=== PATIENT | female | born 1975 | race Caucasian/White ===

== ENCOUNTER 2020-11-19 15:07 | Outpatient (REF) | payer OTHER, SELFPAY ==
--- NOTE | ~2020-11-19 | US_ITS ---
EXAMINATION: ULTRASOUND PELVIC COMPLETE ULTRASOUND TRANSVAGINAL CLINICAL INFORMATION: Check IUD. COMPARISON: None TECHNIQUE: Transabdominal and transvaginal imaging of pelvis is performed. FINDINGS: The uterus is retroverted measuring 8.4 cm in length, 5.8 cm in AP and 5.9 cm in transverse dimension. There are two hypoechoic lesions. 1. Lesion in the anterior fundus measures 3.4 x 3.5 x 3.0 cm. 2. Lesion in the lower anterior uterine segment measures 2.4 x 2.4 x 2.6 cm. The endometrial thickness is 0.7 cm. There is no IUD visualized at this time. There are several nabothian cysts in the cervix. There is a complex area in the cervix measuring 1.5 x 1.3 x 1.5 cm. The right ovary measures 2.6 x 2.0 x 2.37 and volume 6.1 mL. The left ovary measures 3.7 x 2.5 x 2.8 cm and volume 14.0 mL. There is a complex anechoic cyst/daughter cyst measuring 1.8 x 1.8 x 2.0 cm. There is no free fluid in the cul-de-sac. US/US transvaginal IMPRESSION: 1. Two uterine fibroids as described above. 2. Hypoechoic solid appearing lesion in the cervix likely a polyp. Correlate with clinical exam or hysterosonograph. 3. Complex cyst left ovary. 4. No IUD seen. By history patient has this removed. 5. Small nabothian cysts in the cervix.
--- NOTE | ~2020-11-19 | US_ITS ---
EXAMINATION: ULTRASOUND PELVIC COMPLETE ULTRASOUND TRANSVAGINAL CLINICAL INFORMATION: Check IUD. COMPARISON: None TECHNIQUE: Transabdominal and transvaginal imaging of pelvis is performed. FINDINGS: The uterus is retroverted measuring 8.4 cm in length, 5.8 cm in AP and 5.9 cm in transverse dimension. There are two hypoechoic lesions. 1. Lesion in the anterior fundus measures 3.4 x 3.5 x 3.0 cm. 2. Lesion in the lower anterior uterine segment measures 2.4 x 2.4 x 2.6 cm. The endometrial thickness is 0.7 cm. There is no IUD visualized at this time. There are several nabothian cysts in the cervix. There is a complex area in the cervix measuring 1.5 x 1.3 x 1.5 cm. The right ovary measures 2.6 x 2.0 x 2.37 and volume 6.1 mL. The left ovary measures 3.7 x 2.5 x 2.8 cm and volume 14.0 mL. There is a complex anechoic cyst/daughter cyst measuring 1.8 x 1.8 x 2.0 cm. There is no free fluid in the cul-de-sac. US/US pelvic complete IMPRESSION: 1. Two uterine fibroids as described above. 2. Hypoechoic solid appearing lesion in the cervix likely a polyp. Correlate with clinical exam or hysterosonograph. 3. Complex cyst left ovary. 4. No IUD seen. By history patient has this removed. 5. Small nabothian cysts in the cervix.
== END 2020-11-19 15:08 | disposition home or self-care (01) ==
LOC: HO.US 15:07
PROVIDERS: PCP Student in an Organized Health Care Education/Training Program; Visit Provider Advanced Practice Midwife
DX: Z30.431 Encounter for routine checking of intrauterine contraceptive device (principal)
CPT/HCPCS: 76830; 76856

== ENCOUNTER 2021-02-04 15:57 | Outpatient (REF) | payer OTHER, SELFPAY ==
--- NOTE | ~2021-02-04 | US_ITS ---
EXAMINATION: US PELVIS COMPLETE CLINICAL INFORMATION: Follow-up left ovarian cyst; the last menstrual period was on 01/21/2021. COMPARISON: Pelvic ultrasound dated 11/20/2020. TECHNIQUE: Transabdominal and transvaginal imaging were performed. FINDINGS: The uterus is of normal size and echogenicity measuring 9.3 x 7.5 x 7.4 cm. The uterus is retroverted. A regular, homogeneous endometrium is identified measuring 1.2 cm. FIBROIDS: There are 2 fibroids seen. 1. Location: Rightward uterine body, exophytic subserosal. Size: 3.3 x 2.6 x 2.9 cm. Prior: 2.4 x 2.4 x 2.6 cm. Fibroid characteristics: Heterogeneous echotexture. 2. Location: Leftward fundus, subserosal. Size: 4.0 x 2.8 x 3.8 cm. Prior: 3.4 x 3.5 x 3.0 cm. Fibroid characteristics: Heterogeneously hyperechoic. Both ovaries are of normal size and echogenicity. The right measures 3.6 x 2.1 x 2.3 cm for a volume of 9.1 mL. The left measures 2.7 x 2.2 x 2.3 cm for a volume of 7.2 mL. The left ovary contains a 1.9 x 1.8 x 1.7 cm simple cyst. There is no pelvic free fluid. No adnexal mass is seen. US/US pelvic and transvaginal IMPRESSION: 1. Uterine fibroids are redemonstrated, as above. 2. A 1.9 cm in maximal diameter simple left ovarian cyst is seen.
== END 2021-02-04 15:58 | disposition home or self-care (01) ==
LOC: HO.US 15:57
PROVIDERS: Visit Provider Advanced Practice Midwife
DX: N83.202 Unspecified ovarian cyst, left side (principal)
CPT/HCPCS: 76830; 76856

== ENCOUNTER 2021-02-05 16:21 | Outpatient (REF) | payer OTHER, SELFPAY ==
--- NOTE | ~2021-02-05 | MM_ITS ---
EXAMINATION: MM SCREENING DIGITAL BREAST TOMOSYNTHESIS, BILATERAL CLINICAL INFORMATION: Screening. Asymptomatic. The lifetime risk of breast cancer based on the Tyrer-Cuzick Model is 14%. COMPARISON: Mammography: 08/08/2019, 04/06/2018, 12/23/2016, 09/30/2011 TECHNIQUE: Digital breast tomosynthesis is performed in both the craniocaudal and mediolateral oblique views along with computer-aided detection (CAD). Synthesized 2D images are generated from the tomosynthesis. FINDINGS: The breasts are heterogeneously dense, which may obscure small masses (ACR BI-RADS breast composition Category c). There is inhomogeneous parenchymal pattern similar to prior studies. There is no significant mass or architectural abnormality. No abnormal calcifications. The axilla and skin contours are unremarkable. No significant changes. MM/MM tomosynthesis screening BI IMPRESSION: No mammographic evidence of malignancy. ASSESSMENT: BI-RADS 1: Negative RECOMMENDATION: Routine annual mammography screening. This patient's information was entered into a reminder system with a target due date for their next mammogram.
== END 2021-02-05 16:22 | disposition home or self-care (01) ==
LOC: HO.MAMMO 16:21
PROVIDERS: Visit Provider Student in an Organized Health Care Education/Training Program
DX: Z12.31 Encounter for screening mammogram for malignant neoplasm of breast (principal)
CPT/HCPCS: 77063; 77067

== ENCOUNTER 2021-11-14 11:16 | Emergency (ER) | payer OTHER, SELFPAY ==
[2021-11-14 11:34] VITALS: BP 127/72; PULSE 80; RESP 19; TEMP 36.6; O2SAT 98; BMI 34.8
[2021-11-14 13:26] LABS: MANUAL DIFF FLAG NO
[2021-11-14 13:30] LABS: Basophils Absolute Auto 0.1 X10*3/uL (0.0-0.2); Basophils Percent Auto 1.4 % (0-2); Eosinophils Absolute Auto 0.1 X10*3/uL (0.0-0.4); Eosinophils Percent Auto 2.5 % (0-4); Hematocrit 25.7 % (37.0-47.0); Hemoglobin 8.4 g/dl (12.0-16.0); Imm Gran Abs Auto 0.01 X10*3/uL (0.00-0.03); Imm Gran Pct Auto 0.2 % (0.0-0.4); Lymphocytes Absolute Auto 1.3 X10*3/uL (1.2-4.9); Lymphocytes Percent Auto 22.8 % (20-40); Mean Corpuscular HGB Conc 32.7 g/dl (31.0-35.0); Mean Corpuscular Hemoglobin 27.7 pg (27.0-33.0); Mean Corpuscular Volume 84.8 fL (80.0-98.0); Mean Platelet Volume 11.1 fL (9.4-12.3); Monocytes Absolute Auto 0.4 X10*3/uL (0.1-1.2); Monocytes Percent Auto 7.8 % (2-11); Neutrophils Absolute Auto 3.7 x10*3/uL (2.0-8.3); Neutrophils Percent Auto 65.3 % (45-73); Platelet Count 278 X10*3/uL (160-400); Red Blood Count 3.03 X10*6/uL (4.20-5.50); Red Cell Distribution Width 15.7 % (11.0-16.0); White Blood Count 5.7 X10*3/uL (4.8-10.8)
[2021-11-14 13:42] LABS: Anion Gap 10 (12-20); Blood Urea Nitrogen 14 mg/dL (9-16); Calcium 9.4 mg/dL (8.4-10.2); Carbon Dioxide 31 mmol/L (22-29); Chloride 102 mmol/L (96-108); Creatinine Clr Calc Pharmacy 131.7; Estimated Glomerular Filt Rate > 60; Glucose Random 102 mg/dL (60-115); Potassium 4.1 mmol/L (3.3-5.1); Sodium 139 mmol/L (135-145)
[2021-11-14 13:55] LABS: Appearance Urine CLEAR; Color Urine YELLOW; Glucose Urine UA NEG (NEG); Leukocyte Esterase Urine NEG (NEG); Nitrite Urine NEG (NEG); PH 6.5 (5.0-8.0); UACC Culture Trigger NO; Urine Blood 3+ (NEG); Urine Ketones NEG (NEG); Urine Protein NEG (NEG-TRACE)
[2021-11-14 13:57] LABS: UPreg QC Valid YES; Urine Pregnancy NEGATIVE (NEGATIVE)
[2021-11-14 14:04] LABS: WBC Urine 0 /HPF (0-4)
[2021-11-14 14:05] LABS: Bacteria Urine TRACE /LPF; Squamous Epithelial Cell Urine TRACE /LPF
[2021-11-14 14:28] VITALS: BP 100/86
--- NOTE | 2021-11-14 14:43 | ED_ITS ---
HPI - Female Genitourinary General Chief complaint: Vaginal Bleeding Stated complaint: heavy bleeding/chest pains/dizziness/SOB Time Seen by Provider: 11/14/21 13:20 Source: patient and family Mode of arrival: ambulatory Limitations: no limitations History of Present Illness HPI Narrative: 46 yo female with history of hypothyroidism here with reports of heavy vaginal bleeding for the last 3 days. Patient tells me that she has used about 15-20 pads in the last 3 days. She reports some lower pelvic cramping and low back pain. Also feeling like she has some palpitations with movement, generalized weakness and headache. She is not on any anticoagulation. She is not on any control. She does have a history of irregular menses over the last several years and her last period was in August. Related Data Allergies Allergy/AdvReac Type Severity Reaction Status Date / Time azithromycin Allergy Unknown Hives Verified 11/14/21 16:02 Erythromycin Allergy Unknown Unknown Unverified 11/14/21 16:02 erythromycin base Allergy Unknown HIVES, Unverified 05/17/20 15:44 [ERYTHROMYCIN BASE] REDNESS Review of Systems Review of Systems: Yes all other systems are reviewed and are negative Constitutional: Constitutional: Reports no additional constitutional complaints, Denies body ache(s), Denies chills, Denies fever(s), Reports headache(s) and Reports weakness Eyes: Eyes: Reports no additional eye complaints and Denies change in vision ENT: Reports system reviewed and no additional complaints, except as documented, Denies dizziness, Reports headache(s), Denies nasal congestion, Denies nasal discharge and Denies neck pain Cardiovascular: Cardiovascular: Reports no additional cardiovascular complaints, Denies chest pain, Denies leg edema, Reports palpitations and Denies dyspnea Respiratory: Respiratory: Reports no additional respiratory complaints, Denies cough and Denies dyspnea Gastrointestinal: Gastrointestinal: Reports no additional gastrointestinal complaints, Denies abdominal pain, Denies diarrhea, Denies nausea and Denies vomiting Genitourinary: Genitourinary: Reports no additional female genitourinary complaints, Reports abnormal vaginal bleeding, Reports pelvic pain and Denies urinary incontinence Musculoskeletal: Musculoskeletal: Reports no additional musculoskeletal complaints, Reports back pain, Denies arthralgias, Denies joint swelling, Denies neck pain, Denies numbness and Denies tingling Integumentary/Breasts: Skin/Breast: Reports system reviewed and no additional complaints, except as docu and Denies rash Neurologic: Reports system reviewed and no additional complaints, except as documented, Denies Abnormal speech present, Denies dizziness, Reports headache(s), Denies numbness, Denies tingling and Reports weakness Endocrine: Endocrine: Reports palpitations [facility] Past Medical History Attestation statement: The following information was validated with the patient. Source: old records reviewed and nursing notes reviewed Medical History HTN (hypertension) Hypothyroid Rheumatoid arthritis Social History Social History Alcohol intake: current Alcohol intake frequency: holidays/special occasions only Patient Tobacco Use Status: Never used Tobacco Use of substances other than those prescribed or required for medical reasons: No Advance Directives: No Advance Directives Information Provided: No Patient : No Physical Exam Vital Signs: Vital Signs: Last Vital Signs Temp 98.4 F 11/14/21 15:37 Pulse 73 11/14/21 15:37 Resp 18 11/14/21 15:37 BP 107/57 L 11/14/21 15:37 Pulse Ox 98 11/14/21 15:37 BMI result Body Mass Index 34.8 Const: General: cooperative, healthy appearing, comfortable and no acute distress Orientation/consciousness: patient oriented x3 Limitations: no limitations HENMT: Other: Pale conjunctiva Head: Yes normal to inspection Ears: hearing grossly normal bilaterally General nose exam: Normal external nose present Face and sinus: Yes normal facial exam Mouth: Normal oral and palatal mucosa present Throat: Yes posterior oropharynx normal Eyes: General: appearance normal, both eyes and all related structures Pupils: Equal, round and reactive pupils present Neck: Neck: Yes normal visual inspection Chest: Chest palpation & inspection: normal inspection of the chest Resp: Effort & Inspection: normal respiratory effort Auscultation: clear to auscultation bilaterally Cardio: Rate: regular rate Rhythm: regular rhythm Peripheral pulses: Peripheral pulses 2+ throughout GI: Inspection: Yes normal to inspection Palpation (GI): Soft to palpation and nontender Auscultation: normal bowel sounds : 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: 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 External Female Exam: normal external appearance Speculum Exam - Vagina: normal appearance of the vagina and vaginal bleeding (slight-no clots) Speculum Exam - Cervix: normal appearance of the cervix OB/external & speculum: vaginal bleeding (slight-no clots) Back/Spine/Pelvis: Thoracic/Lumbar Spine: thoracic and lumbar spine normal to inspection Skin: General skin exam: no rashes or lesions noted Neuro: General: patient oriented x3, no focal motor deficits and normal sensation to monofilament Cranial nerves: Yes Equal, round and reactive pupils present Cognition (Neuro): normal cognition Speech: No Abnormal speech present Gait exam (Neuro): Normal gait present Motor exam (neuro): 5/5 motor strength present throughout Extrem: General: Yes normal to inspection Course Course Course Narrative: 46-year-old female here with heavy vaginal bleeding for the last 3 days with headache, palpitations, generalized malaise. Will check labs, urine , orthostatic vital signs, pelvic exam 1540-+ortho with HR increase in 30 point, blood pressure stable. hgb 8.4. No previous to compare to. Will give 1 LNS. 1645-pelvic exam shows scant bleeding. Will send CT NG although patient is not concern for STD exposure. Labs on patient portal from 12/2020 who hgb 12/hct 35. Patient tells me that she feels that the bleeding has slowed down since being here. She only has slight bleeding on exam. 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 We discussed to return for worsening bleeding or feeling more symptomatic and at that time would consider transfusion. Reviewed worrisome signs and symptoms of when to return to the emergency department. Comfortable discharge home. MDM - Female Genitourinary Medical Records Attestation: I reviewed the patient's medical records. Lab Data Attestation: I reviewed the patient's lab results. Result diagrams: 11/14/21 13:21 11/14/21 13:21 Labs: Lab Results 11/14/21 11/14/21 11/14/21 Range/Units 13:21 13:21 13:45 WBC 5.7 (4.8-10.8) X10*3/uL RBC 3.03 L (4.20-5.50) X10*6/uL Hgb 8.4 L (12.0-16.0) g/dl Hct 25.7 L (37.0-47.0) % MCV 84.8 (80.0-98.0) fL MCH 27.7 (27.0-33.0) pg MCHC 32.7 (31.0-35.0) g/dl RDW 15.7 (11.0-16.0) % Plt Count 278 (160-400) X10*3/uL MPV 11.1 (9.4-12.3) fL Immature Gran % (Auto) 0.2 (0.0-0.4) % Neut % (Auto) 65.3 (45-73) % Lymph % (Auto) 22.8 (20-40) % Whitfield % (Auto) 7.8 (2-11) % Eos % (Auto) 2.5 (0-4) % Baso % (Auto) 1.4 (0-2) % Lymph # (Auto) 1.3 (1.2-4.9) X10*3/uL Whitfield # (Auto) 0.4 (0.1-1.2) X10*3/uL Eos # (Auto) 0.1 (0.0-0.4) X10*3/uL Baso # (Auto) 0.1 (0.0-0.2) X10*3/uL Abs Immat Gran (auto) 0.01 (0.00-0.03) X10*3/uL Absolute Neuts (auto) 3.7 (2.0-8.3) x10*3/uL Absolute Nucleated RBC 0.000 (0.0-0.012) X10*3/uL Nucleated RBC % (auto) 0.0 (0.0-0.2) /100WBC PT (9.9-13.0) SEC INR (0.9-1.1) Sodium 139 (135-145) mmol/L Potassium 4.1 (3.3-5.1) mmol/L Chloride 102 (96-108) mmol/L Carbon Dioxide 31 H (22-29) mmol/L Anion Gap 10 L (12-20) BUN 14 (9-16) mg/dL Creatinine 0.63 (0.5-1.4) mg/dL Estim Creat Clear Calc 131.7 Estimated GFR > 60 Random Glucose 102 (60-115) mg/dL Calcium 9.4 (8.4-10.2) mg/dL Urine Color YELLOW Urine Appearance CLEAR Urine pH 6.5 (5.0-8.0) Ur Specific Perry 1.020 (1.005-1.025) Urine Protein NEG (NEG-TRACE) MG/DL Urine Glucose (UA) NEG (NEG) MG/DL Urine Ketones NEG (NEG) MG/DL Urine Blood 3+ H (NEG) Urine Nitrite NEG (NEG) Ur Leukocyte Esterase NEG (NEG) Urine RBC 15-29 H (0) /HPF Urine WBC 0 (0-4) /HPF Ur Squamous Epith Cells TRACE /LPF Urine Bacteria TRACE /LPF Urine Test (NEGATIVE) 11/14/21 11/14/21 Range/Units 13:45 15:07 WBC (4.8-10.8) X10*3/uL RBC (4.20-5.50) X10*6/uL Hgb (12.0-16.0) g/dl Hct (37.0-47.0) % MCV (80.0-98.0) fL MCH (27.0-33.0) pg MCHC (31.0-35.0) g/dl RDW (11.0-16.0) % Plt Count (160-400) X10*3/uL MPV (9.4-12.3) fL Immature Gran % (Auto) (0.0-0.4) % Neut % (Auto) (45-73) % Lymph % (Auto) (20-40) % Whitfield % (Auto) (2-11) % Eos % (Auto) (0-4) % Baso % (Auto) (0-2) % Lymph # (Auto) (1.2-4.9) X10*3/uL Whitfield # (Auto) (0.1-1.2) X10*3/uL Eos # (Auto) (0.0-0.4) X10*3/uL Baso # (Auto) (0.0-0.2) X10*3/uL Abs Immat Gran (auto) (0.00-0.03) X10*3/uL Absolute Neuts (auto) (2.0-8.3) x10*3/uL Absolute Nucleated RBC (0.0-0.012) X10*3/uL Nucleated RBC % (auto) (0.0-0.2) /100WBC PT 11.9 (9.9-13.0) SEC INR 1.0 (0.9-1.1) Sodium (135-145) mmol/L Potassium (3.3-5.1) mmol/L Chloride (96-108) mmol/L Carbon Dioxide (22-29) mmol/L Anion Gap (12-20) BUN (9-16) mg/dL Creatinine (0.5-1.4) mg/dL Estim Creat Clear Calc Estimated GFR Random Glucose (60-115) mg/dL Calcium (8.4-10.2) mg/dL Urine Color Urine Appearance Urine pH (5.0-8.0) Ur Specific Perry (1.005-1.025) Urine Protein (NEG-TRACE) MG/DL Urine Glucose (UA) (NEG) MG/DL Urine Ketones (NEG) MG/DL Urine Blood (NEG) Urine Nitrite (NEG) Ur Leukocyte Esterase (NEG) Urine RBC (0) /HPF Urine WBC (0-4) /HPF Ur Squamous Epith Cells /LPF Urine Bacteria /LPF Urine Test NEGATIVE (NEGATIVE) Discharge Plan Discharge Clinical Impression: Menorrhagia Patient Disposition: Home, Self-Care Instructions: Menorrhagia (ED) Additional Instructions: Return if you are changing her pad every hour, increasing weakness or dizziness Follow-up with gynecology Referrals: Faith Peters MD [Primary Care Provider] - 1 week (as needed) Interventions: ED Discharge Assessment Last Done: 11/14/21 16:58 Discharge Date/Time: 11/14/21 17:02
[2021-11-14 15:23] LABS: Prothrombin Time 11.9 SEC (9.9-13.0)
[2021-11-14 15:31] VITALS: BP 107/57; BP 97/44; PULSE 61
[2021-11-14 15:33] VITALS: BP 94/55; PULSE 94
[2021-11-14 15:37] VITALS: BP 107/57; PULSE 73; RESP 18; TEMP 36.9; O2SAT 98
[2021-11-14] MEDS: 0.9 % Sodium Chloride 1,000 ML 999 ML IV (16:01)
[2021-11-15 09:47] LABS: CT PCR NOT DETECTED (Not Detect.); NG PCR NOT DETECTED (Not Detect.)
== END 2021-11-14 17:02 | disposition home or self-care (01) ==
PROVIDERS: Nurse Practitioner Family; Emergency Provider Emergency Medicine; PCP Student in an Organized Health Care Education/Training Program
DX: N92.1 Excessive and frequent menstruation with irregular cycle (principal); I10 Essential (primary) hypertension
CPT/HCPCS: 36415; 80048; 81001; 81025; 85025; 85610; 87491; 87591; 96360; 99284

== ENCOUNTER 2021-12-17 13:39 | Outpatient (REF) | payer OTHER, SELFPAY ==
--- NOTE | ~2021-12-17 | US_ITS ---
EXAMINATION: US PELVIS CLINICAL INFORMATION: Leiomyoma of uterus. Excessive and frequent menses. COMPARISON: Previous pelvic ultrasound most recent January 2021 TECHNIQUE: Ultrasound of the pelvis is performed using both transabdominal and transvaginal transducers along with Doppler. Transvaginal imaging is performed due to inadequate visualization transabdominally. FINDINGS: The uterus is retroverted and retroflexed and measures 9.5 x 6.2 x 7.5 cm in dimension. There are 2 focal uterine lesions suggestive of fibroids measuring 3.6 x 3.1 x 4.1 cm in the left posterior upper uterine body and 3 cm in the right posterior lower uterine segment. These do not appear appreciably changed. Endometrial thickness is normal measuring 1.4 cm. The endometrium appears very hypervascular. There is a focal hyperechoic area in the endometrium questionable for a polyp. This measures 2.1 x 1 x 1.5 cm. There is a 1.8 x 1.4 x 1.9 cm hypoechoic lesion in the cervix questionable for complex nabothian cyst versus fibroid. This was not seen on most recent exam on January 2021, but does not appear appreciably changed from older exam October 2020. The right ovary is normal and measures 3.6 x 2.2 x 1.5 cm. The left ovary measures 3.7 x 3 x 2.2 cm. There is a 2.5 x 3.2 x 2.2 cm minimally complex left ovarian cyst with several thin septations. There is no fluid in the pelvis. US/US pelvic and transvaginal IMPRESSION: Uterine fibroids similar to previous exam. Question 1.8 x 1.4 x 1.9 cm complex nabothian cyst versus cervical fibroid. Very hypervascular heterogeneous endometrium with echogenic area questionable for a polyp. 2.5 x 3.2 x 2.2 cm minimally complex left ovarian cyst.
== END 2021-12-17 13:40 | disposition home or self-care (01) ==
LOC: HO.HMGCX 13:39
PROVIDERS: Visit Provider Advanced Practice Midwife
DX: N92.1 Excessive and frequent menstruation with irregular cycle (principal); D25.9 Leiomyoma of uterus, unspecified
CPT/HCPCS: 76830; 76856

== ENCOUNTER → 2022-01-16 09:40 | Outpatient (BNVA) | payer OTHER, SELFPAY | PROVIDERS: Visit Provider Advanced Practice Midwife | DX: D21.9 Benign neoplasm of connective and other soft tissue, unspecified (principal) ==

== ENCOUNTER 2022-01-17 23:05 | Emergency (ER) | payer OTHER, SELFPAY ==
--- NOTE | ~2022-01-17 | XR_ITS ---
EXAMINATION: XR CHEST CLINICAL INFORMATION: Palpitations. COMPARISON: 02/18/2017 TECHNIQUE: Frontal view of the chest was obtained. FINDINGS: Lungs are mildly hyperexpanded. No consolidation, pneumothorax, or pleural effusion. Cardiomediastinal silhouette is normal. Pulmonary vasculature is unremarkable. No acute osseous findings. XR/XR chest 1V IMPRESSION: No acute pulmonary findings.
--- NOTE | 2022-01-17 23:16 | ECG_ITS ---
Test Reason : PALPITATIONS Blood Pressure : / mmHG Vent. Rate : 068 BPM Atrial Rate : 068 BPM P-R Int : 176 ms QRS Dur : 102 ms QT Int : 420 ms P-R-T Axes : 048 013 012 degrees QTc Int : 446 ms Normal sinus rhythm with sinus arrhythmia Incomplete right bundle branch block Nonspecific T wave abnormality Abnormal ECG When compared with ECG of 06-NOV-2012 09:49, No significant change was found Referred By: Generic ED Physician Electronically Signed By:EFREM OVIEDO
[2022-01-17 23:52] VITALS: BP 114/59; PULSE 68; RESP 14; TEMP 36.9; O2SAT 98; BMI 34.5
[2022-01-17 23:52] LABS: MANUAL DIFF FLAG NO
[2022-01-18 00:05] LABS: Basophils Absolute Auto 0.1 X10*3/uL (0.0-0.2); Basophils Percent Auto 1.5 % (0-2); Eosinophils Absolute Auto 0.2 X10*3/uL (0.0-0.4); Eosinophils Percent Auto 3.1 % (0-4); Hematocrit 31.6 % (37.0-47.0); Hemoglobin 9.5 g/dl (12.0-16.0); Imm Gran Abs Auto 0.01 X10*3/uL (0.00-0.03); Imm Gran Pct Auto 0.1 % (0.0-0.4); Lymphocytes Absolute Auto 1.3 X10*3/uL (1.2-4.9); Lymphocytes Percent Auto 19.6 % (20-40); Mean Corpuscular HGB Conc 30.1 g/dl (31.0-35.0); Mean Corpuscular Hemoglobin 23.2 pg (27.0-33.0); Mean Corpuscular Volume 77.3 fL (80.0-98.0); Monocytes Absolute Auto 0.5 X10*3/uL (0.1-1.2); Monocytes Percent Auto 7.7 % (2-11); Neutrophils Absolute Auto 4.6 x10*3/uL (2.0-8.3); Platelet Count 404 X10*3/uL (160-400); Red Blood Count 4.09 X10*6/uL (4.20-5.50); Red Cell Distribution Width 19.9 % (11.0-16.0); White Blood Count 6.8 X10*3/uL (4.8-10.8)
[2022-01-18 00:12] LABS: Anion Gap 12 (12-20); Blood Urea Nitrogen 11 mg/dL (9-16); Calcium 9.3 mg/dL (8.4-10.2); Carbon Dioxide 28 mmol/L (22-29); Chloride 100 mmol/L (96-108); Creatinine Clr Calc Pharmacy 94.9; Estimated Glomerular Filt Rate > 60; Glucose Random 104 mg/dL (60-115); Potassium 3.7 mmol/L (3.3-5.1); Sodium 136 mmol/L (135-145)
[2022-01-18 00:18] LABS: Troponin-I High Sensitivity < 3.5 ng/L (<3.5-17.0)
[2022-01-18 00:26] LABS: COVID-19 Test Negative (Negative); IDNOW Serial# 16C4AD1C; Influenza A Negative (Negative); Influenza B2 Negative (Negative)
--- NOTE | 2022-01-18 00:38 | ED_ITS ---
HPI - Arrhythmia/Palpitations General Chief Complaint: Arrhythmia/Palpitations Stated Complaint: heart is skipping every 4-5 beats? Time Seen by Provider: 01/18/22 00:37 Source: patient Mode of arrival: ambulatory Limitations: no limitations History of Present Illness complaint: rapid heart beat, skipped beats (feels dizzy, chest pain) and palpitations Onset (ago): hour(s) (3) Duration: intermittent Severity: moderate Context: occurred during rest Associated symptoms: chest pain, shortness of breath, anxiety and other (dizziness) Related Data Home Medications Medication Instructions Recorded Confirmed cholecalciferol (vitamin D3) 25 25 mcg PO DAILY 01/16/22 01/16/22 mcg (1,000 unit) capsule hydroxychloroquine 200 mg tablet 200 mg PO DAILY 01/16/22 01/16/22 (Plaquenil) iron bisglycinate chelate mg PO 01/16/22 01/16/22 lisinopril 20 1 tab PO DAILY 01/16/22 01/16/22 mg-hydrochlorothiazide 25 mg tablet methotrexate sodium 2.5 mg tablet 2.5 mg PO QWEEK 01/16/22 01/16/22 Allergies Allergy/AdvReac Type Severity Reaction Status Date / Time azithromycin Allergy Unknown Hives Verified 01/17/22 23:54 Erythromycin Allergy Unknown Unknown Verified 01/17/22 23:54 erythromycin base Allergy Unknown HIVES, Verified 01/17/22 23:54 [ERYTHROMYCIN BASE] REDNESS Review of Systems Review of Systems: Constitutional : No Weight loss, No Fever, No Chills ENT/Mouth : No sore throat, No Rhinorrhea Eyes: No Eye Pain, No Swelling Cardiovascular : pos Chest Pain, pos SOB, no Dyspnea on Exertion, No Orthopnea, No Edema, pos Palpitations Respiratory : No Cough, No Sputum Gastrointestinal : pos Nausea, No Vomiting, No Diarrhea, No abdominal Pain, No Hematochezia, No Melena Genitourinary : No Dysuria, No Urinary Frequency Musculoskeletal : No joint pain, No Myalgias, No Joint Swelling Skin : No Skin Lesions, No rash Neuro : No Weakness, No Numbness, pos Dizziness, No Headache Psych : No Anxiety/Panic, No Depression Heme/Lymph: No Bruising, No Lymphadenopathy Endocrine : No Polyuria, No Polydipsia All other systems reviewed and are negative [facility] Past Medical History Attestation statement: The following information was validated with the patient. Medical History HTN (hypertension) Hypothyroid Rheumatoid arthritis Social History Social History Alcohol intake: current Alcohol intake frequency: holidays/special occasions only Patient Tobacco Use Status: Never used Tobacco Advance Directives: No Advance Directives Information Provided: No Gender identity: Female Physical Exam Vital Signs: Vital Signs: Last Vital Signs Temp 98.6 F 01/18/22 03:01 Pulse 61 01/18/22 03:01 Resp 15 01/18/22 03:01 BP 100/58 L 01/18/22 03:53 Pulse Ox 99 01/18/22 03:01 BMI result Body Mass Index 34.5 Appearance: Alert. Oriented X3. No acute distress. Eyes: Pupils equal, round and reactive to light. ENT: Pharynx normal. Neck: Normal inspection. Neck supple. CVS: Normal heart rate and rhythm. Pulses normal. Respiratory: No respiratory distress. Breath sounds normal. Abdomen: Soft and nontender. Skin: Skin warm and dry. pale skin color. Normal skin turgor. Extremities: No lower extremity edema. No calf ttp has swelling of feet and hand joints Neuro: Oriented X 3. No motor deficit. No sensory deficit. Course Course Course Narrative: ddimer negative repeat troponin pending repeat trop flat taking ferrous gluconate for anemia - did discuss hematology follow up for Fe infusions as she cannot tolerate oral that well MDM - Arrhythmia/Palpitations MDM Narrative Medical decision making narrative: 46 yo female with hx of menorrhagia, RA on methotrexate, HTN here with c/o 3 hours ago had CP, palptiations, felt dizzy at this time somewhat atypical for ACS will obtain repeat troponin x 2, ddimer, CXR, IVF - her hemoglobin is higher than last time - dispo per results and findings. Lab Data Result diagrams: 01/17/22 23:47 01/17/22 23:47 Labs: Lab Results 01/17/22 01/17/22 01/17/22 Range/Units 23:47 23:47 23:47 WBC 6.8 (4.8-10.8) X10*3/uL RBC 4.09 L D (4.20-5.50) X10*6/uL Hgb 9.5 L (12.0-16.0) g/dl Hct 31.6 L D (37.0-47.0) % MCV 77.3 L (80.0-98.0) fL MCH 23.2 L (27.0-33.0) pg MCHC 30.1 L (31.0-35.0) g/dl RDW 19.9 H (11.0-16.0) % Plt Count 404 H D (160-400) X10*3/uL MPV 10.0 (9.4-12.3) fL Immature Gran % (Auto) 0.1 (0.0-0.4) % Neut % (Auto) 68.0 (45-73) % Lymph % (Auto) 19.6 L (20-40) % [place] % (Auto) 7.7 (2-11) % Eos % (Auto) 3.1 (0-4) % Baso % (Auto) 1.5 (0-2) % Lymph # (Auto) 1.3 (1.2-4.9) X10*3/uL [place] # (Auto) 0.5 (0.1-1.2) X10*3/uL Eos # (Auto) 0.2 (0.0-0.4) X10*3/uL Baso # (Auto) 0.1 (0.0-0.2) X10*3/uL Abs Immat Gran (auto) 0.01 (0.00-0.03) X10*3/uL Absolute Neuts (auto) 4.6 (2.0-8.3) x10*3/uL Absolute Nucleated RBC 0.000 (0.0-0.012) X10*3/uL Nucleated RBC % (auto) 0.0 (0.0-0.2) /100WBC D-Dimer High Sensitivty NG/ML Sodium 136 (135-145) mmol/L Potassium 3.7 (3.3-5.1) mmol/L Chloride 100 (96-108) mmol/L Carbon Dioxide 28 (22-29) mmol/L Anion Gap 12 (12-20) BUN 11 (9-16) mg/dL Creatinine 0.87 (0.5-1.4) mg/dL Estim Creat Clear Calc 94.9 Estimated GFR > 60 Random Glucose 104 (60-115) mg/dL Calcium 9.3 (8.4-10.2) mg/dL Troponin I High Sens < 3.5 (<3.5-17.0) ng/L COVID-19 (ALIREAZ) (Negative) COVID-19 Clin Com Influenza Type A (RAMIRO) (Negative) Influenza Type B (RAMIRO) (Negative) Influenza A & B Note 01/17/22 01/17/22 01/18/22 Range/Units 23:47 23:47 01:10 WBC (4.8-10.8) X10*3/uL RBC (4.20-5.50) X10*6/uL Hgb (12.0-16.0) g/dl Hct (37.0-47.0) % MCV (80.0-98.0) fL MCH (27.0-33.0) pg MCHC (31.0-35.0) g/dl RDW (11.0-16.0) % Plt Count (160-400) X10*3/uL MPV (9.4-12.3) fL Immature Gran % (Auto) (0.0-0.4) % Neut % (Auto) (45-73) % Lymph % (Auto) (20-40) % [place] % (Auto) (2-11) % Eos % (Auto) (0-4) % Baso % (Auto) (0-2) % Lymph # (Auto) (1.2-4.9) X10*3/uL [place] # (Auto) (0.1-1.2) X10*3/uL Eos # (Auto) (0.0-0.4) X10*3/uL Baso # (Auto) (0.0-0.2) X10*3/uL Abs Immat Gran (auto) (0.00-0.03) X10*3/uL Absolute Neuts (auto) (2.0-8.3) x10*3/uL Absolute Nucleated RBC (0.0-0.012) X10*3/uL Nucleated RBC % (auto) (0.0-0.2) /100WBC D-Dimer High Sensitivty 179 NG/ML Sodium (135-145) mmol/L Potassium (3.3-5.1) mmol/L Chloride (96-108) mmol/L Carbon Dioxide (22-29) mmol/L Anion Gap (12-20) BUN (9-16) mg/dL Creatinine (0.5-1.4) mg/dL Estim Creat Clear Calc Estimated GFR Random Glucose (60-115) mg/dL Calcium (8.4-10.2) mg/dL Troponin I High Sens (<3.5-17.0) ng/L COVID-19 (ALIREZA) Negative (Negative) COVID-19 Clin Com See Note Influenza Type A (RAMIRO) Negative (Negative) Influenza Type B (RAMIRO) Negative (Negative) Influenza A & B Note See Note 01/18/22 Range/Units 03:00 WBC (4.8-10.8) X10*3/uL RBC (4.20-5.50) X10*6/uL Hgb (12.0-16.0) g/dl Hct (37.0-47.0) % MCV (80.0-98.0) fL MCH (27.0-33.0) pg MCHC (31.0-35.0) g/dl RDW (11.0-16.0) % Plt Count (160-400) X10*3/uL MPV (9.4-12.3) fL Immature Gran % (Auto) (0.0-0.4) % Neut % (Auto) (45-73) % Lymph % (Auto) (20-40) % [place] % (Auto) (2-11) % Eos % (Auto) (0-4) % Baso % (Auto) (0-2) % Lymph # (Auto) (1.2-4.9) X10*3/uL [place] # (Auto) (0.1-1.2) X10*3/uL Eos # (Auto) (0.0-0.4) X10*3/uL Baso # (Auto) (0.0-0.2) X10*3/uL Abs Immat Gran (auto) (0.00-0.03) X10*3/uL Absolute Neuts (auto) (2.0-8.3) x10*3/uL Absolute Nucleated RBC (0.0-0.012) X10*3/uL Nucleated RBC % (auto) (0.0-0.2) /100WBC D-Dimer High Sensitivty NG/ML Sodium (135-145) mmol/L Potassium (3.3-5.1) mmol/L Chloride (96-108) mmol/L Carbon Dioxide (22-29) mmol/L Anion Gap (12-20) BUN (9-16) mg/dL Creatinine (0.5-1.4) mg/dL Estim Creat Clear Calc Estimated GFR Random Glucose (60-115) mg/dL Calcium (8.4-10.2) mg/dL Troponin I High Sens < 3.5 (<3.5-17.0) ng/L COVID-19 (ALIREZA) (Negative) COVID-19 Clin Com Influenza Type A (RAMIRO) (Negative) Influenza Type B (RAMIRO) (Negative) Influenza A & B Note ECG Data Attestation: I personally reviewed and interpreted this ECG as follows: ECG interpretation date: 01/18/22 ECG interpretation time: 00:39 Interpretation: Rate: 68 Rhythm: NSR [place]: normal Normal P waves. Normal REZA. Normal QRS complex. ST T wave : nonspecific no CARMEN qTC: normal prior studies: no acute ischemia The study has been interpreted contemporaneously by me. . Discharge Plan Discharge Clinical Impression: Chronic anemia, Heart palpitations Chest pain Qualifiers: Chest pain type: precordial pain Qualified Code(s): R07.2 - Precordial pain Patient Disposition: Home, Self-Care Instructions: Chest Pain (ED), Heart Palpitations (ED), Anemia (ED) Additional Instructions: return to ED for any worsening symptoms or concerns you will need outpatient stress test Prescriptions: No Action methotrexate sodium 2.5 mg tablet 2.5 mg PO QWEEK 0RF hydroxychloroquine [Plaquenil] 200 mg tablet 200 mg PO DAILY 0RF lisinopril-hydrochlorothiazide 20-25 mg tablet 1 tab PO DAILY 0RF cholecalciferol (vitamin D3) 25 mcg (1,000 unit) capsule 25 mcg PO DAILY 0RF iron bisglycinate chelate 28 mg iron capsule PO 0RF Referrals: [facility] [Nurse Practitioner] - 1 week Stacia Macdonald MD [Physician] - (iron infusions) Faith Peters MD [Primary Care Provider] - 01/20/22 (outpatient stress test referral) Interventions: ED Discharge Assessment Last Done: 01/18/22 04:16 Discharge Date/Time: 01/18/22 04:17
[2022-01-18 00:45] VITALS: BP 97/51; PULSE 68; RESP 16; O2SAT 97
[2022-01-18] MEDS: Lactated Ringers 1,000 ML 999 ML IV (01:14)
[2022-01-18 01:42] LABS: D Dimer High Sensitivity 179 NG/ML
[2022-01-18 03:01] VITALS: BP 96/45; PULSE 61; RESP 15; TEMP 37; O2SAT 99
[2022-01-18 03:39] LABS: Troponin-I High Sensitivity < 3.5 ng/L (<3.5-17.0)
[2022-01-18 03:53] VITALS: BP 100/58
== END 2022-01-18 04:17 | disposition home or self-care (01) ==
PROVIDERS: Emergency Provider Emergency Medicine; PCP Student in an Organized Health Care Education/Training Program
DX: R00.2 Palpitations (principal); R07.2 Precordial pain; D64.9 Anemia, unspecified; I10 Essential (primary) hypertension; M06.9 Rheumatoid arthritis, unspecified; Z79.899 Other long term (current) drug therapy; Z20.822 Contact with and (suspected) exposure to COVID-19
CPT/HCPCS: 36415; 71045; 80048; 84484; 85025; 85379; 87502; 87635; 93005; 96360; 99284

== ENCOUNTER → 2022-02-04 13:00 | Outpatient (BNV) | payer OTHER, SELFPAY | PROVIDERS: PCP Student in an Organized Health Care Education/Training Program; Visit Provider Internal Medicine | DX: Z09 Encounter for follow-up examination after completed treatment for conditions other than malignant neoplasm (principal); Z86.2 Personal history of diseases of the blood and blood-forming organs and certain disorders involving the immune mechanism; Z85.42 Personal history of malignant neoplasm of other parts of uterus; Z90.710 Acquired absence of both cervix and uterus | CPT/HCPCS: 99204; 99213 ==

== ENCOUNTER 2022-02-17 07:53 | Outpatient (REF) | payer OTHER, SELFPAY | END 2022-02-17 07:54 | disposition home or self-care (01) | LOC: HO.MDS 07:53 | PROVIDERS: Visit Provider Internal Medicine | DX: D50.9 Iron deficiency anemia, unspecified (principal) | CPT/HCPCS: 96365; 96366; J1200; J1750; Q0163 ==

== ENCOUNTER 2022-03-27 11:35 | Outpatient (REF) | payer OTHER, SELFPAY ==
[2022-03-27 13:23] LABS: Hematocrit 34.2 % (37.0-47.0); Hemoglobin 10.6 g/dl (12.0-16.0); Mean Corpuscular Hemoglobin 25.8 pg (27.0-33.0); Mean Corpuscular Volume 83.2 fL (80.0-98.0); Mean Platelet Volume 10.1 fL (9.4-12.3); Platelet Count 463 X10*3/uL (160-400); Red Blood Count 4.11 X10*6/uL (4.20-5.50); Red Cell Distribution Width 20.3 % (11.0-16.0); White Blood Count 5.3 X10*3/uL (4.8-10.8)
[2022-03-27 13:58] LABS: Iron 44 mcg/dL (30-160); Percent Iron Saturation 14 % (15-50); Total Iron Binding Capacity 324 mcg/dL (228-428); Unsaturated Iron Binding 280 ug/dL
[2022-03-27 14:05] LABS: Ferritin 73 ng/mL (10-250)
[2022-03-27 14:07] LABS: HCG Quantitative < 2 mIU/mL; TSH reflex Free T4 1.33 uIU/mL (0.32-4.0)
[2022-03-27 19:13] LABS: CT PCR NOT DETECTED (Not Detect.); NG PCR NOT DETECTED (Not Detect.)
[2022-03-29 09:01] LABS: CA-125 26 U/mL (<35)
[2022-03-31 23:27] LABS: HPV mRNA E6/E7 rflx Not Detected (Not Detected)
== END 2022-03-27 11:36 | disposition home or self-care (01) ==
LOC: HO.LAB 11:35
PROVIDERS: Allergy & Immunology Allergy; PCP Student in an Organized Health Care Education/Training Program; Visit Provider Obstetrics & Gynecology
DX: Z01.411 Encounter for gynecological examination (general) (routine) with abnormal findings (principal); Z11.51 Encounter for screening for human papillomavirus (HPV); N93.9 Abnormal uterine and vaginal bleeding, unspecified; N87.0 Mild cervical dysplasia; N83.299 Other ovarian cyst, unspecified side; D50.8 Other iron deficiency anemias
CPT/HCPCS: 36415; 81025; 82728; 83540; 84443; 84702; 85027; 86304; 87491; 87591; 87624; 88142

== ENCOUNTER 2022-04-15 16:07 | Outpatient (REF) | payer OTHER, SELFPAY ==
--- NOTE | ~2022-04-15 | MM_ITS ---
EXAMINATION: MM SCREENING DIGITAL BREAST TOMOSYNTHESIS, BILATERAL CLINICAL INFORMATION: Screening. Asymptomatic. The lifetime risk of breast cancer based on the Tyrer-Cuzick Model is 14%. COMPARISON: Mammography: February 05, 2021 and studies dating back to September 30, 2011 TECHNIQUE: Digital breast tomosynthesis is performed in both the craniocaudal and mediolateral oblique views along with computer-aided detection (CAD). Synthesized 2D images are generated from the tomosynthesis. FINDINGS: The breasts are extremely dense, which lowers the sensitivity of mammography (ACR BI-RADS breast composition Category d). There are no significant masses, abnormal calcifications, or other abnormalities. There is stable appearance of density about the deep lateral aspect of the right breast. MM/MM tomosynthesis screening BI IMPRESSION: No significant changes from prior exam. ASSESSMENT: BI-RADS 1: Negative RECOMMENDATION: Routine annual mammography screening. This patient's information was entered into a reminder system with a target due date for their next mammogram.
== END 2022-04-15 16:08 | disposition home or self-care (01) ==
LOC: HO.MAMMO 16:07
PROVIDERS: PCP Student in an Organized Health Care Education/Training Program; Visit Provider Obstetrics & Gynecology
DX: Z12.31 Encounter for screening mammogram for malignant neoplasm of breast (principal)
CPT/HCPCS: 77063; 77067

== ENCOUNTER 2022-05-01 15:02 | Outpatient (REF) | payer OTHER, SELFPAY ==
--- NOTE | ~2022-05-01 | US_ITS ---
EXAMINATION: US PELVIS CLINICAL INFORMATION: Fibroids. COMPARISON: Previous pelvic ultrasound most recent November 2021. TECHNIQUE: Ultrasound of the pelvis is performed using both transabdominal and transvaginal transducers along with Doppler. Transvaginal imaging is performed due to inadequate visualization transabdominally. FINDINGS: The uterus is anteverted and retroflexed and measures 9.7 x 6.3 x 6.1 cm. There are 2 focal uterine lesions suggestive of fibroids. There is a 3.4 x 3.6 x 3.3 cm lesion in the right intramural uterine body. This measured 2.9 x 2.9 x 3.1 cm on previous exam. There is a 4.8 x 3.6 x 4.5 cm lesion in the intramural upper posterior uterine body or lower fundus. This measured 3.6 x 3.1 x 4.1 cm. No other focal uterine lesion. Endometrial thickness is upper normal measuring 1.5 cm. There is again a focal echogenic area in the endometrium measuring approximately 5 x 3 x 6 mm. Appearance is again questionable for a small endometrial polyp. There are complex nabothian cysts in the cervix. The right ovary measures 4.2 x 2.7 x 2.3 cm. There is a 2.3 x 1.4 x 1.9 cm minimally complex right ovarian cyst with single thin septation. The left ovary is normal-appearing and measures 3.1 x 1.7 x 2.4 cm. There is no fluid in the pelvis. US/US pelvic and transvaginal IMPRESSION: Two uterine fibroids not appreciably changed from previous exam. Upper normal thickness endometrium and question small endometrial polyp. This is similar to previous exam. Multiple complex nabothian cysts.
== END 2022-05-01 15:03 | disposition home or self-care (01) ==
LOC: HO.US 15:02
PROVIDERS: Visit Provider Advanced Practice Midwife
DX: D21.9 Benign neoplasm of connective and other soft tissue, unspecified (principal); N83.299 Other ovarian cyst, unspecified side; Z87.42 Personal history of other diseases of the female genital tract
CPT/HCPCS: 76830; 76856

== ENCOUNTER → 2022-06-04 09:16 | Outpatient (BNVA) | payer OTHER, SELFPAY | PROVIDERS: PCP Student in an Organized Health Care Education/Training Program; Referring Provider Student in an Organized Health Care Education/Training Program; Visit Provider Internal Medicine Cardiovascular Disease | DX: Z01.810 Encounter for preprocedural cardiovascular examination (principal); R00.2 Palpitations; R07.9 Chest pain, unspecified; D50.9 Iron deficiency anemia, unspecified | CPT/HCPCS: 93005 ==

== ENCOUNTER → 2022-06-25 07:28 | Outpatient (REF) | payer OTHER, SELFPAY ==
--- NOTE | 2022-06-25 07:33 | HM_ITS ---
* Total monitoring time 3 days. * Underlying rhythm is sinus. Average rate 75/Min. Range 49 to 134/Min. * Rare supraventricular ectopy with minimal burden. No significant arrhythmias otherwise. * Symptoms mentioned in diary include palpitations and chest pain. Supraventricular ectopy possibly contributing to some palpitations but burden is minimal. MTDD
--- NOTE | 2022-06-25 07:33 | CA_ITS ---
Transthoracic Echocardiogram Patient (Last, First, Middle): Hilda Banerjee, Gender: Female Date of : 1975 Age: 47 Procedure Date: 06/25/2022 Procedure Type: Transthoracic Echocardiogram Location: OP Height: 167.64 cm Weight: 97.07 kg BSA: 2.06 m2 Heart Rate: 59 bpm BP: 110 / 62 mmHg Entry Level Account Manager: DEMETRIUS Referring MD: Bladimir Appiah MD Ferryboat Operator Helper: Bladimir Appiah MD Symptoms: R00.2 - Palpitations Study Quality: Adequate ECG Rhythm: Bradycardia Conclusions: - Normal left ventricular size, thickness, systolic function, and wall motion. The visually estimated ejection fraction is between 55-60%. Diastolic function is normal for age. - Normal right ventricular cavity size and systolic function. - There is mild dilatation of the ascending aorta measuring 3.30 cm. Findings Left Ventricle Normal left ventricular size, thickness, systolic function, and wall motion. The visually estimated ejection fraction is between 55-60%. Diastolic function is normal for age. Right Ventricle Normal right ventricular cavity size and systolic function. Atria Both atria are normal in size. Aortic Valve Normal aortic valve structure and function. There is no aortic valve stenosis. There is no aortic valve regurgitation. Mitral Valve The mitral valve appears normal. There is trace mitral valve regurgitation. There is no mitral valve stenosis. Pulmonic Valve The pulmonic valve is likely normal. Tricuspid Valve Normal tricuspid valve structure and function. There is trace tricuspid valve regurgitation. Normal right atrial pressure. There is no evidence of pulmonary hypertension. Great Vessels There is mild dilatation of the ascending aorta measuring 3.30 cm. Venous The inferior vena cava is normal in size and collapses greater than 50% with inspiration. Pericardium/Pleural There is no evidence of pericardial effusion. Prior Study Comparison Changes noted compared to prior study dated: 07/22/2014. Mild dilation of ascending aorta 3.3 cm. Measurements 2D Linear Measurements IVSd: 0.83 0.6-0.9/0.6-1.0 cm LVIDd: 4.62 3.9-5.3/4.2-5.9 cm LVIDd Index: 2.24 2.4-3.2/2.2-3.1 cm/m2 LVIDs: 3.01 2.0-3.6 cm LVPWd: 0.78 0.7-1.1 cm LA Diam: 3.70 2.7-3.8/3.0-4.0 cm LAIDs Index: 1.80 1.5-2.3 cm/m2 LV Mass: 148.44 67-162/88-224 g LV Mass Index: 72.06 43-95/49-115 g/m2 LVOT Diam: 1.90 3.0+(-)1.3 cm 2D Systolic Function EF 4C: 58.00 >55% EF 2C: 59.10 >55% EF BiP: 60.80 >55% Mitral Valve MV Pk E: 0.88 MV PK A: 0.56 MV Decel Time: 167.00 E/A: 1.60 E'Lateral: 10.90 E'Medial: 7.72 E/E' Med: 11.40 E/E' Lat: 8.10 PHT: 49.00 MVA PHT: 4.49 Decel Dukes: 5.28 Aortic Valve AoV Pk Demetris: 1.45 AoV Mn Demetris: 1.00 AoV VTI: 0.35 AoV Pk Grad: 8.00 Aov Mn Grad: 4.00 MORENA Cont.VTI: 2.03 LVOT LVOT Pk Demetris: 1.17 LVOT Mn Demetris: 0.75 LVOT VTI: 0.25 LVOT Pk Grad: 5.00 LVOT Mn Grad: 3.00 LVOT Diam: 1.90 LVOT Area: 2.84 Diastolic Function MV Pk E: 0.88 MV Pk A: 0.56 E/A: 1.60 E'Medial: 7.72 E/E' Med: 11.40 E' Laterial: 10.90 E/E' Lat: 8.10 Right Ventricle TAPSE (mm): 18.40 TVS' Demetris: 12.30 Tricuspid Valve TR Pk Demetris: 2.43 TR Pk Grad: 24.00 Great Vessels Aorta Sinus of Valsalva: 3.00 2.0-3.5 cm Ao Asc: 3.30 2.1-3.4 cm Ao Arch: 2.40 Pulmonary Veins Pulm Vein S/D 1.10 Pulmonary Valve PV Pk Demetris: 0.79 Peak PV Grad: 2.00 Updated in Other Vendor System with Status of Final Bladimir Appiah MD electronically signed on 06/26/2022 9:22:37 AM with status of Final
== END ==
LOC: HO.CARD 07:28
PROVIDERS: Visit Provider Internal Medicine Cardiovascular Disease
DX: R00.2 Palpitations (principal)
CPT/HCPCS: 93242; 93306

== ENCOUNTER 2022-07-11 08:30 | Day surgery (SDC) | payer OTHER, SELFPAY ==
--- NOTE | 2022-07-09 10:41 | HO.ANESPROP2 ---
Documented by User: Loree Menon NP 07/09/22 10:44 HPI - Anesthesia Eval Consult details Narrative: 47yo F for D&C Hysteroscopy,poss polypectomy,poss myomectomy Cardiac cleared (referred for palpitations) PMFSH Active Problems Active Problems: All Active Problems (Updated 06/19/22 @ 14:49 by Roberto Hinojosa MD) Endometrial polyp (Acute) Preop cardiovascular exam (Acute) Chest pain (Acute) Palpitations (Acute) Complex ovarian cyst (Acute) Dysplasia of cervix, low grade (MATHEW 1) (Acute) Uterine myoma (Acute) Abnormal uterine bleeding (AUB) (Acute) Iron deficiency anemia (Acute) Fibroids (Acute) History of menorrhagia (Acute) Past Medical History Medical History Dysplasia of cervix, low grade (MATHEW 1) HTN (hypertension) Hypothyroid Rheumatoid arthritis Family History Family History Father Colon cancer Mother Stroke Surgical History Surgical History History of placement of ear tubes Social History Social History Household Members: Significant Other Housing: Apartment Are you a primary child care associate teacher to a significant other at home: No Do you presently have visiting nurse or other home services: No Alcohol intake: current Alcohol intake frequency: a few times a month Patient Tobacco Use Status: Never used Tobacco Are you DNR?: No Advance Directives: No Advance Directives Information Provided: Yes Nutrition Risks: No Nutritional Risk FDLMP: should be this week Current occupational status: employed Gender identity: Female Meds Allergies Allergy/AdvReac Type Severity Reaction Status Date / Time azithromycin Allergy Unknown Hives Verified 07/11/22 08:53 erythromycin base Allergy Unknown HIVES, Verified 07/11/22 08:53 [ERYTHROMYCIN BASE] REDNESS Home Medications Medication Instructions Recorded Confirmed Last Taken Type cholecalciferol (vitamin D3) 25 25 mcg PO DAILY 01/16/22 07/11/22 Unknown History mcg (1,000 unit) capsule iron bisglycinate chelate 28 mg PO BID 01/16/22 07/11/22 Unknown History lisinopril 20 1 tab PO DAILY 01/16/22 07/11/22 Unknown History mg-hydrochlorothiazide 25 mg tablet epinephrine 0.3 mg/0.3 mL 0.03 ml IM DIRECTED 03/27/22 07/11/22 Unknown History injection, auto-injector (EpiPen) fluoxetine 10 mg tablet 10 mg PO DAILY anxiety 03/27/22 07/11/22 Unknown History levothyroxine 150 mcg tablet 150 mcg PO DAILY 03/27/22 07/11/22 Unknown History (Synthroid) collagen,hydrolysate 500 mg-biotin 1 cap PO DAILY 04/14/22 07/11/22 Unknown History 800 mcg-ascorbic acid 50 mg capsule (Collagen 1500 Plus C) Exam Exam Date and Time: July 09, 2022 1041 Pertinent Lab Results Pertinent Lab Results: Laboratory Tests 01/17/22 05/07/22 23:47 13:56 WBC 5.8 Hgb 11.9 L Hct 37.4 Plt Count 316 D Sodium 136 Potassium 3.7 Chloride 100 Carbon Dioxide 28 BUN 11 Creatinine 0.87 Narrative Narrative: EKG 05/2022 Normal sinus rhythm 67 beats per minute, incomplete right bundle-branch block, normal ECG, QT interval 452 milliseconds. ECHO 05/2022 Conclusions: - Normal left ventricular size, thickness, systolic function, and wall motion. The visually estimated ejection fraction is between 55-60%.? Diastolic function is normal for age. ? - Normal right ventricular cavity size and systolic function.? ? - There is mild dilatation of the ascending aorta measuring 3.30 cm. Assessment and Plan Assessment Anesthesia Assessment: Chart Reviewed Documented by User: Cathleen Shannon MD 07/11/22 10:56 [facility] Past Medical History Medical History Dysplasia of cervix, low grade (MATHEW 1) HTN (hypertension) Hypothyroid Rheumatoid arthritis Patient : No Family History Family History Father Colon cancer Mother Stroke Family history of problems with anesthesia: No Surgical History Surgical History History of placement of ear tubes History of Problems with Anesthesia: No Social History Social History Household Members: Significant Other Housing: Apartment Are you a primary child care associate teacher to a significant other at home: No Do you presently have visiting nurse or other home services: No Alcohol intake: current Alcohol intake frequency: a few times a month Patient Tobacco Use Status: Never used Tobacco Are you DNR?: No Advance Directives: No Advance Directives Information Provided: Yes Nutrition Risks: No Nutritional Risk FDLMP: should be this week Current occupational status: employed Gender identity: Female Meds Allergies Allergy/AdvReac Type Severity Reaction Status Date / Time azithromycin Allergy Unknown Hives Verified 07/11/22 08:53 erythromycin base Allergy Unknown HIVES, Verified 07/11/22 08:53 [ERYTHROMYCIN BASE] REDNESS Home Medications Medication Instructions Recorded Confirmed Last Taken Type cholecalciferol (vitamin D3) 25 25 mcg PO DAILY 01/16/22 07/11/22 Unknown History mcg (1,000 unit) capsule iron bisglycinate chelate 28 mg PO BID 01/16/22 07/11/22 Unknown History lisinopril 20 1 tab PO DAILY 01/16/22 07/11/22 Unknown History mg-hydrochlorothiazide 25 mg tablet epinephrine 0.3 mg/0.3 mL 0.03 ml IM DIRECTED 03/27/22 07/11/22 Unknown History injection, auto-injector (EpiPen) fluoxetine 10 mg tablet 10 mg PO DAILY anxiety 03/27/22 07/11/22 Unknown History levothyroxine 150 mcg tablet 150 mcg PO DAILY 03/27/22 07/11/22 Unknown History (Synthroid) collagen,hydrolysate 500 mg-biotin 1 cap PO DAILY 04/14/22 07/11/22 Unknown History 800 mcg-ascorbic acid 50 mg capsule (Collagen 1500 Plus C) Exam Airway Mallampati Class: II TM Dist: >3cm Neck ROM: Full Heart: RRR Lungs: CTA Assessment and Plan Final Anesthetic Review Family History of Problems with Anesthesia: No History of Problems with Anesthesia: No ASA Class: II Final Preanesthetic Review: No Changes in Pt Med Stat, Meds/Allgs Chart Reviewed, Consent Obtained/Reviewed and Anes Risks/Benef Reviewed Patient Risk: Low (H) Procedure Risk: Low Anesthetic Plan Anesthetic Plan: GA Disposition: Standard PACU
[2022-07-11 09:11] LABS: UPreg QC Valid YES; Urine Pregnancy NEGATIVE (NEGATIVE)
[2022-07-11 09:26] VITALS: BMI 34.5
[2022-07-11 09:27] VITALS: BP 121/61; PULSE 73; RESP 18; TEMP 36.6; O2SAT 99
[2022-07-11] MEDS: Lactated Ringers 1,000 ML 100 ML IVCONT (09:32)
--- NOTE | 2022-07-11 10:56 | MHC.SHP ---
Pre-Procedural Eval Section A Date of Service: 07/11/22 The patient is an INPATIENT: No Changes since office visit: No Cold of Flu in the past 2 weeks, No New Medical Problems, No Changes in Medication and No Patient answered all questions The History & Physical has been completed within 30 days and I have reviewed it.: Yes Section B Chief Complaint: Polyp of corpus uteri Allergies: Allergies Allergy/AdvReac Type Severity Reaction Status Date / Time azithromycin Allergy Unknown Hives Verified 07/11/22 08:53 erythromycin base Allergy Unknown HIVES, Verified 07/11/22 08:53 [ERYTHROMYCIN BASE] REDNESS Plan Diagnosis/Plan: Unchanged I have reviewed the history and physical and performed a pertinent physical examination on my patient. No changes have occurred unless specified.
--- NOTE | 2022-07-11 12:06 | PM.OP ---
Brief Operative Note Date of Service: 07/11/22 Pre-op diagnosis: Abnormal uterine bleeding and endometrial polyp Post-op diagnosis: same Procedure: Hysteroscopy D&C, Polypectomy Surgeon: Roberto Hinojosa MD Anesthesia: GLMA Was an Physician Office Rep used for this Procedure?: No Estimated blood loss (mL): 0 Pathology: other (Endometrial Scrapping. Polyp) Condition: stable Disposition: PACU
--- NOTE | 2022-07-11 12:07 | P.OP_ITS ---
Operative Note Operative Note Date of Service: 07/11/22 Narrative: Preop Diagnosis: Abnormal uterine bleeding and Endometrial polyp by US Operation: Diagnostic Hysteroscopy, Dilataion & Curettage and polypectomy Post Op Diagnosis: Endometrial Polyp QBL: Minimal Anesthesia: GLMA Surgeon: Roberto Hinojosa MD Range Examiner: None Complication: None Pathology: Endometrial Scrapings, Endometrial polyp Procedure: The patient was put in the dorsal lithotomy position, scrubbed, and draped in the usual manner. A sterile speculum was inserted in the patient's vagina. The anterior lip of the cervix was grasped with a single tooth tenaculum. The cervix was dilated up to 5 mm, then the scope was inserted in the patient's uterus. Inspection revealed endometrial polyp. The Myosure Reach device was used; it was introduced through the operative channel and polypectomy done with no complications. The scope was then taken out from the uterine cavity, sharp curettings was carried on with moderate amount of tissues retrieved. At the end of the procedure, all instruments were taken out of the patient uterine and vaginal cavity. The single tooth tenaculum was removed and homeostasis was assured using pressure,. The patient tolerated the procedure well and was transferred to the PACU in a stable condition.
--- NOTE | 2022-07-11 12:07 | HO.ANESPROP2 ---
[facility] Active Problems Active Problems: All Active Problems (Updated 06/19/22 @ 14:49 by Roberto Hinojosa MD) Endometrial polyp (Acute) Preop cardiovascular exam (Acute) Chest pain (Acute) Palpitations (Acute) Complex ovarian cyst (Acute) Dysplasia of cervix, low grade (MATHEW 1) (Acute) Uterine myoma (Acute) Abnormal uterine bleeding (AUB) (Acute) Iron deficiency anemia (Acute) Fibroids (Acute) History of menorrhagia (Acute) Past Medical History Medical History Dysplasia of cervix, low grade (MATHEW 1) HTN (hypertension) Hypothyroid Rheumatoid arthritis Family History Family History Father Colon cancer Mother Stroke Family history of problems with anesthesia: No Surgical History Surgical History History of placement of ear tubes History of Problems with Anesthesia: No Social History Social History Household Members: Significant Other Housing: Apartment Are you a primary overnight caregiver to a significant other at home: No Do you presently have visiting nurse or other home services: No Alcohol intake: current Alcohol intake frequency: a few times a month Patient Tobacco Use Status: Never used Tobacco Are you DNR?: No Advance Directives: No Advance Directives Information Provided: Yes Nutrition Risks: No Nutritional Risk Patient : No FDLMP: should be this week Current occupational status: employed Gender identity: Female Meds Allergies Allergy/AdvReac Type Severity Reaction Status Date / Time azithromycin Allergy Unknown Hives Verified 07/11/22 08:53 erythromycin base Allergy Unknown HIVES, Verified 07/11/22 08:53 [ERYTHROMYCIN BASE] REDNESS Active Medications: Current Medications Lactated Ringer's (Lr) 1,000 mls @ 100 mls/hr IVCONT .Q10H JAYLEN Last Admin: 07/11/22 09:32 Dose: 100 mls/hr Home Medications Medication Instructions Recorded Confirmed Last Taken Type cholecalciferol (vitamin D3) 25 25 mcg PO DAILY 01/16/22 07/11/22 Unknown History mcg (1,000 unit) capsule iron bisglycinate chelate 28 mg PO BID 01/16/22 07/11/22 Unknown History lisinopril 20 1 tab PO DAILY 01/16/22 07/11/22 Unknown History mg-hydrochlorothiazide 25 mg tablet epinephrine 0.3 mg/0.3 mL 0.03 ml IM DIRECTED 03/27/22 07/11/22 Unknown History injection, auto-injector (EpiPen) fluoxetine 10 mg tablet 10 mg PO DAILY anxiety 03/27/22 07/11/22 Unknown History levothyroxine 150 mcg tablet 150 mcg PO DAILY 03/27/22 07/11/22 Unknown History (Synthroid) collagen,hydrolysate 500 mg-biotin 1 cap PO DAILY 04/14/22 07/11/22 Unknown History 800 mcg-ascorbic acid 50 mg capsule (Collagen 1500 Plus C) Exam Exam Date and Time: July 11, 2022 1207 Height,Weight and Vital Signs: Height 5 ft 6 in Weight 97.069 kg Last Vital Signs Temp 97.9 F 07/11/22 09:27 Pulse 73 07/11/22 09:27 Resp 18 07/11/22 09:27 BP 121/61 07/11/22 09:27 Pulse Ox 99 07/11/22 09:27 O2 Del Method 07/11/22 09:27 Pertinent Lab Results Pertinent Lab Results: Laboratory Tests 07/11/22 08:45 Urine Test NEGATIVE Airway Mallampati Class: II TM Dist: >3cm Neck ROM: Full Heart: RRR Lungs: CTA Assessment and Plan Final Anesthetic Review Family History of Problems with Anesthesia: No History of Problems with Anesthesia: No ASA Class: II Final Preanesthetic Review: No Changes in Pt Med Stat, Meds/Allgs Chart Reviewed and Consent Obtained/Reviewed Patient Risk: Low Procedure Risk: Low Anesthetic Plan Anesthetic Plan: GA Disposition: Standard PACU
[2022-07-11 12:17] VITALS: BP 104/54; PULSE 74; RESP 16; TEMP 36.4; O2SAT 98
[2022-07-11 12:22] VITALS: BP 111/57; PULSE 61; RESP 16; O2SAT 99
[2022-07-11 12:27] VITALS: BP 110/63; PULSE 63; RESP 18; O2SAT 99
--- NOTE | 2022-07-11 12:31 | HO.POSTANES ---
Post Anesthesia Evaluation Post Anesthesia Evaluation Vital Signs: Vital Signs Temp Pulse Resp BP Pulse Ox O2 Del Method 07/11/22 09:27 97.9 F 73 18 121/61 99 Room Air Anesthesia: General LMA Mental Status: Awake Pain Control: Satisfactory Nausea/Vomiting: None Hydration: Adequate Anesthesia-Related Issues: No Anes. Related Issues
[2022-07-11 12:32] VITALS: BP 113/69; PULSE 65; RESP 18; TEMP 36.1; O2SAT 100
[2022-07-11 12:47] VITALS: BP 117/62; PULSE 66; RESP 18; TEMP 36.2; O2SAT 99
== END 2022-07-11 13:27 | disposition home or self-care (01) ==
PROVIDERS: PCP Student in an Organized Health Care Education/Training Program; Visit Provider Obstetrics & Gynecology
PROC: 0UDB8ZZ Extraction of Endometrium, Via Natural or Artificial Opening Endoscopic (ICD-10-PCS; CPT 58558; principal; 2022-07-11 10:30)
DX: C54.1 Malignant neoplasm of endometrium (principal); N84.0 Polyp of corpus uteri; N87.0 Mild cervical dysplasia; I10 Essential (primary) hypertension; E03.9 Hypothyroidism, unspecified; M06.9 Rheumatoid arthritis, unspecified; Z79.899 Other long term (current) drug therapy; Z88.1 Allergy status to other antibiotic agents
CPT/HCPCS: 58558; 81025; 88305; 88341; 88342; 88360; J1100; J2250; J2405; J3010

== ENCOUNTER 2022-07-18 15:23 | Outpatient (REF) | payer OTHER, SELFPAY ==
--- NOTE | ~2022-07-18 | XR_ITS ---
EXAMINATION: XR CHEST CLINICAL INFORMATION: Endometrial cancer COMPARISON: Previous x-ray most recent December 2021 TECHNIQUE: 2 views of the chest were obtained. FINDINGS: No significant abnormality is noted involving the heart, lungs, mediastinum, bony thorax or soft tissues. XR/XR chest 2V IMPRESSION: Unremarkable examination.
[2022-07-21 14:16] LABS: CA-125 32 U/mL (<35)
== END 2022-07-18 15:24 | disposition home or self-care (01) ==
LOC: HO.LAB 15:23
PROVIDERS: PCP Student in an Organized Health Care Education/Training Program; Visit Provider Obstetrics & Gynecology
DX: N83.299 Other ovarian cyst, unspecified side (principal); C54.1 Malignant neoplasm of endometrium
CPT/HCPCS: 36415; 71046; 86304

== ENCOUNTER 2022-07-22 08:37 | Outpatient (REF) | payer OTHER, SELFPAY ==
[2022-07-22 09:41] LABS: Blood Urea Nitrogen 16 mg/dL (9-16); Estimated Glomerular Filt Rate > 60
== END 2022-07-22 08:38 | disposition home or self-care (01) ==
LOC: HO.LAB 08:37
PROVIDERS: PCP Student in an Organized Health Care Education/Training Program; Visit Provider Obstetrics & Gynecology
DX: C54.1 Malignant neoplasm of endometrium (principal)
CPT/HCPCS: 36415; 82565; 84520

== ENCOUNTER 2022-07-30 06:50 | Outpatient (REF) | payer OTHER, SELFPAY ==
--- NOTE | ~2022-07-30 | CT_ITS ---
EXAMINATION: CT ABDOMEN AND PELVIS WITH CONTRAST CLINICAL INFORMATION: Endometrial cancer. COMPARISON: Ultrasound of 05/01/2022 and 12/17/2021. TECHNIQUE: Multidetector volumetric images were obtained from the superior aspect of the liver through the pubic symphysis following administration 85 mL of Omnipaque 350 intravenous contrast. Sagittal and coronal reformatted images were obtained on the technologist's workstation. Oral contrast: Yes. This CT examination was performed using dose optimization techniques as appropriate, variously including the following: *Automated exposure control *Adjustment of mA and/or kV according to patient size (this includes techniques or standardized protocols for targeted exams where dose is matched to indication/reason for exam; i.e. extremities or head) *Use of iterative reconstruction technique DLP: 1005 mGy-cm FINDINGS: LUNG BASES: The visualized lung bases are unremarkable. No pleural or pericardial effusion. LIVER, GALLBLADDER, AND BILIARY TREE: The liver is prominent at 20 cm in vertical span. No focal hepatic lesion or biliary ductal dilatation is present. The gallbladder is unremarkable with no evidence of radiopaque gallstones, gallbladder wall thickening, or obvious pericholecystic inflammatory changes. PANCREAS: No suspicious masses or peripancreatic inflammatory change. There are a few regions of pancreatic duct measuring up to 3 mm. SPLEEN: Unremarkable. ADRENAL GLANDS: Unremarkable. KIDNEYS AND URETERS: The kidneys are normal in size, shape, and attenuation. No hydronephrosis, hydroureter, or calculi seen. No perinephric stranding. BLADDER: Unremarkable. GASTROINTESTINAL TRACT: No dilated loops of large or small bowel are evident. No free air or free fluid is seen. There is a small hiatal hernia. No pericolonic inflammatory change. No evidence of acute appendicitis. ABDOMINAL WALL: There is a small fat-containing umbilical hernia. LYMPH NODES: No lymphadenopathy appreciated. VASCULAR: Unremarkable. PELVIC VISCERA: There is an enhancing 4.1 x 4.0 cm circumscribed density within the left uterine fundus consistent with fibroid tumor. There is a 2.2 x 2.2 cm left lower uterine segment low density lesion without definite enhancement which may represent a fibroid tumor as well. There are a few subcentimeter low-density regions within the lower uterine segment/cervix likely representing nabothian cysts. OSSEOUS STRUCTURES: No destructive bony lesions identified. CT/CT abdomen pelvis w IV con IMPRESSION: 1. Prominent liver at 20 cm in vertical span. 2. Fibroid uterus. 3. No lymphadenopathy appreciated. Fleischner guidelines were followed.
[2022-07-30] MEDS: Barium Sulfate Oral (Berry) 450 ML ORAL.SUSP 900 ML PO (10:08)
[2022-07-30] MEDS: iohexoL 350 MG/ML 100 ML INFUS..BTL IV (10:08)
== END 2022-07-30 06:51 | disposition home or self-care (01) ==
LOC: HO.CT 06:50
PROVIDERS: PCP Student in an Organized Health Care Education/Training Program; Visit Provider Obstetrics & Gynecology
DX: C54.1 Malignant neoplasm of endometrium (principal)
CPT/HCPCS: 74177; Q9967

== ENCOUNTER → 2022-12-22 08:26 | Outpatient (BNVA) | payer OTHER, SELFPAY | PROVIDERS: PCP Student in an Organized Health Care Education/Training Program; Visit Provider Physician Assistant | DX: Z13.89 Encounter for screening for other disorder (principal) ==

== ENCOUNTER 2023-02-04 12:25 | Outpatient (REF) | payer OTHER, SELFPAY ==
--- NOTE | ~2023-02-04 | XR_ITS ---
EXAMINATION: XR ANKLE, LEFT CLINICAL INFORMATION: Pain in left ankle COMPARISON: None available. TECHNIQUE: AP, lateral, and mortise views of the left ankle. FINDINGS: The bones and soft tissues are normal. No fracture. Alignment is anatomic. Joint spaces are maintained. No joint effusion. XR/XR ankle LT min 3V IMPRESSION: Normal left ankle.
== END 2023-02-04 12:26 | disposition home or self-care (01) ==
LOC: HO.HHCX 12:25
PROVIDERS: Visit Provider Student in an Organized Health Care Education/Training Program
DX: M25.572 Pain in left ankle and joints of left foot (principal)
CPT/HCPCS: 73610

== ENCOUNTER 2023-03-12 09:46 | Day surgery (SDC) | payer OTHER, SELFPAY ==
[2023-03-10 15:18] VITALS: BMI 34.5
--- NOTE | 2023-03-12 09:55 | MHC.SHP ---
Pre-Procedural Eval Section A Date of Service: 03/12/23 Section B Chief Complaint: Family history of malignant neoplasm of digestive Relevant Family History (Specify if Yes): No Relevant Social History: None Present Medications: see Short Stay Collaborative assessment Medical History: Significant History (Dysplasia of cervix, low grade (MATHEW 1) HTN (hypertension) Hypothyroid Rheumatoid arthritis) History of Previous Operations: Relevant previous surgery/procedure and date(s) (History of placement of ear tubes) Allergies: Allergies Allergy/AdvReac Type Severity Reaction Status Date / Time azithromycin Allergy Unknown Hives Verified 12/22/22 08:33 erythromycin base Allergy Unknown Hives, Verified 12/22/22 08:33 [ERYTHROMYCIN BASE] redness Review of Systems Sugical H&P ROS: Negative: Constitution, Cardiovascular, Respiratory, Neurological, Psychiatric, Hem-Onc, Allergic/Immunologic, Gastrointestinal, Genitourinary, Musculoskeletal, Integumentary, Endocrine and Eyes/Ears/Nose/Throat Exam Surgical H&P Exam: Normal: HEENT, Normal: Heart, Normal: Lungs, Normal: Extremities, Normal: Abdomen, Normal: Skin and Normal: Neurological Plan Diagnosis/Plan: Unchanged I have reviewed the history and physical and performed a pertinent physical examination on my patient. No changes have occurred unless specified. Time Spent With Patient Time: Total time managing care of this patient today ____ minutes.
--- NOTE | 2023-03-12 09:59 | HO.ANESPROP2 ---
[facility] Active Problems Active Problems: All Active Problems (Updated 12/22/22 @ 09:57 by Tanisha Chen PA-C) History of menorrhagia (Acute) Fibroids (Acute) Iron deficiency anemia (Acute) Abnormal uterine bleeding (AUB) (Acute) Uterine myoma (Acute) Dysplasia of cervix, low grade (MATHEW 1) (Acute) Complex ovarian cyst (Acute) Palpitations (Acute) Chest pain (Acute) Preop cardiovascular exam (Acute) Endometrial polyp (Acute) Endometrial adenocarcinoma (Acute) Family history of colon cancer (Acute) Encounter for screening colonoscopy (Acute) Past Medical History Medical History (Updated 12/22/22 @ 09:57 by Tanisha Chen PA-C) Dysplasia of cervix, low grade (MATHEW 1) HTN (hypertension) Hypothyroid Rheumatoid arthritis Uterine cancer Family History Family History Father Colon cancer Mother Stroke Family history of problems with anesthesia: No Surgical History Surgical History (Updated 03/12/23 @ 10:01 by Fariha Dodd RN) H/O: hysterectomy History of hysteroscopy History of placement of ear tubes History of Problems with Anesthesia: No Social History Social History Household Members: Significant Other Housing: Apartment Are you a primary career placement specialist to a significant other at home: No Do you presently have visiting nurse or other home services: No Alcohol intake: current Alcohol intake frequency: a few times a month Patient Tobacco Use Status: Never used Tobacco Advance Directives: No Advance Directives Information Provided: Yes Current occupational status: employed Gender identity: Female Meds Allergies Allergy/AdvReac Type Severity Reaction Status Date / Time azithromycin Allergy Unknown Hives Verified 12/22/22 08:33 erythromycin base Allergy Unknown Hives, Verified 12/22/22 08:33 [ERYTHROMYCIN BASE] redness Active Medications: Current Medications Lactated Ringer's (Lr) 1,000 mls @ 100 mls/hr IVCONT .Q10H COUNT INCLUDES THE [facility] Home Medications Medication Instructions Recorded Confirmed Last Taken Type cholecalciferol (vitamin D3) 25 25 mcg PO DAILY 01/16/22 03/10/23 Unknown History mcg (1,000 unit) capsule iron bisglycinate chelate 28 mg PO BID 01/16/22 03/10/23 Unknown History lisinopril 20 1 tab PO DAILY 01/16/22 03/10/23 Unknown History mg-hydrochlorothiazide 25 mg tablet epinephrine 0.3 mg/0.3 mL 0.03 ml IM DIRECTED 03/27/22 03/10/23 Unknown History injection, auto-injector (EpiPen) fluoxetine 10 mg tablet 10 mg PO DAILY anxiety 03/27/22 03/10/23 Unknown History levothyroxine 150 mcg tablet 150 mcg PO DAILY 03/27/22 03/10/23 Unknown History (Synthroid) collagen,hydrolysate 500 mg-biotin 1 cap PO DAILY 04/14/22 03/10/23 Unknown History 800 mcg-ascorbic acid 50 mg capsule (Collagen 1500 Plus C) Exam Exam Date and Time: March 12, 2023 0959 Height,Weight and Vital Signs: Height 5 ft 6 in Weight 97.069 kg Airway Mallampati Class: I TM Dist: >3cm Neck ROM: Full Assessment and Plan Assessment Anesthesia Assessment: Anesthesia Plan Discussed and Chart Reviewed Final Anesthetic Review Family History of Problems with Anesthesia: No History of Problems with Anesthesia: No NPO: Yes ASA Class: II Final Preanesthetic Review: No Changes in Pt Med Stat, Meds/Allgs Chart Reviewed, Consent Obtained/Reviewed and Anes Risks/Benef Reviewed Patient Risk: Low Procedure Risk: Low Anesthetic Plan Anesthetic Plan: MAC: Disposition: Standard PACU
[2023-03-12 10:10] VITALS: BP 118/73; PULSE 75; RESP 16; TEMP 36.6; O2SAT 94
[2023-03-12] MEDS: Lactated Ringers 1,000 ML 100 ML IVCONT (10:22)
--- NOTE | 2023-03-12 10:43 | W.PM.OPN ---
Operative Note Operative Note Date of Service: 03/12/23 Narrative: Operative Information Procedure Description: Colonoscopy Indication: FH of CRC Anesthesia: MAC COLONOSCOPY Instrument: Olympus variable stiffness pediatric scope 190L Colonoscopy Monitoring: Vital signs and clinical assessment, continuous EKG monitoring, Pulse oximetry, Carbon Dioxide monitoring and blood pressure monitoring were done throughout the procedure. Colon withdrawal time was 8 minutes. Procedure: The patient was placed in the left lateral decubitis position and pre-procedure medications were administered. After a digital rectal examination of the ano-rectum, the video colonoscope was inserted into the rectum and advanced through the colon to the cecum/TI. The colonoscope was slowly withdrawn in a retrograde panoramic fashion and the colon mucosa was carefully examined including a retroflexed view of the rectum. Findings and interventions are described below. Procedure Difficulty: easy Findings: Terminal Ileum-normal Cecum: 8-10 mm flat polyp noted, lifted with eleview injection and removed with cold snare Ascending Colon: normal Transverse Colon -normal Descending Colon:normal Sigmoid Colon: mild diverticulosis Rectum: Retroflexion with small internal hemorrhoids, grade I Anorectum - normal Colon preparation: Lorenzo Bowel Preparation Scale Right colon; 3 Transverse colon: 3 Left colon; 3 (0 = Unprepared colon segment with mucosa not seen due to solid stool that cannot be cleared. 1 = Portion of mucosa of the colon segment seen, but other areas of the colon segment not well seen due to staining, residual stool and/or opaque liquid. 2 = Minor amount of residual staining, small fragments of stool and/or opaque liquid, but mucosa of colon segment seen well. 3 = Entire mucosa of colon segment seen well with no residual staining, small fragments of stool or opaque liquid) Impression and Post Procedure Diagnosis: polyp internal hemorrhoids diverticular disease Plan: High fiber diet leaflet Avoid straining at stool, epsom salts and sitz bath, anusol supps or cream Repeat Colonoscopy in 5 years due to FH or earlier if clinically indicated Above findings were reviewed with the patient and relevant handouts were provided if indicated.
[2023-03-12 10:49] VITALS: BP 100/50; PULSE 85; RESP 19; TEMP 36.1; O2SAT 98
[2023-03-12 11:04] VITALS: BP 97/62; PULSE 75; RESP 20; TEMP 36.8; O2SAT 98
[2023-03-12 11:14] LABS: UPreg QC Valid YES; Urine Pregnancy NEGATIVE (NEGATIVE)
== END 2023-03-12 11:51 | disposition home or self-care (01) ==
PROVIDERS: Anesthesiology; PCP Student in an Organized Health Care Education/Training Program; Visit Provider Internal Medicine Gastroenterology
PROC: 0DJD8ZZ Inspection of Lower Intestinal Tract, Via Natural or Artificial Opening Endoscopic (ICD-10-PCS; CPT 45378; principal; 2023-03-12 11:40)
DX: Z12.11 Encounter for screening for malignant neoplasm of colon (principal); Z80.0 Family history of malignant neoplasm of digestive organs; D12.0 Benign neoplasm of cecum; K57.30 Diverticulosis of large intestine without perforation or abscess without bleeding; K64.0 First degree hemorrhoids; C55 Malignant neoplasm of uterus, part unspecified; I10 Essential (primary) hypertension; M06.9 Rheumatoid arthritis, unspecified; N87.0 Mild cervical dysplasia; E03.9 Hypothyroidism, unspecified; Z90.710 Acquired absence of both cervix and uterus; Z79.899 Other long term (current) drug therapy; Z88.1 Allergy status to other antibiotic agents
CPT/HCPCS: 45385; 45381; 81025; 88305

== ENCOUNTER → 2023-03-12 09:46 | Outpatient (BNV) | payer OTHER, SELFPAY | PROVIDERS: PCP Student in an Organized Health Care Education/Training Program; Visit Provider Internal Medicine Gastroenterology | DX: Z12.11 Encounter for screening for malignant neoplasm of colon (principal); K63.5 Polyp of colon | CPT/HCPCS: 45385 ==

== ENCOUNTER 2023-03-25 09:08 | Outpatient (AMB) | payer OTHER, SELFPAY ==
--- NOTE | 2023-03-25 09:18 | MHC.OFFVIS ---
Intake Vital Signs 03/25/23 09:28 Height 5 ft 6.5 in Weight 213 lb BMI 33.9 BP 126/73 Blood Pressure Location Lt brachial Position Sitting Pulse 74 Intake Visit Reasons: S/p colon- Lawson Intake Note: Patient follow up for Colonoscopy results. Patient cc: acid reflex on and off. Denies any other GI issues. Extraction Supervisor Required: No Accompanied by: Self / Same As Patient Allergies azithromycin Allergy (Unknown, Verified 03/25/23 09:24) Hives erythromycin base [ERYTHROMYCIN BASE] Allergy (Unknown, Verified 03/25/23 09:24) Hives, redness Medication List - Last Reconciled 03/25/23 by Tanisha Chen PA-C adalimumab (Humira(CF) Pen) 40 mg subcut Q2W vharavka-nmmqgh-dnjtcabg acid 500 mg-800 mcg- 50 mg (Collagen 1500 Plus C) 1 cap PO DAILY epinephrine (EpiPen) 0.03 mL IM DIRECTED fluoxetine 10 mg PO DAILY levothyroxine (Synthroid) 150 mcg PO DAILY lisinopril-hydrochlorothiazide 20-25 mg 1 tab PO DAILY HPI HPI Comments History of Present Illness Details A 47 y/o female f/u after index screening she tolerated well Sometimes constipation-dietary modifications, PFSH Medical History (Updated 03/25/23 @ 09:19 by Tanisha Chen PA-C) Dysplasia of cervix, low grade (MATHEW 1) HTN (hypertension) Hypothyroid Rheumatoid arthritis Uterine cancer Surgical History H/O: hysterectomy History of hysteroscopy History of placement of ear tubes Hx of colonoscopy Family History Father Colon cancer Mother Stroke Social History Household Members: Significant Other Housing: Apartment Are you a primary child adolescent care to a significant other at home: No Do you presently have visiting nurse or other home services: No Alcohol intake: current Alcohol intake frequency: holidays/special occasions only Patient Tobacco Use Status: Never used Tobacco Current occupational status: employed Gender identity: Female Female Reproductive History Menstrual Age of Menarche: 11 Review of Systems Const All systems reviewed & are unremarkable except as noted in HPI and below GI Denies abdominal pain and Reports constipation Physical Exam Vital Signs: Last Vital Signs Pulse 74 03/25/23 09:28 BP 126/73 03/25/23 09:28 BMI result Body Mass Index 33.9 Const General: cooperative, healthy appearing, comfortable and no acute distress Orientation/consciousness: patient oriented x3 Limitations: no limitations Eyes Sclerae: sclerae normal Resp Effort & Inspection: normal respiratory effort and able to speak in complete sentences Neuro General: patient oriented x3 Psych Appearance: grossly normal and well kempt Mental Status: mental status grossly normal Speech and movement: Normal speech and movement present and Clear speech present Affect: normal affect Attitude: cooperative Thought process: Normal thought process present Thought content: Normal thought content present Insight: Good insight present (Psych) Judgement: Good judgement present (Psych) Results Reviewed Results Reviewed: mpression and Post Procedure Diagnosis: polyp internal hemorrhoids diverticular disease Plan: High fiber diet leaflet Avoid straining at stool, epsom salts and sitz bath, anusol supps or cream Repeat Colonoscopy in 5 years due to FH or earlier if clinically indicated Name:?Hilda Banerjee Age/Sex: 47/F Attending: Joya Lawson MD : 1975 Submitted by: Joya Lawson MD Copies to: Faith Peters MD MR #: [id number] ? Status: [facility] Collected: 03/12/23 Location: [facility] Received: 03/12/23 Diagnosis Colon, cecum, polypectomy:? Sessile serrated polyp/lesion without cytologic dysplasia. Clinical History Pre-Op Dx:? Screening Post-Op Dx: Diverticulosis, colon polyp, hemorrhoids Assessment & Plan Assessment & Plan (1) Sessile serrated polyp of colon: Code(s): D12.6 - Benign neoplasm of colon, unspecified Plan: Repeat asymptomatic colonoscopy 5 years All first-degree relatives should begin screening at age 40 (2) Diverticulosis of colon: Code(s): K57.30 - Diverticulosis of large intestine without perforation or abscess without bleeding Plan: Maintain high-fiber diet Diverticulosis/diverticulitis ER protocol (3) Hemorrhoids: Code(s): K64.9 - Unspecified hemorrhoids Plan: Avoid straining Maintain high-fiber diet Medications: New methylcellulose (laxative) (Citrucel) 500 mg PO TID 90 tabs 5RF Patient Instructions: Repeat asymptomatic colonoscopy 5 All first-degree relatives begin colon screening at no later than age 40 Maintain high-fiber diet, literature given Avoid straining with hemorrhoid Diverticulosis/diverticulitis ER protocol discuss Encouraged to call questions or concerns Appreciate the opportunity assist in the care the patient Coding Level of Care Code Est Pt Level 3 (49617) Diagnoses Sessile serrated polyp of colon D12.6 Diverticulosis of colon K57.30 Hemorrhoids K64.9 Time Spent (min) 30
[2023-03-25 09:28] VITALS: BP 126/73; PULSE 74; BMI 33.9
== END 2023-03-25 10:26 | disposition home or self-care (01) ==
PROVIDERS: Visit Provider Physician Assistant
DX: D12.6 Benign neoplasm of colon, unspecified (principal); K57.30 Diverticulosis of large intestine without perforation or abscess without bleeding; K64.9 Unspecified hemorrhoids
CPT/HCPCS: 99213

== ENCOUNTER → 2023-03-25 09:08 | Outpatient (BNVA) | payer OTHER, SELFPAY | PROVIDERS: Visit Provider Physician Assistant ==

== ENCOUNTER 2023-04-22 08:22 | Outpatient (REF) | payer OTHER, SELFPAY ==
--- NOTE | ~2023-04-22 | MM_ITS ---
EXAMINATION: MM SCREENING DIGITAL BREAST TOMOSYNTHESIS, BILATERAL CLINICAL INFORMATION: Screening. Asymptomatic. COMPARISON: Mammography: 04/15/2022, and studies dating back to 2011. TECHNIQUE: Digital breast tomosynthesis is performed in both the craniocaudal and mediolateral oblique views along with computer-aided detection (CAD). Synthesized 2D images are generated from the tomosynthesis. FINDINGS: The breasts are heterogeneously dense, which may obscure small masses (ACR BI-RADS breast composition Category c). There are no suspicious masses, suspicious grouped calcifications, or areas of architectural distortion. The parenchymal pattern is stable from prior exams. There are no skin changes. Stable low-lying left axillary lymph node. MM/MM tomosynthesis screening BI IMPRESSION: No mammographic evidence of malignancy. Stable benign findings. ASSESSMENT: BI-RADS BI-RADS 2 - Benign Findings RECOMMENDATION: Routine annual mammography screening. 1 year F/U This examination should not preclude the clinical evaluation of a suspicious palpable abnormality. This patient's information was entered into a reminder system with a target due date for their next mammogram.
== END 2023-04-22 08:23 | disposition home or self-care (01) ==
LOC: HO.MAMMO 08:22
PROVIDERS: PCP Student in an Organized Health Care Education/Training Program; Visit Provider Student in an Organized Health Care Education/Training Program
DX: Z12.31 Encounter for screening mammogram for malignant neoplasm of breast (principal)
CPT/HCPCS: 77063; 77067

== ENCOUNTER → 2023-04-22 08:30 | Outpatient (BNV) | payer OTHER, SELFPAY | PROVIDERS: PCP Student in an Organized Health Care Education/Training Program; Visit Provider Radiology Diagnostic Radiology | DX: Z12.31 Encounter for screening mammogram for malignant neoplasm of breast (principal) | CPT/HCPCS: 77063; 77067 ==

== ENCOUNTER 2023-06-17 09:32 | Outpatient (AMB) | payer OTHER, SELFPAY ==
[2023-06-17 09:34] VITALS: BP 130/82; PULSE 65; BMI 34.0
--- NOTE | 2023-06-17 09:34 | A.OFFVIS_ITS ---
Intake Vital Signs 06/17/23 09:34 Height 5 ft 6.5 in Weight 213 lb 13.574 oz BMI 34.0 BP 130/82 Blood Pressure Location Lt brachial Position Sitting Pulse 65 Intake Visit Reasons: 1 yr fu Intake Note: 1 year follow-up with ekg c/o palpitations still in center of chest lasting a few seconds Coagulator Required: No Allergies azithromycin Allergy (Unknown, Verified 03/25/23 09:24) Hives erythromycin base [ERYTHROMYCIN BASE] Allergy (Unknown, Verified 03/25/23 09:24) Hives, redness Medication List - Last Reconciled 06/17/23 by Bladimir Appiah MD adalimumab (Humira(CF) Pen) 40 mg subcut Q2W unkdlump-cyhxes-vbopbvsz acid 500 mg-800 mcg- 50 mg (Collagen 1500 Plus C) 1 cap PO DAILY epinephrine (EpiPen) 0.03 mL IM DIRECTED fluoxetine 10 mg PO DAILY levothyroxine (Synthroid) 150 mcg PO DAILY lisinopril-hydrochlorothiazide 20-25 mg 1 tab PO DAILY prednisone mg PO HPI HPI Comments History of Present Illness Details Pleasant 48-year-old female who is here for perioperative cardiovascular risk assessment. She has been experiencing menorrhagia and developed iron deficiency anemia. She has been experiencing palpitations, burning chest pains, fatigue and shortness of breath. She has been on iron supplements which has improved her symptoms. She had iron saturation of 7% in January 2022. She has been to the emergency department with burning chest discomfort and has been ruled out. Her EKG has not shown any dynamic changes. Her symptoms have improved with iron supplementation at this stage. She has no history of hypertension and has been on medications for that and with good blood pressure control. She is here because she needs potentially removal of fibroids. She has some palpitations off and on and the happening every other day. She does feels that her heart is skipping a beat. Her daughter has atrial fibrillation. 06/17/23: She returns for follow-up. S he had echocardiography in May 2022 which showed normal biventricular function with mild ascending aorta dilatation at 3.3 cm. She also had Holter monitor which showed rare supraventricular ectopy. She is complaining of rare palpitations. They also last for few seconds. She is not bothered by them. She had rheumatoid arthritis flare and has been on prednisone. She is saying that sometimes she gets palpitations after taking fluoxetine. I have explained the echocardiography and Holter result to her. [facility] Medical History (Updated 05/12/23 @ 11:42 by [employer] [place]) Uterine cancer Dysplasia of cervix, low grade (MATHEW 1) HTN (hypertension) Rheumatoid arthritis Hypothyroid Surgical History H/O: hysterectomy History of hysteroscopy History of placement of ear tubes Hx of colonoscopy Family History Father Colon cancer Mother Stroke Social History Household Members: Significant Other Housing: Apartment Are you a primary healthcare sales representative to a significant other at home: No Do you presently have visiting nurse or other home services: No Alcohol intake: current Alcohol intake frequency: holidays/special occasions only Patient Tobacco Use Status: Never used Tobacco Current occupational status: employed Gender identity: Female Female Reproductive History Menstrual Age of Menarche: 11 Review of Systems Const Denies chills, Denies fatigue, Denies fever(s), Denies frequent falls, Denies weakness, Denies weight gain and Denies weight loss ENT Denies dizziness Card Denies chest pain, Denies leg edema, Denies lightheadedness, Denies palpitations, Denies dyspnea, Denies dyspnea on exertion, Denies orthopnea and Denies other (loss of consciousness) Resp Denies cough, Denies dyspnea and Denies dyspnea on exertion GI Denies hematochezia and Denies change in stool character Musc Denies abnormal gait, Denies muscle weakness, Denies numbness, Denies radiating pain into limb and Denies tingling Neuro Denies abnormal gait, Denies dizziness, Denies frequent falls, Denies numbness, Denies tingling and Denies weakness Endo Denies fatigue and Denies palpitations Physical Exam Vital Signs: BMI result Body Mass Index 34.0 GENERAL APPEARANCE: in no acute distress, pleasant. NECK: no carotid bruit, no jugular venous distention. SKIN: no suspicious lesions, warm and dry. HEART: no murmurs, regular rate and rhythm. LUNGS: clear to auscultation bilaterally. ABDOMEN: soft, nontender. EXTREMITIES: no edema. PERIPHERAL PULSES: equal. NEUROLOGIC: No gross deficits, AAO X 3 Office Procedures EKG Details: Sinus rhythm 65 beats per minute, normal axis, nonspecific ST-T changes, QTC 420 milliseconds. [id number], Complete Assessment & Plan Assessment & Plan (1) Palpitations: Code(s): R00.2 - Palpitations Plan Pleasant 48-year-old female who is in for follow-up. She has background of hypertension. Blood pressure control is good currently on lisinopril and hydrochlorothiazide. She has rheumatoid arthritis and has been on Humira. Recently also has been on prednisone due to a flare. Her echocardiography has shown normal biventricular function. Holter has shown rare supraventricular ectopy. She is also getting rare symptoms at this point lasting for few seconds. We discussed and have decided to just observe for now. If at some stage she had more palpitations then I would consider calcium channel katty. Given the fact that she has EpiPen as 1 of her prescriptions, I would avoid using beta-blockers. Thank you for allowing me to participate in the care of your patient. Please feel free to contact me if you have any questions. Coding Level of Care Code Est Pt Level 3 (56961) Diagnoses Palpitations R00.2 CPT Codes EKG - CPT: 97654-[id number], Complete ([id number])
== END 2023-06-17 10:04 | disposition home or self-care (01) ==
PROVIDERS: PCP Student in an Organized Health Care Education/Training Program; Visit Provider Internal Medicine Cardiovascular Disease
DX: R00.2 Palpitations (principal)
CPT/HCPCS: 93010; 99213

== ENCOUNTER → 2023-06-17 09:32 | Outpatient (BNVA) | payer OTHER, SELFPAY | PROVIDERS: PCP Student in an Organized Health Care Education/Training Program; Visit Provider Internal Medicine Cardiovascular Disease | DX: R00.2 Palpitations (principal); I10 Essential (primary) hypertension; Z79.899 Other long term (current) drug therapy | CPT/HCPCS: 93005 ==

== ENCOUNTER 2023-11-09 21:47 | Emergency (ER) | payer OTHER, SELFPAY ==
--- NOTE | ~2023-11-09 | XR_ITS ---
EXAMINATION: XR CHEST CLINICAL INFORMATION: Cough. Chest pain. COMPARISON: 07/18/2022 TECHNIQUE: 2 views of the chest were obtained. FINDINGS: No significant abnormality is noted involving the heart, lungs, mediastinum, bony thorax or soft tissues. XR/XR chest 2V IMPRESSION: Unremarkable examination.
[2023-11-09 22:09] VITALS: BP 138/84; PULSE 63; RESP 14; TEMP 36.4; O2SAT 99; BMI 34.7
[2023-11-09 22:44] LABS: MANUAL DIFF FLAG NO
[2023-11-09 22:45] LABS: Basophils Absolute Auto 0.1 X10*3/uL (0.0-0.2); Basophils Percent Auto 1.8 % (0-2); Eosinophils Absolute Auto 0.6 X10*3/uL (0.0-0.4); Eosinophils Percent Auto 8.4 % (0-4); Hematocrit 41.3 % (37.0-47.0); Hemoglobin 13.6 g/dl (12.0-16.0); Imm Gran Abs Auto 0.02 X10*3/uL (0.00-0.03); Imm Gran Pct Auto 0.3 % (0.0-0.4); Lymphocytes Absolute Auto 1.9 X10*3/uL (1.2-4.9); Lymphocytes Percent Auto 27.3 % (20-40); Mean Corpuscular HGB Conc 32.9 g/dl (31.0-35.0); Mean Corpuscular Volume 85.2 fL (80.0-98.0); Mean Platelet Volume 10.2 fL (9.4-12.3); Monocytes Absolute Auto 0.4 X10*3/uL (0.1-1.2); Neutrophils Percent Auto 56.2 % (45-73); Platelet Count 380 X10*3/uL (160-400); Red Blood Count 4.85 X10*6/uL (4.20-5.50); Red Cell Distribution Width 13.8 % (11.0-16.0); White Blood Count 7.1 X10*3/uL (4.8-10.8)
[2023-11-09 22:46] LABS: Appearance Urine Clear; Color Urine Yellow; Glucose Urine UA Negative (Negative); Leukocyte Esterase Urine Negative (Negative); Nitrite Urine Negative (Negative); PH 7.5 (5.0-9.0); Urine Blood Negative (Negative); Urine Ketones Negative (Negative); Urine Protein Negative (Neg-Trace)
[2023-11-09 22:59] LABS: Alanine Aminotransferase 10 U/L (0-31); Alkaline Phosphatase 75 U/L (39-117); Anion Gap 8 (12-20); Aspartate Amino Transferase 15 U/L (5-31); Bilirubin Total 0.2 mg/dL (0.0-1.0); Blood Urea Nitrogen 13 mg/dL (9-16); Calcium 9.8 mg/dL (8.4-10.2); Carbon Dioxide 31 mmol/L (22-29); Chloride 105 mmol/L (96-108); Creatinine Clr Calc Pharmacy 110.8; Estimated Glomerular Filt Rate > 60; Glucose Random 92 mg/dL (60-115); Potassium 4.3 mmol/L (3.3-5.1); Sodium 140 mmol/L (135-145)
[2023-11-10 02:30] VITALS: BP 125/73; PULSE 57; RESP 16; O2SAT 98
--- NOTE | 2023-11-10 03:35 | ED.FEMALEGU ---
HPI - Female Genitourinary General Chief complaint: Urogenital-Female Stated complaint: R flank pain, temp 95-97 Time Seen by Provider: 11/10/23 02:35 Source: patient Mode of arrival: ambulatory History of Present Illness HPI Narrative: 48-year-old female with history of rheumatoid arthritis and currently on Humira, states that she had COVID-19 2 weeks ago and was started on Paxlovid and over the past 2 weeks she describes worsening right flank pain that has not been associated with any fever, chills, nausea, vomiting or diarrhea denies any dysuria. Patient has no history of renal colic. She also denies any recent cough or congestion. Related Data Home Medications Medication Instructions Recorded Confirmed lisinopril 20 1 tab PO DAILY 01/16/22 06/17/23 mg-hydrochlorothiazide 25 mg tablet epinephrine 0.3 mg/0.3 mL 0.03 ml IM DIRECTED 03/27/22 06/17/23 injection, auto-injector (EpiPen) fluoxetine 10 mg tablet 10 mg PO DAILY anxiety 03/27/22 06/17/23 levothyroxine 150 mcg tablet 150 mcg PO DAILY 03/27/22 06/17/23 (Synthroid) collagen,hydrolysate 500 mg-biotin 1 cap PO DAILY 04/14/22 06/17/23 800 mcg-ascorbic acid 50 mg capsule (Collagen 1500 Plus C) adalimumab 40 mg/0.4 mL 40 mg subcut Q2W 03/25/23 06/17/23 subcutaneous pen kit (Humira(CF) Pen) prednisone 5 mg tablet mg PO 06/17/23 06/17/23 Allergies Allergy/AdvReac Type Severity Reaction Status Date / Time azithromycin Allergy Unknown Hives Verified 11/09/23 22:08 erythromycin base Allergy Unknown Hives, Verified 11/09/23 22:08 [ERYTHROMYCIN BASE] redness Review of Systems Review of Systems: Pertinent positives and negatives as stated in HPI [facility] Past Medical History Source: nursing notes reviewed Medical History Uterine cancer Dysplasia of cervix, low grade (MATHEW 1) HTN (hypertension) Rheumatoid arthritis Hypothyroid Surgical History Hx of colonoscopy H/O: hysterectomy History of hysteroscopy History of placement of ear tubes Family History Family History Father Colon cancer Mother Stroke Social History Social History Household Members: Significant Other Housing: Apartment Are you a primary family day carer to a significant other at home: No Do you presently have visiting nurse or other home services: No Alcohol intake: current Alcohol intake frequency: holidays/special occasions only Patient Tobacco Use Status: Never used Tobacco Smoked in Last 30 Days: No Use of substances other than those prescribed or required for medical reasons: No Advance Directives: No Advance Directives Information Provided: No Patient : No Current occupational status: employed Gender identity: Female Physical Exam Vital Signs: Vital Signs: Last Vital Signs Temp 97.5 F 11/09/23 22:09 Pulse 57 11/10/23 02:30 Resp 16 11/10/23 02:30 BP 125/73 11/10/23 02:30 Pulse Ox 98 11/10/23 02:30 O2 Del Method Room Air 11/10/23 02:30 BMI result Body Mass Index 34.7 VITAL SIGNS: Reviewed. GENERAL: Well developed, well nourished, in no acute distress. HEAD: Normocephalic/atraumatic EYES: PERRLA, EOMI EARS: Ext canals without abnormality, TMs non-bulging and non-erythematous NOSE: Nares patent bilateral OROPHARYNX: no oral lesions noted, posterior pharynx clear and non-erythematous without noted tonsillar enlargement/erythema/exudates NECK: Supple, no adenopathy LUNGS: Normal breath sounds. No adventitious sounds or accessory muscle use. SpO2<98>; CHEST WALL: There is reproducible pain to palpation at the right mid axillary lower chest wall, there is no deformity/erythema/crepitus noted CARDIOVASCULAR: Regular rate and rhythm without noted murmurs ABDOMEN: Soft, non-tender, Cutler's negative, non-distended with bowel sounds. MUSCULOSKELETAL: No tenderness, deformities, or effusions noted on gross inspection. EXTREMITIES: No cyanosis, clubbing or edema. SKIN: Inspection of the skin reveals no rashes NEUROLOGIC: Alert and oriented x 4. Strength and sensation to light touch were grossly intact x 4. Medications Administered Discontinued Medications Generic Name Dose Route Start Last Admin Trade Name Freq PRN Reason Stop Dose Admin Acetaminophen 975 mg 11/10/23 03:13 11/10/23 03:38 Acetaminophen 325 Mg Tablet PO 11/10/23 03:14 975 mg ONCE ONE Administration Ibuprofen 400 mg 11/10/23 03:13 11/10/23 03:38 Ibuprofen 400 Mg Tablet PO 11/10/23 03:14 400 mg ONCE ONE Administration Medical Decision Making Medical Decision Making [facility] Narrative: A 48-year-old female with history and clinical presentation, DDX: Musculoskeletal, pneumonia, no clinical suspicion for cholecystitis/renal colic and given location and duration of symptoms no clinical suspicion for pyelonephritis. I reviewed all investigations and hematologic indices are negative for leukocytosis/left shift/anemia/thrombocytopenia. Chemistry disease negative for DARIA/electrolytes/liver enzyme derangements. Urinalysis negative for UTI or hematuria. Chest x-ray negative for infiltrate or venous congestion no evidence of bony abnormalities. Patient provided with combination analgesics to include lidocaine patch and on re-evaluation has had some relief from her discomfort. She is otherwise discharged home. Differential Diagnosis Differential Diagnoses: The differential diagnosis associated with the presentation includes Please see the discussion above Admission/Observation Consideration of admission/observation: Escalation of care including admission/observation considered Please see the discussion above Lab Data [facility] Lab Attestation statement: I reviewed the patient's lab results. Please see the discussion above 11/09/23 22:36 11/09/23 22:36 Labs: Lab Results 11/09/23 Range/Units 22:36 WBC 7.1 (4.8-10.8) X10*3/uL RBC 4.85 (4.20-5.50) X10*6/uL Hgb 13.6 (12.0-16.0) g/dl Hct 41.3 (37.0-47.0) % MCV 85.2 (80.0-98.0) fL MCH 28.0 (27.0-33.0) pg MCHC 32.9 (31.0-35.0) g/dl RDW 13.8 (11.0-16.0) % Plt Count 380 D (160-400) X10*3/uL MPV 10.2 (9.4-12.3) fL Immature Gran % (Auto) 0.3 (0.0-0.4) % Neut % (Auto) 56.2 (45-73) % Lymph % (Auto) 27.3 (20-40) % Heard % (Auto) 6.0 (2-11) % Eos % (Auto) 8.4 H (0-4) % Baso % (Auto) 1.8 (0-2) % Lymph # (Auto) 1.9 (1.2-4.9) X10*3/uL Heard # (Auto) 0.4 (0.1-1.2) X10*3/uL Eos # (Auto) 0.6 H (0.0-0.4) X10*3/uL Baso # (Auto) 0.1 (0.0-0.2) X10*3/uL Abs Immat Gran (auto) 0.02 (0.00-0.03) X10*3/uL Absolute Neuts (auto) 4.0 (2.0-8.3) x10*3/uL Absolute Nucleated RBC 0.000 (0.0-0.012) X10*3/uL Nucleated RBC % (auto) 0.0 (0.0-0.2) /100WBC Sodium 140 (135-145) mmol/L Potassium 4.3 (3.3-5.1) mmol/L Chloride 105 (96-108) mmol/L Carbon Dioxide 31 H (22-29) mmol/L Anion Gap 8 L (12-20) BUN 13 (9-16) mg/dL Creatinine 0.73 (0.5-1.4) mg/dL Estim Creat Clear Calc 110.8 Estimated GFR > 60 Random Glucose 92 (60-115) mg/dL Calcium 9.8 (8.4-10.2) mg/dL Total Bilirubin 0.2 (0.0-1.0) mg/dL AST 15 (5-31) U/L ALT 10 (0-31) U/L Alkaline Phosphatase 75 (39-117) U/L Total Protein 9.0 H (6.5-8.0) g/dL Albumin 4.0 (3.5-5.0) g/dL Urine Color Yellow Urine Appearance Clear Urine pH 7.5 (5.0-9.0) Ur Specific [place] 1.010 (1.005-1.025) Urine Protein Negative (Neg-Trace) mg/dL Urine Glucose (UA) Negative (Negative) mg/dL Urine Ketones Negative (Negative) mg/dL Urine Blood Negative (Negative) Urine Nitrite Negative (Negative) Ur Leukocyte Esterase Negative (Negative) Radiology Impression Discussion of test interpretation with radiology: I have reviewed the radiologist's reading. Radiologist Impression: Please see the discussion above External Record Review External record reviewed: Outpatient record and Prior outpatient labs Chronic Conditions Patient?s care impacted by: Other Rheumatoid arthritis Critical Care Time Critical Care Time Critical Care Time: Yes Total Critical Care Time: 30 Attestation: I personally attest to this time spent taking care of the patient. Discharge Plan Discharge Clinical Impression: Acute chest wall pain, Musculoskeletal pain Patient Disposition: Home, Self-Care Instructions: Chest Wall Pain (ED), Musculoskeletal Pain (ED) Additional Instructions: 1. Resume all home medications as prescribed. 2. Tylenol 1000 mg, orally, every 6 hours as needed for pain control. Do not exceed 4000 mg within 24 hours. 3. Ibuprofen 400 mg, orally with milk or food, every 6 hours as needed pain control. 4. Recommend aybq-fpb-humayiw lidocaine patch apply to area of maximal tenderness as directed on the outside packaging. 5. Please follow-up with primary care doctor. Return to the ER for any worsening symptoms. Prescriptions: No Action Collagen 1500 Plus C 500 mg-800 mcg- 50 mg Capsule 1 cap PO DAILY prednisone 5 mg tablet PO lisinopril-hydrochlorothiazide 20-25 mg tablet 1 tab PO DAILY levothyroxine [Synthroid] 150 mcg tablet 150 mcg PO DAILY epinephrine [EpiPen] 0.3 mg/0.3 mL auto-injector 0.03 ml IM DIRECTED fluoxetine 10 mg tablet 10 mg PO DAILY Humira(CF) Pen 40 mg/0.4 mL pen injector kit 40 mg subcut Q2W Referrals: Faith Peters MD [Primary Care Provider] -
[2023-11-10] MEDS: Ibuprofen 400 MG TABLET PO (03:38)
[2023-11-10] MEDS: Acetaminophen 325 MG TABLET 975 MG PO (03:38)
--- NOTE | 2023-11-10 03:41 | PC.NURSE ---
pt from home a&ox4, respirations even and unlabored. pt reporting onset of right flank pain 2 weeks ago that has increasingly got worse. pt denies any urinary symptoms including blood and pain with urination. pt reports she has had increased coughing and reports it may have caused the pain. pt medicated per mar, pt tolerated well with water.
[2023-11-10] MEDS: Lidocaine 4 % Patch ADH..PATCH 1 PATCH TRANSDERMA (04:14)
== END 2023-11-10 04:17 | disposition home or self-care (01) ==
PROVIDERS: Emergency Provider Student in an Organized Health Care Education/Training Program; PCP Student in an Organized Health Care Education/Training Program
DX: R07.89 Other chest pain (principal); R05.9 Cough, unspecified; M79.10 Myalgia, unspecified site; Z79.899 Other long term (current) drug therapy
CPT/HCPCS: 36415; 71046; 80053; 81003; 85025; 99283; 99284

== ENCOUNTER 2024-07-11 10:41 | Outpatient (REF) | payer OTHER, SELFPAY ==
[2024-07-11 14:51] LABS: TSH reflex Free T4 3.21 uIU/mL (0.32-4.0)
== END 2024-07-11 10:42 | disposition home or self-care (01) ==
LOC: HO.CHCLDS 10:41
PROVIDERS: Visit Provider Student in an Organized Health Care Education/Training Program
DX: E03.9 Hypothyroidism, unspecified (principal)
CPT/HCPCS: 36415; 84443

== ENCOUNTER 2024-09-05 15:24 | Outpatient (AMB) | payer OTHER, SELFPAY ==
[2024-09-05 15:29] VITALS: BP 130/64; PULSE 99; BMI 34.5
--- NOTE | 2024-09-05 15:29 | A.OFFVIS_ITS ---
Vital Signs 09/05/24 15:29 Height 5 ft 6 in Weight 213 lb 13.574 oz BMI 34.5 BP 130/64 Blood Pressure Location Lt brachial Position Sitting Pulse 99 Pulse Source Monitor Intake Visit Reasons: 1 year follow up Intake Note: 1 yr f/up Contract Management Specialist Required: No Accompanied by: Self / Same As Patient Allergies azithromycin Allergy (Unknown, Verified 06/23/24 15:46) Hives erythromycin base [ERYTHROMYCIN BASE] Allergy (Unknown, Verified 06/23/24 15:46) Hives, redness Medication List - Last Reconciled 09/05/24 by Bladimir Appiah MD adalimumab-adaz (Hyrimoz Pen) 40 mg subcut QWEEK rcrrofjx-vxieij-lzhzhpzq acid 500 mg-800 mcg- 50 mg (Collagen 1500 Plus C) 1 cap PO DAILY epinephrine (EpiPen) 0.03 mL IM DIRECTED fluoxetine 10 mg PO DAILY levothyroxine (Synthroid) 150 mcg PO DAILY lisinopril-hydrochlorothiazide 20-25 mg 1 tab PO DAILY HPI Comments Details: Pleasant 48-year-old female who is here for perioperative cardiovascular risk assessment. She has been experiencing menorrhagia and developed iron deficiency anemia. She has been experiencing palpitations, burning chest pains, fatigue and shortness of breath. She has been on iron supplements which has improved her symptoms. She had iron saturation of 7% in January 2022. She has been to the emergency department with burning chest discomfort and has been ruled out. Her EKG has not shown any dynamic changes. Her symptoms have improved with iron supplementation at this stage. She has no history of hypertension and has been on medications for that and with good blood pressure control. She is here because she needs potentially removal of fibroids. She has some palpitations off and on and the happening every other day. She does feels that her heart is skipping a beat. Her daughter has atrial fibrillation. 06/17/23: She returns for follow-up. She had echocardiography in May 2022 which showed normal biventricular function with mild ascending aorta dilatation at 3.3 cm. She also had Holter monitor which showed rare supraventricular ectopy. She is complaining of rare palpitations. They also last for few seconds. She is not bothered by them. She had rheumatoid arthritis flare and has been on prednisone. She is saying that sometimes she gets palpitations after taking fluoxetine. I have explained the echocardiography and Holter result to her. 09/05/24: She is here for f/u. She has lipid panel and her ldl is 136. she has been trying to eat healthier and is seeing a dietecian. We discussed about starting statins for elevated ldl. She wishes to exercise and change diet. [facility] Medical History (Updated 09/05/24 @ 15:57 by Bladimir Appiah MD) Uterine cancer Dysplasia of cervix, low grade (MATHEW 1) HTN (hypertension) Rheumatoid arthritis Hypothyroid Surgical History Hx of colonoscopy H/O: hysterectomy History of hysteroscopy History of placement of ear tubes Family History Father Colon cancer Mother Stroke Social History Household Members: Significant Other Housing: Apartment Are you a primary hospice patient care secretary to a significant other at home: No Do you presently have visiting nurse or other home services: No Alcohol intake: current Alcohol intake frequency: holidays/special occasions only Patient Tobacco Use Status: Never used Tobacco Current occupational status: employed Gender identity: Female Female Reproductive History Menstrual Age of Menarche: 11 Review of Systems Const Denies chills, Denies fatigue, Denies fever(s), Denies frequent falls, Denies weakness, Denies weight gain and Denies weight loss ENT Denies dizziness Card Denies chest pain, Denies leg edema, Denies lightheadedness, Denies palpitations, Denies dyspnea and Denies dyspnea on exertion Resp Denies cough, Denies dyspnea and Denies dyspnea on exertion GI Denies hematochezia Musc Denies abnormal gait, Denies muscle weakness, Denies numbness, Denies radiating pain into limb and Denies tingling Neuro Denies abnormal gait, Denies dizziness, Denies frequent falls, Denies numbness, Denies tingling and Denies weakness Endo Denies fatigue and Denies palpitations Physical Exam Vital Signs: Last Vital Signs Pulse 99 09/05/24 15:29 BP 130/64 09/05/24 15:29 BMI result Body Mass Index 34.5 GENERAL APPEARANCE: in no acute distress, pleasant. NECK: no carotid bruit, no jugular venous distention. SKIN: no suspicious lesions, warm and dry. HEART: no murmurs, regular rate and rhythm. LUNGS: clear to auscultation bilaterally. ABDOMEN: soft, nontender. EXTREMITIES: no edema. PERIPHERAL PULSES: equal. NEUROLOGIC: No gross deficits, AAO X 3 Office Procedures EKG Details: Sinus rhythm 99 beats per minute, normal axis, normal ECG, QTC 464 milliseconds. [id number], Complete Assessment & Plan Assessment & Plan (1) Palpitations: Code(s): R00.2 - Palpitations Category: Medical (2) Hyperlipidemia: Code(s): E78.5 - Hyperlipidemia, unspecified Category: Medical Plan 49 female here for f/u. BP is well controlled. She has elevated lipids and has RA. I have advised her to statins. She wishes to try diet. After discussion we have decided to do a calcium score. If elevated then would start aggressive treatment with statins. f/u in 3 months. Orders: Orders CT Coronary Calcium Score 09/05/24 E78.5 - Hyperlipidemia, unspecified Lipid Panel 09/05/24 E78.5 - Hyperlipidemia, unspecified Coding Level of Care Code Est Pt Level 4 (39654) Diagnoses Palpitations R00.2 Hyperlipidemia E78.5 CPT Codes EKG - CPT: 00035-Brxkkwyjuwkcrzbeb, Complete ([id number])
== END 2024-09-05 15:59 | disposition home or self-care (01) ==
PROVIDERS: PCP Student in an Organized Health Care Education/Training Program; Visit Provider Internal Medicine Cardiovascular Disease
DX: R00.2 Palpitations (principal)
CPT/HCPCS: 93010; 99214

== ENCOUNTER → 2024-09-05 15:24 | Outpatient (BNVA) | payer OTHER, SELFPAY | PROVIDERS: PCP Student in an Organized Health Care Education/Training Program; Visit Provider Internal Medicine Cardiovascular Disease | DX: R00.2 Palpitations (principal); E78.5 Hyperlipidemia, unspecified | CPT/HCPCS: 93005 ==

== ENCOUNTER 2024-10-22 09:56 | Outpatient (REF) | payer OTHER, SELFPAY ==
[2024-10-22 11:47] LABS: Cholesterol 182 mg/dL (<200); HDL Cholesterol 50 mg/dL (>40); LDL Cholesterol Calculated 103 mg/dL (<100); Triglycerides 148 mg/dL (<150)
== END 2024-10-22 09:57 | disposition home or self-care (01) ==
LOC: HO.HMGCLDS 09:56
PROVIDERS: PCP Student in an Organized Health Care Education/Training Program; Visit Provider Internal Medicine Cardiovascular Disease
DX: E78.5 Hyperlipidemia, unspecified (principal)
CPT/HCPCS: 36415; 80061

== ENCOUNTER 2025-01-11 09:29 | Outpatient (AMB) | payer OTHER, SELFPAY ==
--- NOTE | 2025-01-11 09:30 | MHC.OFFVIS ---
Vital Signs 01/11/25 09:32 Height 5 ft 6 in Weight 211 lb 3.245 oz BMI 34.1 BP 130/60 Blood Pressure Location Lt brachial Position Sitting Pulse 74 Pulse Source Pulse Oximeter Intake Visit Reasons: 4m follow up Intake Note: 4 mth f/up Monotype Mechanic Required: No Accompanied by: Self / Same As Patient Allergies azithromycin Allergy (Unknown, Verified 06/23/24 15:46) Hives erythromycin base [ERYTHROMYCIN BASE] Allergy (Unknown, Verified 06/23/24 15:46) Hives, redness Medication List - Last Reconciled 01/11/25 by Bladimir Appiah MD adalimumab-adaz (Hyrimoz Pen) 40 mg subcut QWEEK sixqgrgo-cnxvtk-vwsnilzf acid 500 mg-800 mcg- 50 mg (Collagen 1500 Plus C) 1 cap PO DAILY epinephrine (EpiPen) 0.03 mL IM DIRECTED fluoxetine 10 mg PO DAILY levothyroxine (Synthroid) 150 mcg PO DAILY lisinopril-hydrochlorothiazide 20-25 mg 1 tab PO DAILY HPI Comments Details: Pleasant 49-year-old female who is here for perioperative cardiovascular risk assessment. She has been experiencing menorrhagia and developed iron deficiency anemia. She has been experiencing palpitations, burning chest pains, fatigue and shortness of breath. She has been on iron supplements which has improved her symptoms. She had iron saturation of 7% in January 2022. She has been to the emergency department with burning chest discomfort and has been ruled out. Her EKG has not shown any dynamic changes. Her symptoms have improved with iron supplementation at this stage. She has no history of hypertension and has been on medications for that and with good blood pressure control. She is here because she needs potentially removal of fibroids. She has some palpitations off and on and the happening every other day. She does feels that her heart is skipping a beat. Her daughter has atrial fibrillation. 06/17/23: She returns for follow-up. She had echocardiography in May 2022 which showed normal biventricular function with mild ascending aorta dilatation at 3.3 cm. She also had Holter monitor which showed rare supraventricular ectopy. She is complaining of rare palpitations. They also last for few seconds. She is not bothered by them. She had rheumatoid arthritis flare and has been on prednisone. She is saying that sometimes she gets palpitations after taking fluoxetine. I have explained the echocardiography and Holter result to her. 09/05/24: She is here for f/u. She has lipid panel and her ldl is 136. she has been trying to eat healthier and is seeing a dietecian. We discussed about starting statins for elevated ldl. She wishes to exercise and change diet. 01/11/2025: She is here for follow-up. She underwent coronary calcium score which was 0. She continues to have atypical sharp chest pains which last for 1-2 seconds. Blood pressure control is good. Overall she has been doing well. [facility] Medical History (Updated 09/05/24 @ 15:57 by Bladimir Appiah MD) Uterine cancer Dysplasia of cervix, low grade (MATHEW 1) HTN (hypertension) Rheumatoid arthritis Hypothyroid Surgical History Hx of colonoscopy H/O: hysterectomy History of hysteroscopy History of placement of ear tubes Family History Father Colon cancer Mother Stroke Social History Household Members: Significant Other Housing: Apartment Are you a primary childcare aide to a significant other at home: No Do you presently have visiting nurse or other home services: No Alcohol intake: current Alcohol intake frequency: holidays/special occasions only Patient Tobacco Use Status: Never used Tobacco Current occupational status: employed Gender identity: Female Female Reproductive History Menstrual Age of Menarche: 11 Review of Systems Const Denies chills, Denies fatigue, Denies fever(s), Denies frequent falls, Denies weakness, Denies weight gain and Denies weight loss ENT Denies dizziness Card Denies chest pain, Denies leg edema, Denies lightheadedness, Denies palpitations, Denies dyspnea and Denies dyspnea on exertion Resp Denies cough, Denies dyspnea and Denies dyspnea on exertion GI Denies hematochezia Musc Denies abnormal gait, Denies muscle weakness, Denies numbness, Denies radiating pain into limb and Denies tingling Neuro Denies abnormal gait, Denies dizziness, Denies frequent falls, Denies numbness, Denies tingling and Denies weakness Endo Denies fatigue and Denies palpitations Physical Exam Vital Signs: Last Vital Signs Pulse 74 01/11/25 09:32 BP 130/60 01/11/25 09:32 BMI result Body Mass Index 34.1 GENERAL APPEARANCE: in no acute distress, pleasant. NECK: no carotid bruit, no jugular venous distention. SKIN: no suspicious lesions, warm and dry. HEART: no murmurs, regular rate and rhythm. LUNGS: clear to auscultation bilaterally. ABDOMEN: soft, nontender. EXTREMITIES: no edema. PERIPHERAL PULSES: equal. NEUROLOGIC: No gross deficits, AAO X 3 Assessment & Plan Assessment & Plan (1) HTN (hypertension): Code(s): I10 - Essential (primary) hypertension Category: Medical (2) Hyperlipidemia: Code(s): E78.5 - Hyperlipidemia, unspecified Category: Medical Plan Pleasant 49 year female who is here for follow-up. She has background history of rheumatoid arthritis, hypertension and hyperlipidemia. Blood pressure control is good. Her coronary calcium score is 0. Last LDL cholesterol was 103. I have advised her to diet and exercise and we will repeat lipid panel 3 months. Noncardiac chest pains currently which I have reassured her about. She will follow up with us in few months. Thank you for allowing me to participate in the care of your patient. Please feel free to contact me if you have any questions. Orders: Orders Lipid Panel Today E78.5 - Hyperlipidemia, unspecified Coding Level of Care Code Est Pt Level 4 (85852) Diagnoses HTN (hypertension) I10 Hyperlipidemia E78.5
[2025-01-11 09:32] VITALS: BP 130/60; PULSE 74; BMI 34.1
--- OUTSIDE RECORDS SUMMARY | 2025-01-11 10:11 | XMS_ITS | Clinical Summary ---
Author Organization [employer] Address [address] [facility] 7[address] [place] [address] Care Team Providers Care Hand Candy Cutter Name Role Phone Faith Peters MD Primary Care Provider [phone] Allergies Active Allergy Reactions Criticality Noted Date Comments Amoxicillin Hives 02/18/2012 Azithromycin Hives 12/22/2022 Erythromycin Base 12/22/2022 Other Reaction(s): Hives, redness Medications FLUoxetine (PROzac) 10 MG tablet TAKE 1 AND 1/2 TABLETS BY MOUTH EVERY MORNING WITH A MEAL 2 Active levothyroxine (Synthroid, Levoxyl) 150 MCG tabletIndication s:Hypothyroidism , unspecified type Take 1 tablet (150 mcg) by mouth Once per day. 270 tablet 3 4 Active lisinopril-hydro CHLOROthiazide 20-25 MG tabletIndication s:Primary hypertension Take 1 tablet by mouth Once per day. 90 tablet 3 4 Active adalimumab (Humira, 2 Syringe,) 40 MG/0.8ML Prefilled Syringe Kit prefilled syringe Inject 40 mg under the skin. 3 Active Hyrimoz 40 MG/0.4ML solution auto-injector 0 Refills, Maintenance, 05/09/24 8:24:00 EDT, Partial fill upon patient request if the prescription is for a schedule II opioid drug. 4 Active atomoxetine (Strattera) 25 MG capsule 4 Active Cholecalciferol (Vitamin D3) 50 MCG (1999 UT) chewable tablet 3 Active estradiol (Estrace) 0.1 MG/GM vaginal cream Insert 2 g into the vagina. 3 Active LORazepam (Ativan) 0.5 MG tablet 3 Active chlorhexidine (Peridex) 0.12 % solutionIndicati ons:History of tooth extraction, unspecified edentulism class Swish 15 mL morning and night for 1 minute. Spit, do not swallow. Do not eat or drink for 30 minutes following use. 473 mL 4 Active Active Problems Problem Noted Date Diagnosed Date Abnormal uterine bleeding (AUB) 06/21/2024 Complex ovarian cyst 06/21/2024 Diverticulosis of colon 06/21/2024 Dysplasia of cervix, low grade (MATHEW 1) Endometrial adenocarcinoma 06/21/2024 Endometrial polyp 06/21/2024 Family history of colon cancer 06/21/2024 Hemorrhoids 06/21/2024 History of menorrhagia 06/21/2024 Iron deficiency anemia 06/21/2024 Class 1 obesity 06/21/2024 Palpitations 06/21/2024 Encounter for screening colonoscopy 06/21/2024 Sessile serrated polyp of colon 06/21/2024 Surgical menopause on hormone replacement therap y 06/21/2024 Umbilical hernia 06/21/2024 Fibroids 06/21/2024 Uterine myoma 06/21/2024 Hypertension 06/21/2024 Hypothyroid 06/21/2024 H/O total hysterectomy with removal of both tubes and ovaries 08/07/2022 Endometrial cancer 07/15/2022 Optic disc edema 01/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 High blood pressure 10/20/2012 Obstructive sleep apnea syndrome 10/20/2012 Obesity 10/20/2012 Attention deficit hyperactiv ity disorder, 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 Rheumatoid arthritis 08/31/1999 Hypothyroidism 08/31/1986 Resolved Problems Problem Noted Date Diagnosed Date Resolved Date Acute chest wall pain 06/21/20242023 Chest pain 06/21/2024 06/21/2024 Musculoskeletal pain 06/21/2024 024 Preop cardiovascular exam 06/21/2024 Encounters Date Type Department Care Team Description 01/10/2025 Patient Outreach [facility] [address] [place] [phone] Faith Peters MD Care Coordination (CHW outreach SDOH pest control - LVM ) 01/09/2025 Patient Outreach [facility] [address] [place] [address] Faith Peters MD Pre-visit Planning (SDOH screening positive and Tobacco screening negative) 12/22/2024 Telephone [facility] [address] [place], [place] [phone] Faith Peters MD 10/22/2024 Orders Only GENERIC EXTERNAL DATA DEPARTMENT Provider, Generic External Data from Last 3 Months Immunizations Immunization Administration Dates Next Due INFLUENZA INJECTABLE QUADRIV ALANT CCIIV4 MDCK Multi-dose vial 07/03/2021 Influenza injectable quadriv alent IIV4 with preservative 06/23/2017,05/17/2015 Influenza injectable quadriv alent preservative free 09/19/2022 Pfizer Covid-19 Vaccine 12+ 10/10/2021,,01/24/2021 Pfizer Covid-19 Vaccine 12+ kelsey-sucrose (James Cap) 10/10/2021 Tdap 06/21/2024,07/14/2012 Social History Tobacco Use Types Packs/Day Years Used Date Smoking Tobacco: Never Passive Smoke Exposure: Never Smokeless Tobacco: Never Tobacco Cessation:Counseling Given: Not Answered Alcohol Use Standard Drinks/Week Comments Yes 1 (1 standard drink = 0.6 oz pur e alcohol) Housing Stability Answer Date Recorded What is your housing situation today? I have adamalizy jennings 01/09/[address] you li ve. Do you have problems with any of the following? Mold 01/09/2025 Food Insecurity Answer Date Recorded Within the past 12 months, y ou worried that your food would run out before you got money to buy more: Never True 06/21/2024 Within the past 12 months,th e food you bought just didn't last and you didn't have enough money to get more: Never True Transportation Answer Date Recorded In the past 12 months, has l ack of transportation kept you from medical appts, meetings, work or from getting things needed for daily living? No 06/21/2024 Utilities Answer Date Recorded In the past 12 months, has t he electric, gas, oil or water company threatened to shut off services in your home? No 06/21/2024 Depression Answer Date Recorded Patient Health Questionnaire-2 Score 2 09/19/2022 Internet Access Answer Date Recorded Internet Access Q1 Yes 06/21/2024 Internet Access Q2 Not on file 06/21/2024 Comments No Sex and Gender Information Value Date Recorded Sex Assigned at Female 06/30/2022 10:14 AM EDT Legal Sex Female 10:14 AM EDT Gender Identity Female 06/30/2022 10:14 AM EDT Sexual Orientation Straight 06/30/2022 10 :14 AM EDT Last Filed Vital Signs Vital Sign Reading Time Taken Comments Blood Pressure 130/62 10/12/2024 2:38 PM EST Pulse 65 07/11/2024 8:06 AM EST Temperature 36.8 ??C (98.2 ??F) 06/21/2024 9:46 AM ED T Respiratory Rate 14 06/21/2024 9:46 AM EDT Oxygen Saturation 98% 06/21/2024 9:46 AM EDT Inhaled Oxygen Concentration - - Weight 100 kg (220 lb 6.4 oz) 10/13/2024 4:22 PM EST Height 167.6 cm (5' 6 ) 10/13/2024 4:22 PM EST Body Mass Index 35.57 10/13/2024 4:22 PM EST Plan of Treatment Upcoming Encounters Date Type Department Care Team (Late st Contact Info) Description 01/18/2025 8:30 AM EDT Office Visit [facility] [address] [place] [address] Faith Peters MD [address] [place] [address] Health Maintenance Due Date Last Done Comments CT Colonography 1975 Colonoscopy 1975 Colorectal Cancer Screening 1975 FIT DNA/Cologuard 1975 FIT 1975 FOBT 1975 Sigmoidoscopy 1975 Alcohol/Substance Use Screening 1987 Family Planning (PISQ) 1990 Hepatitis B Vaccines (1 of 3 - 19+ 3-dose series) 1994 Depression Screening 09/19/2023 09/19/2022, 09/19/19 23 Mammogram 04/22/2024 04/22/2023, 06/0 03/2021, 08/08/2019, Additional history exists Dental Oral Exam 01/09/2025 07/11/2024 Dental Prophylaxis 01/10/2025 10/12/2024, 1 09/10/2023, 08/28/2022 Zoster Vaccines (1 of 2) 2025 COVID-19 Vaccine ( season) 2025 10/10/2021, 10/10/2021, 02/14/2021, Additional history exists Postponed from 05/01/2024 (Patient Refused) Dental X-Ray: Bitewings 07/12/2025 07/11/2024 Tobacco Screening 10/12/2025 10/12/2024 SDOH Screening 01/09/2026 01/09/2025 Dental X-Ray: Full Mouth 08/18/2027 08/17/2024 Lipid Panel 10/22/2029 10/22/2024, 06/01, 09/23/2022, Additional history exists DTaP/Tdap/Td Vaccines (3 - Td or Tdap) 06/21/2034 06/21/2024, 07/14/2012 RSV Patients and Patients Aged 60 years or older (1 - 1-dose 75+ series) 2050 HIV Screening Completed 07/05/2020, 10/31/2019 Hepatitis C Screening Completed 07/05/2020 Pap Smear Discontinued 10/15/2021, 09/20/2020 Cervical Cancer Screening Discontinued HPV/Cotest Discontinued 03/27/2022, 03/01, 10/15/2021, Additional history exists Influenza Vaccine Completed 07/26/2024, , 07/03/2021, Additional history exists HIB Vaccines Aged Out No longer eligi ble based on patient's age to complete this topic HPV Vaccines Aged Out No longer eligi ble based on patient's age to complete this topic Hepatitis A Vaccines Aged Out No long er eligible based on patient's age to complete this topic IPV Vaccines Aged Out No longer eligi ble based on patient's age to complete this topic Meningococcal Vaccine Aged Out No gail gm eligible based on patient's age to complete this topic Pneumococcal Vaccine: Pediatrics (0 to 5 Years) and At-Risk Patients (6 to 49) Years) Aged Out No longer eligible based on patient's age to complete this topic RSV under 20 months Aged Out No longe r eligible based on patient's age to complete this topic Rotavirus Vaccines Aged Out No longer eligible based on patient's age to complete this topic Procedures Procedure Name Priority Date/Time Associated Diagnosis Comments LIPID PANEL, STANDARD Routine 10/22/2024 10:00 AM EST PROPHYLAXIS - ADULT Routine 10/12/2024 2 :30 PM EST Gingivitis PANORAMIC RADIOGRAPHIC IMAGE Routine 08/17/2024 9:30 AM EST Malocclusion Dental caries BITEWINGS - 4 RADIOGRAPHIC IMAGES Routine 07/11/2024 8:00 AM EST Dental caries Gingivitis PERIODIC ORAL EVALUATION - ESTABLISHED PATIENT Routine 07/11/2024 8:00 AM EST Dental caries Gingivitis BI MAMMOGRAM SCREENING TOMOSYNTHESIS BILATERAL Routine 04/22/2023 8:49 AM EDT ZZZ HISTORICAL HPV E6/E7 RFLX GREGORIA 16 18/45 Routine 03/27/2022 12:12 PM EDT THINPREP IMAGING PAP AND HPV MRNA E6/E7, WITH CT/NG, TRICHOMONAS Routine 10/15/2021 11:08 AM EST ZZZ HISTORICAL HEPATITIS C AB W/REFL TO HCV RNA, QN, PCR Routine 07/05/2020 4:07 PM EST HIV 1/2 ANTIGEN/ANTIBODY, FOURTH GENERATION W/RFL Routine 07/05/2020 4:07 PM EST from Last 3 Months or Most Recently Relevant to Health Maintenance Results * (ABNORMAL) Lipid Panel, Standard (10/22/2024 10:00 AM EST) Triglycerides 148 <150 mg/dL [facility] Comment:Desirable Triglyceri de: less than 150 mg/dLBorderline High Triglyceride 150-199 mg/dLHigh Triglyceride: 200-499 mg/dLVery High Triglyceride: greater than or equal to 5OO mg/dL Cholesterol 182 <200 mg/dL [facility] Comment:Desirable Cholestero l: less than 200 mg/dLBorderline High Cholesterol: 200-239 mg/dLHigh Cholesterol: greater than 239 mg/dL LDL Cholesterol Calculated 103(H) <100 mg/dL [facility] Comment:Desirable LDL: less than 100 mg/dLNear Optimal/Above Optimal LDL: 110- 129 mg/dLBorderline High LDL: 130-159 mg/dLHigh LDL: 160-189 mg/dLVery High LDL: greater than or equal to 190 mg/dL HDL Cholesterol 50 >40 mg/dL [facility] Comment:Desirable HDL: great er than 40 mg/dL Note: This HDL assay may give artificially low results in patients with liver disease. 10/22/2024 10:0 0 AM EST 10/22/2024 11:10 AM EST us Generic External Data Provider LAB BLOOD ORDERAB LES Final Result Performing Organization Address City/State[facility] Co de Phone Number [facility] [address] [place] [phone] * BI Mammogram Screening Tomosynthesis Bilateral (04/22/2023 8:49 AM EDT) Anatomical Region Laterality Modality Breast Bilateral Mammography 04/22/2023 8:49 AM EDT Narrative 05/08/2023 10:49 AM EDT ? [facility] [place] ? [address] ?[place] [address] ? Mammography Report ? Signed ? Patient: Bigas,Ibeliz ?MR#: [id number] ? : 1975 ?Acct:[id number] ? Age/Sex: 48 / F ?ADM Date: 08/23/23 ? Loc: HO.MAMMO ? Attending Dr: Faith Peters MD ? Ordering Physician: Faith Peters MD ?Results: 2Benign ?? Findings ? Date of Service: 04/22/23 ?Follow Up: 1 Year From Orig ?? inal Mammogram ? Procedure(s): MM tomosynthesis screening BI ?? Accession Number(s): [id number] ? cc: Faith Peters MD ? EXAMINATION: ?? MM SCREENING DIGITAL BREAST TOMOSYNTHESIS, BILATERAL ? CLINICAL INFORMATION: ? Screening. Asymptomatic. ? COMPARISON: ?? Mammography: 04/15/2022, and studies dating back to 2011. ? TECHNIQUE: ?? Digital breast tomosynthesis is performed in both the craniocaudal and ?? mediolateral oblique views along with computer-aided detection (CAD). ?? Synthesized 2D images are generated from the tomosynthesis. ? FINDINGS: ?? The breasts are heterogeneously dense, which may obscure small masses ?? (ACR BI-RADS breast composition Category c). ? There are no suspicious masses, suspicious grouped calcifications, or ?? areas of architectural distortion. The parenchymal pattern is stable ?? from prior exams. ??There are no skin changes. Stable low-lying left ?? axillary lymph node. ? MM/MM tomosynthesis screening BI ?? IMPRESSION: ?? No mammographic evidence of malignancy. Stable benign findings. ? ASSESSMENT: ? BI-RADS BI-RADS 2 - Benign Findings ? RECOMMENDATION: ?? Routine annual mammography screening. ? 1 year F/U ? This examination should not preclude the clinical evaluation of a ?? suspicious palpable abnormality. ? This patient's information was entered into a reminder system with a ?? target due date for their next mammogram. ? Dictated By: ?Jose Martinez MD ? Signed By: ?<Electronically signed by Jose Martinez MD in OV> ?05/08/23 1045 ? DD/ 0849 ? TD/TT: ? Machine Folder: ? Procedure Note Donotuseinterpreter, Image - 05/11/2023 [facility] [address] [place] [address] Mammography Report Signed Patient: Hilda BanerjeeMR#: [id number] : 1975Acct:[id number] Age/Sex: 48 / FADM Date: 04/22/23 Loc: HO.MAMMO Attending Dr: Faith Peters MD Ordering Physician: Faith Peters MDResults: 2Benign Findings Date of Service: 04/22/23Follow Up: 1 Year From Orig inal Mammogram Procedure(s): MM tomosynthesis screening BI Accession Number(s): [id number] cc: Faith Peters MD EXAMINATION: MM SCREENING DIGITAL BREAST TOMOSYNTHESIS, BILATERAL CLINICAL INFORMATION: Screening. Asymptomatic. COMPARISON: Mammography: 04/15/2022, and studies dating back to 2011. TECHNIQUE: Digital breast tomosynthesis is performed in both the craniocaudal and mediolateral oblique views along with computer-aided detection (CAD). Synthesized 2D images are generated from the tomosynthesis. FINDINGS: The breasts are heterogeneously dense, which may obscure small masses (ACR BI-RADS breast composition Category c). There are no suspicious masses, suspicious grouped calcifications, or areas of architectural distortion. The parenchymal pattern is stable from prior exams. There are no skin changes. Stable low-lying left axillary lymph node. MM/MM tomosynthesis screening BI IMPRESSION: No mammographic evidence of malignancy. Stable benign findings. ASSESSMENT: BI-RADS BI-RADS 2 - Benign Findings RECOMMENDATION: Routine annual mammography screening. 1 year F/U This examination should not preclude the clinical evaluation of a suspicious palpable abnormality. This patient's information was entered into a reminder system with a target due date for their next mammogram. Dictated By: Jose Martinez MD Signed By: <Electronically signed by Jose Martinez MD in OV> 05/08/23 1045 DD/ 0849 TD/TT: Machine Folder: Faith Peters MD IMG BI PROCEDURES Edited Result - Final * HPV E6/E7 RFLX GREGORIA 16 18/45 (03/27/2022 12:12 PM EDT) HPV 16 RNA [facility]NP [facility] HPV 18/45 RNA [facility] HPV E6 E7 ADD [facility]NP [facility] HPV mRNA E6/E7 rflx Not Detected Not Detected [facility] Comment: Methodology: Scalloper-Mediated Amplification This assay detects E6/E7 viral messenger RNA (mRNA) from 14 high-risk HPV types (16,18,31,33,35,39,45,51,52,56,58,59,66,68). Cervical sources are required for HPV testing. If a vaginal source from a patient who has had a total hysterectomy with removal of cervix was submitted, please contact the testing laboratory for alternative testing options. For additional information, please refer to http://education.[employer]/faq/XJN236i1 (This link if provided for information/ educational purposes only.) THIS TEST WAS PERFORMED AT: [facility] [address] [place] [address],[address] [place], [place] ??[phone] STEFFANIE MCDOWELL MD 03/27/2022 12:1 2 PM EDT Roberto Hinojosa MD HISTORICAL/NON ORDERABLE LABS Fi nal Result [facility] [address] * THINPREP TIS PAP AND HPV mRNA E6/E7, CT/NG, TRICH (10/15/2021 11:08 AM EST) Chlamydia trachomatis RNA, TMA, Urogenital NOT DETECTED NOT DETECTED [facility] Clinical Information: None given [facility] COMMENT SEE COMMENT [facility] Comment: The analytical performance characteristics of this assay, when used to test SurePath(TM) specimens have been determined by [employer]. The modifications have not been cleared or approved by the FDA. This assay has been validated pursuant to the CLIA regulations and is used for clinical purposes. ?? For additional information, please refer to https://[employer]/faq/JXL307 (This link is being provided for information/ educational purposes only.) ?? COMMENT SEE COMMENT [facility] Comment: EXPLANATORY NOTE: ? The Pap is a screening test for cervical cancer. It is ?? not a diagnostic test and is subject to false negative ?? and false positive results. It is most reliable when a ?? satisfactory sample, regularly obtained, is submitted ?? with relevant clinical findings and history, and when ?? the Pap result is evaluated along with historic and ?? current clinical information. ?? COMMENT: This Pap test has been evaluated with computer assisted technology. [facility] Fundraising Consultant: SEE COMMENT [facility] Comment: [facility], [place](ASCP) CT screening location: [address] ??[address] HPV nRNA E6/E7 Not Detected Not Detected [facility] Comment: Methodology: Scalloper-Mediated Amplification This assay detects E6/E7 viral messenger RNA (mRNA) from 14 high-risk HPV types (16,18,31,33,35,39,45,51,52,56,58,59,66,68). ? The analytical performance characteristics of this assay have been determined by [employer]. The modifications have not been cleared or approved by the FDA. This assay has been validated pursuant to the CLIA regulations and is used for clinical purposes. ?? For additional information, please refer to http://[employer]/faq/ECV414d1 (This link if provided for information/ educational purposes only.) Interpretation/Re sult: Negative for intraepithelial lesion or malignancy. [facility] LMP: 10/07/21 [facility] Neisseria gonorrhoeae RNA, TMA, Urogenital NOT DETECTED NOT DETECTED [facility] Prev. BX: NONE GIVEN [facility] Prev. PAP: HX ASCUS HPV 2019 CIN1 COLPO [facility] Review Fundraising Consultant: SEE COMMENT [facility] Comment: RMM, CT(ASCP) CT screening location: [facility] [address] ??[address] SOURCE: None given [facility] Statement Of Adequacy: SEE COMMENT [facility] Comment: Satisfactory for evaluation. Endocervical/transformation zone component present. Partially obscuring blood Trichomonas vaginalis, QL, TMA, PAP Vial NOT DETECTED NOT DETECTED [facility] Comment: The analytical performance characteristics of this assay have been determined by [employer]. The modifications have not been cleared or approved by the FDA. This assay has been validated pursuant to the CLIA regulations and is used for clinical purposes. ?? For additional information, please refer to http://[employer]/ faq/Trichomonastma (This link is being provided for information/ educational purposes only.) ?? 10/15/2021 11:0 8 AM EST Meli William [facility] PATHOLOGY ORDERABLES Final Result [facility] [address] * HEPATITIS C AB W/REFL TO HCV RNA, QN, PCR (07/05/2020 4:07 PM EST) HEPATITIS C ANTIBODY NON-REACT DELMI NON-REACT DELMI [facility] INDEX 0.04 <1.00 [facility] Comment: ?? HCV antibody was non-reactive. There is no laboratory ?? evidence of HCV infection. ?? In most cases, no further action is required. However, if recent HCV exposure is suspected, a test for HCV RNA (test code 67322) is suggested. ?? For additional information please refer to http://education.[employer]/faq/EOU19q0 (This link is being provided for informational/ educational purposes only.) ?? HEPATITIS C ANTIBODY NON-REACT DELMI NON-REACT DELMI [facility] INDEX 0.04 <1.00 [facility] Comment: ?? HCV antibody was non-reactive. There is no laboratory ?? evidence of HCV infection. ?? In most cases, no further action is required. However, if recent HCV exposure is suspected, a test for HCV RNA (test code 04828) is suggested. ?? For additional information please refer to http://[employer]/faq/TJP61t2 (This link is being provided for informational/ educational purposes only.) ?? HEPATITIS C ANTIBODY NON-REACT DELMI NON-REACT DELMI [facility] INDEX 0.04 <1.00 [facility] Comment: ?? HCV antibody was non-reactive. There is no laboratory ?? evidence of HCV infection. ?? In most cases, no further action is required. However, if recent HCV exposure is suspected, a test for HCV RNA (test code 68838) is suggested. ?? For additional information please refer to http://[employer]/faq/GES73c9 (This link is being provided for informational/ educational purposes only.) ?? 07/05/2020 4:07 PM EST us Quique Weinberg MD HISTORICAL/NON ORDERABLE LABS Fi nal Result Performing Organization Address City/State[facility] Co de Phone Number [facility] [address] * HIV 1/2 ANTIGEN/ANTIBODY,FOURTH GENERATION W/RFL (07/05/2020 4:07 PM EST) HIV-1/2 ANTIGEN AND ANTIBODIES, 4TH GENERATION W/ REFLEX NON-REACT DELMI NON-REACT DELMI [facility] Comment: HIV-1 antigen and HIV-1/HIV-2 antibodies were not detected. There is no laboratory evidence of HIV infection. ?? PLEASE NOTE: This information has been disclosed to you from records whose confidentiality may be protected by state law. ??If your state requires such protection, then the state law prohibits you from making any further disclosure of the information without the specific written consent of the person to whom it pertains, or as otherwise permitted by law. A general authorization for the release of medical or other information is NOT sufficient for this purpose. ? For additional information please refer to http://[employer]/faq/UPV773 (This link is being provided for informational/ educational purposes only.) ? The performance of this assay has not been clinically validated in patients less than 2 years old. ?? HIV-1/2 ANTIGEN AND ANTIBODIES, 4TH GENERATION W/ REFLEX NON-REACT DELMI NON-REACT DELMI [facility] Comment: HIV-1 antigen and HIV-1/HIV-2 antibodies were not detected. There is no laboratory evidence of HIV infection. ?? PLEASE NOTE: This information has been disclosed to you from records whose confidentiality may be protected by state law. ??If your state requires such protection, then the state law prohibits you from making any further disclosure of the information without the specific written consent of the person to whom it pertains, or as otherwise permitted by law. A general authorization for the release of medical or other information is NOT sufficient for this purpose. ? For additional information please refer to http://[employer]/faq/RAR534 (This link is being provided for informational/ educational purposes only.) ? The performance of this assay has not been clinically validated in patients less than 2 years old. ?? HIV-1/2 ANTIGEN AND ANTIBODIES, 4TH GENERATION W/ REFLEX NON-REACT DELMI NON-REACT DELMI [facility] Comment: HIV-1 antigen and HIV-1/HIV-2 antibodies were not detected. There is no laboratory evidence of HIV infection. ?? PLEASE NOTE: This information has been disclosed to you from records whose confidentiality may be protected by state law. ??If your state requires such protection, then the state law prohibits you from making any further disclosure of the information without the specific written consent of the person to whom it pertains, or as otherwise permitted by law. A general authorization for the release of medical or other information is NOT sufficient for this purpose. ? For additional information please refer to [email or web address]/NXW947 (This link is being provided for informational/ educational purposes only.) ? The performance of this assay has not been clinically validated in patients less than 2 years old. ?? 07/05/2020 4:07 PM EST us Quique Weinberg MD LAB BLOOD ORDERABLES Final Resul t [facility] [address] [place] [address], from Last 3 Months or Most Recently Relevant to Health Maintenance Insurance [facility] , [address] [place] [address] [facility] Care Teams Hand Candy Cutter Relationship Specialty Start Date End Date Faith Peters MD [address] [place] [address] PCP - General Family Medicine 09/06/13
--- OUTSIDE RECORDS SUMMARY | 2025-01-11 10:11 | XMS_ITS | Encounter Summary ---
Author Organization [employer] Address [address] [facility] 7t [place] [address] Care Team Providers Care Site Manager Name Role Phone Faith Peters MD Primary Care Provider [phone] Reason for Visit * Reason Comments Pre-visit Planning SDOH screening posit gretta and Tobacco screening negative Encounter Details Date Type Department Care Team ([facility] st Contact Info) Description 01/09/2025 Patient Outreach [facility] MEDICINE [address] [place] [address] Faith Peters MD [address] [place] [address] Pre-visit Planning (SDOH screening positive and Tobacco screening negative) Social History Tobacco Use Types Packs/Day Years Used Date Smoking Tobacco: Never Passive Smoke Exposure: Never Smokeless Tobacco: Never Alcohol Use Standard Drinks/Week Comments Yes 1 (1 standard drink = 0.6 oz pur e alcohol) Housing Stability Answer Date Recorded What is your housing situation today? I have adama jennings 01/09/[address] you [...] Orientation Straight 06/30/2022 10 :14 AM EDT documented as of this encounter Progress Notes * Jeana Gupta - 01/09/2025 3:22 PM EDT CC Jeana De La Cruz placed successful outbound call to patient for pre-visit planning. Patient name and confirmed. Patient confirms appt date and time, and has transportation arrangements. Biggest concern for appointment at this time is would like to do a colongaurd screening. Patient advised to bringto appointment a photo id and insurance card. Appropriate screenings completed in anticipation of appointment. SDOH positive. Patient looking for assistance with PESTS; MOLD Referral will be placed. documented in this encounter Plan of Treatment Upcoming Encounters Date Type Department Care Team (Late st Contact Info) Description 01/18/2025 8:30 AM EDT Office Visit [facility] MED & PEDS [address] [place] [address] Faith Peters MD [address] [place] [address] documented as of this encounter Visit Diagnoses Not on filedocumented in this encounter Care Teams Site Manager Relationship Specialty Start Date End Date Faith Peters MD [address] [place] [address] PCP - General Family Medicine 09/06/13 documented as of this encounter
--- OUTSIDE RECORDS SUMMARY | 2025-01-11 10:11 | XMS_ITS | Encounter Summary ---
Author Organization [employer] Address [address] [facility] 7t [place] [address] Care Team Providers Care Mine Car Dispatcher Name Role Phone Faith Peters MD Primary Care Provider [phone] Reason for Visit * Reason Comments Care Coordination CHW outreach SDOH pe st control - LVM Encounter Details Date Type Department Care Team (Latest Contact Info) Description 01/10/2025 Patient Outreach [facility] MEDICINE [address] [place] [address] Faith Peters MD [address] [place] [address] Care Coordination (CHW outreach SDWV pest control - LVM ) Social History Tobacco Use Types Packs/Day Years [...] as of this encounter Progress Notes * Theron Morillo - 01/10/2025 2:47 PM EDT CHW Theron Morillo, placed outbound call to patient for assistance with SDOH as a referral was placed by the provider. Patient had screened positive for the following SDOH housing insecurities. Patient did not answer at this time. Patient's name and were not confirmed. CHW left detailed message and provided contact information requesting return call for more assistance. documented in this encounter Plan of Treatment Upcoming Encounters Date Type Department Care Team ([facility] st Contact Info) Description 01/18/2025 8:30 AM EDT Office Visit [facility] CHC MED & PEDS [address] [place] [address] Faith Peters MD [address] [place] [address] documented as of this encounter Visit Diagnoses Not on filedocumented in this encounter Care Teams Mine Car Dispatcher Relationship Specialty Start Date End Date Faith Peters MD [address] [place] [address] PCP - General Family Medicine 09/06/13 documented as of this encounter
--- OUTSIDE RECORDS SUMMARY | 2025-01-11 10:11 | XMS_ITS | Encounter Summary ---
Author Organization [employer] Address [address] [facility] [address] [place] [address] Care Team Providers Care Call Or Contact Centre Operator Name Role Phone Faith Peters MD Primary Care Provider Encounter Details Date Type Department Care Team (Latest Contact Info) Description 01/07/2022 Abstract [facility] CONVERSIONS Dental, Provider, DDS Social History Tobacco Use Types Packs/Day Years Used Date Smoking Tobacco: Never Assessed Comments Unknown Sex and Gender Information Value Date Recorded Sex Assigned at Female 06/30/2022 10:14 AM EDT Legal Sex Female 10:14 AM EDT Gender Identity Female 06/30/2022 10:14 AM EDT Sexual Orientation Straight 06/30/2022 10 :14 AM EDT documented as of this encounter Plan of Treatment Upcoming Encounters Date Type Department Care Team (Late st Contact Info) Description 01/18/2025 8:30 AM EDT Office Visit [facility] CHC MED & PEDS [address] [place] [address] Faith Peters MD [address] [place] [address] documented as of this encounter Visit Diagnoses Not on filedocumented in this encounter Care Teams Call Or Contact Centre Operator Relationship Specialty Start Date End Date Faith Peters MD [address] [place] [phone] PCP - General Family Medicine 09/06/13 documented as of this encounter
--- OUTSIDE RECORDS SUMMARY | 2025-01-11 10:11 | XMS_ITS | Encounter Summary ---
Author Organization [employer] Address [address] [facility] [address] 7[address] [place] [address] Care Team Providers Care Real Estate Agent Name Role Phone Faith Peters MD Primary Care Provider [phone] Reason for Visit * Reason Onset Date Comments Results 06/23/2024 Encounter Details Date Type Department Care Team ([facility] st Contact Info) Description 06/23/2024 Telephone [facility] MEDICINE [address] [place], [place] [phone] Faith Peters MD [address] [place], [place] [phone] Results Social History Tobacco Use Types Packs/Day Years Used Date Smoking Tobacco: Never Passive Smoke Exposure: Never Smokeless Tobacco: Never Alcohol Use Standard Drinks/Week Comments Yes 1 (1 standard drink = 0.6 oz pur e alcohol) Housing Stability Answer Date Recorded What is your housing situation today? Not on kevin e 06/21/[address] you li ve. Do you have problems with any of the following? None of the above 06/21/2024 Food Insecurity Answer Date Recorded Within the [...] AM EDT documented as of this encounter Miscellaneous Notes * Telephone Encounter - Jeana Gupta - 07/01/2024 1:58 PM EDT Tc from pt requesting results. Please see notes. * Telephone Encounter - Lito Coffey - 06/23/2024 2:08 PM EDT Tc from pt returning a call back due to her being at work and couldn't answer. She's worry about her results and will like a callback once again. documented in this encounter Plan of Treatment Upcoming Encounters Date Type Department Care Team (Late st Contact Info) Description 01/18/2025 8:30 AM EDT Office Visit [facility] MED & PEDS [address] [place] [address] Faith Peters MD [address] [place] [address] documented as of this encounter Visit Diagnoses Not on filedocumented in this encounter Care Teams Real Estate Agent Relationship Specialty Start Date End Date Faith Peters MD [address] [place] [id number] PCP - General Family Medicine 09/06/13 documented as of this encounter
== END 2025-01-11 10:01 | disposition home or self-care (01) ==
LOC: HO.HCS 09:30
PROVIDERS: PCP Student in an Organized Health Care Education/Training Program; Visit Provider Internal Medicine Cardiovascular Disease
DX: I10 Essential (primary) hypertension (principal); E78.5 Hyperlipidemia, unspecified
CPT/HCPCS: 99214

== ENCOUNTER → 2025-01-11 09:29 | Outpatient (BNVA) | payer OTHER, SELFPAY | PROVIDERS: PCP Student in an Organized Health Care Education/Training Program; Visit Provider Internal Medicine Cardiovascular Disease ==

== ENCOUNTER 2025-01-18 09:12 | Outpatient (REF) | payer OTHER, SELFPAY ==
--- OUTSIDE RECORDS SUMMARY | 2025-01-18 10:31 | XMS_ITS | Encounter Summary ---
Author Organization [employer] Address [address] [facility] [address] 7t [place] [address] Care Team Providers Care Chemical Preparer Name Role Phone Faith Peters MD Primary Care Provider [phone] Reason for Visit * Reason Onset Date Comments Results 06/23/2024 Encounter Details Date Type Department Care Team ([facility] st Contact Info) Description 06/23/[address] [facility] MEDICINE [address] [place] [address] Faith Pteers MD [address] [place], [place] [phone] Results Social History Tobacco Use Types Packs/Day [...] documented in this encounter Plan of Treatment Not on file documented as of this encounter Visit Diagnoses Not on filedocumented in this encounter Care Teams Chemical Preparer Relationship Specialty Start Date End Date Faith Peters MD [address] [place] [id number] PCP - General Family Medicine 09/06/13 documented as of this encounter
--- OUTSIDE RECORDS SUMMARY | 2025-01-18 10:31 | XMS_ITS | Encounter Summary ---
Author Organization [employer] Address [address] [place] [address] [address]t [place] [address] Care Team Providers Care Director Of Employee Development Name Role Phone Faith Peters MD Primary Care Provider [phone] Encounter Details Date Type Department Care Team (Latest Contact Info) Description 01/07/2022 Abstract [facility] CONVERSIONS Dental, Provider, DDS Social History Tobacco Use Types Packs/Day Years Used Date Smoking Tobacco: Never Assessed Comments Unknown Sex and Gender Information Value Date Recorded Sex Assigned at Female 06/30/2022 10:14 AM EDT Legal Sex Female 10:14 AM EDT Gender Identity Female 06/30/2022 10:14 AM EDT Sexual Orientation Straight 06/30/2022 10 :14 AM EDT documented as of this encounter Plan of Treatment Not on file documented as of this encounter Visit Diagnoses Not on filedocumented in this encounter Care Teams Director Of Employee Development Relationship Specialty Start Date End Date Faith Peters MD [address] [place] [address] PCP - General Family Medicine 09/06/13 documented as of this encounter
--- OUTSIDE RECORDS SUMMARY | 2025-01-18 10:31 | XMS_ITS | Encounter Summary ---
Author Organization [employer] Address [address] [facility] [address] [place] [address] Care Team Providers Care Briefcase Sewer Name Role Phone Faith Peters MD Primary Care Provider [phone] Encounter Details Date Type Department Care Team (Latest Contact Info) Description 01/18/2025 Travel Social History Tobacco Use Types Packs/Day Years Used Date Smoking Tobacco: Never Passive Smoke Exposure: Never Smokeless Tobacco: Never Alcohol Use Standard Drinks/Week Comments Yes 1 (1 standard drink = 0.6 oz pur e alcohol) Depression Answer Date Recorded Patient Health Questionnaire-9 Score 4 01/18/2025 Patient Health Questionnaire-9 Score 4 01/18/2025 Last PHQ-9: Questionnaire Data Not on file 0 01/18/2025 Housing Stability Answer Date Recorded What is [...] Answer Date Recorded Patient Health Questionnaire-2 Score 1 01/18/2025 Internet Access Answer Date Recorded Internet Access Q1 Yes 06/21/2024 Internet Access Q2 Not on file 06/21/2024 Comments No Sex and Gender Information Value Date Recorded Sex Assigned at Female 06/30/2022 10:14 AM EDT Legal Sex Female 10:14 AM EDT Gender Identity Female 06/30/2022 10:14 AM EDT Sexual Orientation Straight 06/30/2022 10 :14 AM EDT documented as of this encounter Functional Status * Over the past 2 weeks, how often have you been bothered by any of the following problems? Question Answer Date of Assessment Author Patient Health Questionnaire -2 Score 1 01/18/2025 9:08 AM EDT Clover Davis [place] * Little interest or pleasure in doing things Answer Date of Assessment Author Not at all 01/18/2025 9:08 AM Jhoana Mancilla [place] * Feeling down, depressed, or hopeless Answer Date of Assessment Author Several days 01/18/2025 9:08 AM Jhoana Mancilla [place] * Trouble falling or staying asleep, or sleeping too much Answer Date of Assessment Author Several days 01/18/2025 9:08 AM Jhoana Mancilla [place] * Feeling tired or having little energy Answer Date of Assessment Author Several days 01/18/2025 9:08 AM Jhoana Mancilla MA * Poor appetite or overeating Answer Date of Assessment Author Not at all 01/18/2025 9:08 AM Jhoana Mancilla MA * Feeling bad about yourself - or that you are a failure or have let yourself or your family down Answer Date of Assessment Author Several days 01/18/2025 9:08 AM Jhoana Mancilla MA * Trouble concentrating on things, such as reading the newspaper or watching television Answer Date of Assessment Author Not at all 01/18/2025 9:08 AM Jhoana Mancilla MA * Moving or speaking so slowly that other people could have noticed? Or the opposite - being so fidgety or restless that you have been moving around a lot more than usual. Answer Date of Assessment Author Not at all 01/18/2025 9:08 AM Jhoana Mancilla MA * Thoughts that you would be better off or hurting yourself in some way Answer Date of Assessment Author Not at all 01/18/2025 9:08 AM Jhoana Mancilla MA * Patient Health Questionnaire-9 Score Answer Date of Assessment Author 4 01/18/2025 9:08 AM Jhoana Mancilla MA * How difficult have these problems made it for you to do your work, take care of things at home, or get along with other people? Answer Date of Assessment Author Somewhat difficult 01/18/2025 9:08 AM Clover Mancilla [place] documented as of this encounter Plan of Treatment Not on file documented as of this encounter Visit Diagnoses Not on filedocumented in this encounter Additional Health Concerns Assessment Noted Time PHQ-9 Depression Total Score: 4 01/19/20 25 9:08 AM EDT documented as of this encounter Care Teams Briefcase Sewer Relationship Specialty Start Date End Date Faith Peters MD [address] [place] [id number] PCP - General Family Medicine 09/06/13 documented as of this encounter
--- OUTSIDE RECORDS SUMMARY | 2025-01-18 10:31 | XMS_ITS | Encounter Summary ---
Author Organization [employer] Address [address] [facility] 7t [place] [address] Care Team Providers Care Fire Patroller Name Role Phone Faith Peters MD Primary Care Provider [phone] Reason for Visit * Reason Onset Date Comments Chart Prep 01/16/2025 Encounter Details Date Type Department Care Team ([facility] Contact Info) Description 01/16/2025 Telephone [facility] CHC MED & PEDS [address] [place], [place] [phone] Faith Peters MD [address] [place] [address] Chart Prep Social History Tobacco Use Types Packs/Day Years [...] encounter Miscellaneous Notes * Telephone Encounter - Clover Davis MA - 01/16/2025 1:22 PM EDT Chart Prep Labs: done Images: done Referrals: complete Vaccines due: Hep B and Zoster Screenings: mammogram and STI screening Overdue care gaps: PHQ-9, Oral health screening, Disability screen, and Tobacco documented in this encounter Plan of Treatment Not on file documented as of this encounter Visit Diagnoses Not on filedocumented in this encounter Care Teams Fire Patroller Relationship Specialty Start Date End Date Faith Peters MD [address] [place] [id number] PCP - General Family Medicine 09/06/13 documented as of this encounter
--- OUTSIDE RECORDS SUMMARY | 2025-01-18 10:31 | XMS_ITS | Encounter Summary ---
Author Organization [employer] Address [address] [place] [address] 7t [place] [address] Care Team Providers Care Surgical Services Manager Name Role Phone Faith Peters MD Primary Care Provider [phone] Reason for Referral * Imaging (Routine) - Pending Review Specialty Diagnoses / Procedures Referred By Hayden caballero Referred To Contact Radiology Diagnoses Encounter for screening mammogram for breast cancer Procedures BI Mammogram Screening Tomosynthesis Bilateral Faith Peters MD [address] [place] [address] Phone: tel: fax: Referral ID Status Reason Start Date Expiration Date V isits Requested Visits Authorized [id number] Pending Review 01/18/2025 01/18/2026 1 1 Encounter Details Date Type Department Care Team (Latest Contact Info) Description 01/18/2025 8:30 AM EDT Office Visit [facility] CHC MED & PEDS [address] [place] [address] Faith Peters MD [address] [place] [address] Primary hypertension (Primary Dx); Acute bacterial conjunctivitis of left eye; Hypothyroidism, unspecified type; Dietary counseling; Exercise counseling; Encounter for screening mammogram for breast cancer Social History Tobacco Use Types Packs/Day Years [...] AM EDT documented as of this encounter Last Filed Vital Signs Vital Sign Reading Time Taken Comments Blood Pressure 115/71 01/18/2025 8:49 AM EDT Pulse 80 01/18/2025 8:49 AM EDT Temperature 36.4 ??C (97.6 ??F) 01/18/2025 8:49 AM ED T Respiratory Rate 18 01/18/2025 8:49 AM EDT Oxygen Saturation 97% 01/18/2025 8:49 AM EDT Inhaled Oxygen Concentration - - Weight 95.3 kg (210 lb) 01/18/2025 8:49 AM EDT Height 167.6 cm (5' 6 ) 01/18/2025 8:49 AM EDT Body Mass Index 33.89 01/18/2025 8:49 AM EDT documented in this encounter Functional Status * Over the past 2 weeks, how often have you been bothered by any of the following problems? Question Answer Date of Assessment Author Patient Health Questionnaire -2 Score 1 01/18/2025 9:08 AM JESSICAT Clover Davis [place] * Little interest or [...] Not at all 01/18/2025 9:08 AM Jhoana Mnacilla MA * Moving or speaking so slowly [...] Mancilla MA documented as of this encounter Progress Notes * Faith Peters MD - 01/18/2025 8:30 AM EDT Subjective Patient ID: Anika Sanchez is a 49 y.o. female who presents for No chief complaint on file.. Hypertension This is a chronic problem. The current episode started more than 1 year ago. The problem is unchanged. The problem is controlled. Pertinent negatives include no chest pain, headaches, neck pain, palpitations or shortness of breath. Risk factors for coronary artery disease include family history, obesity and sedentary lifestyle. Past treatments include diuretics and JULITA inhibitors. The current treatment provides significant improvement. There are no compliance problems. Conjunctivitis The onset was gradual. The problem has been gradually worsening. The problem is moderate. Nothing relieves the symptoms. Nothing aggravates the symptoms. Associated symptoms include eye itching, eye discharge and eye redness. Pertinent negatives include no decreased vision, no double vision, no headaches and no neck pain. Review of Systems Constitutional: Negative. Eyes: Positive for discharge, redness and itching. Negative for double vision. Respiratory: Negative. Negative for shortness of breath. Cardiovascular: Negative for chest pain and palpitations. Gastrointestinal: Negative. Genitourinary: Negative. Musculoskeletal: Negative for neck pain. Neurological: Negative for headaches. Objective Physical Exam Constitutional: Appearance: Normal appearance. Cardiovascular: Rate and Rhythm: Normal rate and regular rhythm. Pulses: Normal pulses. Heart sounds: Normal heart sounds. Pulmonary: Effort: Pulmonary effort is normal. Abdominal: General: Abdomen is flat. Neurological: Mental Status: She is alert. Assessment/Plan Diagnoses and all orders for this visit: Primary hypertension Comments: Well controlled No changes in meds Maintain a low-sodium diet (less than 2 grams per day). Maintain a regular cardiovascular exercise program. Advised to maintain a low-fat, low-cholesterol diet. Counseled regarding importance of weight loss. Counseled re: potential co-morbidities including cardiovascular disease. Orders: - Basic Metabolic Panel; Future - Lipid Panel, Standard; Future - Hepatic Function Panel; Future - TSH with Reflex to Free T4; Future Acute bacterial conjunctivitis of left eye Comments: Started on Maxitrol advised not to rub the eyes Hypothyroidism, unspecified type Comments: Labs ordered today Orders: - Lipid Panel, Standard; Future - TSH with Reflex to Free T4; Future Dietary counseling Exercise counseling Advised to maintain a low-fat, low-cholesterol diet. Counseled regarding importance of weight loss. Counseled re: potential co-morbidities including cardiovascular disease. Encounter for screening mammogram for breast cancer - BI Mammogram Screening Tomosynthesis Bilateral; Future Other orders - [id number] (Maxitrol) 0.1 % ophthalmic suspension; Administer 1 drop into the right eye 4 times daily for 10 days. documented in this encounter Plan of Treatment Scheduled Orders Name Type Priority Associated Diagnoses Orde r Schedule Basic Metabolic Panel Lab Routine Primary hypertension Expected: 01/18/2025 (Approximate), Expires: 01/18/2026 Lipid Panel, Standard Lab Routine Primary hypertension Hypothyroidism, unspecified type Expected: 01/18/2025 (Approximate), Expires: 01/18/2026 Hepatic Function Panel Lab Routine Primary hypertension Expected: 01/18/2025 (Approximate), Expires: 01/18/2026 TSH with Reflex to Free T4 Lab Routine Primary hypertension Hypothyroidism, unspecified type Expected: 01/18/2025 (Approximate), Expires: 01/18/2026 BI Mammogram Screening Tomosynthesis Bilateral Imaging Routine Encounter for screening mammogram for breast cancer Expected: 01/18/2025, Expires: 03/20/2026 documented as of this encounter Visit Diagnoses Diagnosis Primary hypertension- Primary Unspecified essential hypertension Acute bacterial conjunctivitis of left eye Hypothyroidism, unspecified type Dietary counseling Dietary surveillance and counseling Exercise counseling Encounter for screening mammogram for breast cancer documented in this encounter Additional Health Concerns Assessment Noted Time PHQ-9 Depression Total Score: 4 01/19/20 25 9:08 AM EDT documented as of this encounter Care Teams Surgical Services Manager Relationship Specialty Start Date End Date Faith Peters MD [address] [place] [id number] PCP - General Family Medicine 09/06/13 documented as of this encounter
--- OUTSIDE RECORDS SUMMARY | 2025-01-18 10:31 | XMS_ITS | Clinical Summary ---
Author Organization [employer] Address [address] [place] [address] [address] [place] [address] Care Team Providers Care Government Sales Manager Name Role Phone Faith Peters MD Primary Care Provider [phone] Allergies Active Allergy Reactions Criticality Noted Date Comments Amoxicillin Hives 02/18/2012 Azithromycin Hives 12/22/2022 Erythromycin Base 12/22/2022 Other Reaction(s): Hives, redness Medications FLUoxetine (PROzac) 10 MG tablet TAKE 1 AND 1/2 TABLETS BY MOUTH EVERY MORNING WITH A MEAL 05/15/20 22 Active levothyroxine (Synthroid, Levoxyl) 150 MCG tabletIndicatio ns:Hypothyroidi sm, unspecified type Take 1 tablet (150 mcg) by mouth Once per day. 270 tablet 3 06/21/20 24 Active lisinopril-hydr oCHLOROthiazide 20-25 MG tabletIndicatio ns:Primary hypertension Take 1 tablet by mouth Once per day. 90 tablet 3 06/21/20 24 Active Hyrimoz 40 MG/0.4ML solution auto-injector 0 Refills, Maintenance, 05/09/24 8:24:00 EDT, Partial fill upon patient request if the prescription is for a schedule II opioid drug. 01/30/20 24 Active atomoxetine (Strattera) 25 MG capsule 06/20/20 24 Active Cholecalciferol (Vitamin D3) 50 MCG (1999) chewable tablet 05/01/20 23 Active estradiol (Estrace) 0.1 MG/GM vaginal cream Insert 2 g into the vagina. 12/09/19 23 Active LORazepam (Ativan) 0.5 MG tablet 05/01/20 23 Active chlorhexidine (Peridex) 0.12 % solutionIndicat ions:History of tooth extraction, unspecified edentulism class Swish 15 mL morning and night for 1 minute. Spit, do not swallow. Do not eat or drink for 30 minutes following use. 473 mL 08/23/20 Active neomycin-polymy tai-dexAMETHaso ne (Maxitrol) 0.1 % ophthalmic suspension Administer 1 drop into the right eye 4 times daily for 10 days. 5 mL 1 01/19/20 25 2024 Active adalimumab (Humira, 2 Syringe,) 40 MG/0.8ML Prefilled Syringe Kit prefilled syringe Inject 40 mg under the skin. 03/17/20 23 2024 Discontinued Active Problems Problem Noted Date Diagnosed Date [...] Encounters Date Type Department Care Team Description 01/18/2025 8:30 AM EDT Office Visit [facility] [address] [place] [address] Faith Peters MD Primary hypertension (Primary Dx); Acute bacterial conjunctivitis of left eye; Hypothyroidism, unspecified type; Dietary counseling; Exercise counseling; Encounter for screening mammogram for breast cancer 01/18/2025 Travel 01/16/2025 Telephone [facility] [address] [place] [address] Faith Peters MD Chart Prep 01/11/2025 Travel 01/10/2025 Patient Outreach [facility] [address] [place] [phone] Faith Peters MD Care Coordination ([facility] outreach SDOH pest control - LVM ) 01/09/2025 Patient Outreach [address] [address] Faith Peters MD Pre-visit Planning (SDOH screening positive and Tobacco screening negative) 12/22/2024 Telephone [facility] [address] [place] [address] Faith Peters MD 10/22/2024 Orders Only GENERIC EXTERNAL DATA DEPARTMENT Provider, Generic External Data from Last 3 Months Immunizations Immunization Administration Dates Next Due INFLUENZA INJECTABLE QUADRIV ALANT CCIIV4 MDCK Multi-dose vial 07/03/2021 Influenza injectable quadriv alent IIV4 with preservative 06/23/2017,05/17/2015 Influenza injectable quadriv alent preservative free 09/19/2022 Influenza, trivalent, adjuvanted 07/26/2024 Pfizer Covid-19 Vaccine 12+ 10/10/2021,,01/24/2021 Pfizer Covid-19 [...] Mass Index 33.89 01/18/2025 8:49 AM EDT Plan of Treatment Health Maintenance Due Date Last Done Comments CT Colonography 1975 FIT DNA/Cologuard 1975 FIT 1975 FOBT 1975 Sigmoidoscopy 1975 Family Planning (PISQ) 1990 Hepatitis B Vaccines (1 of 3 - 19+ 3-dose series) 1994 Mammogram 04/22/2024 04/22/2023, 06/0 03/2021, 08/08/2019, Additional history exists Dental Oral Exam 01/09/2025 07/11/2024 Dental Prophylaxis 01/10/2025 10/12/2024, 1 09/10/2023, 08/28/2022 Zoster Vaccines (1 of 2) 2025 COVID-19 Vaccine ( season) 2025 10/10/2021, 10/10/2021, 02/14/2021, Additional history exists Postponed from 05/01/2024 (Patient Refused) Dental X-Ray: Bitewings 07/12/2025 07/11/2024 SDOH Screening 01/09/2026 01/09/2025 Alcohol/Substance Use Screening 01/18/2026 01/18/2025 Depression Screening 01/18/2026 01/18/2025, 01/19/20 25 Disability Screening 01/18/2026 01/18/2025 Tobacco Screening 01/18/2026 01/18/2025 Dental X-Ray: Full Mouth 08/18/2027 08/17/2024 Colonoscopy 03/12/2028 Colorectal Cancer Screening 03/12/2028 Lipid Panel 10/22/2029 10/22/2024, 06/01, 09/23/2022, Additional [...] patient's age to complete this topic Meningococcal B Vaccine Aged Out No l onger eligible based on patient's age to complete [...] 10:00 AM EST) Triglycerides 148 <150 mg/dL [facility] Comment:Desirable Triglyceri de: less than 150 mg/dLBorderline High Triglyceride 150-199 mg/dLHigh Triglyceride: 200-499 mg/dLVery High Triglyceride: greater than or equal to 5OO mg/dL Cholesterol 182 <200 mg/dL [facility] Comment:Desirable Cholestero l: less than 200 mg/dLBorderline High Cholesterol: 200-239 mg/dLHigh Cholesterol: greater than 239 mg/dL LDL Cholesterol Calculated 103(H) <100 mg/dL [facility] Comment:Desirable LDL: less than 100 mg/dLNear Optimal/Above Optimal LDL: 110- 129 mg/dLBorderline High LDL: 130-159 mg/dLHigh LDL: 160-189 mg/dLVery High LDL: greater than or equal to 190 mg/dL HDL Cholesterol 50 >40 mg/dL [facility] Comment:Desirable HDL: great er than 40 mg/dL Note: This HDL assay may give artificially low results in patients with liver disease. 10/22/2024 10:0 0 AM EST 10/22/2024 11:10 AM EST us Generic External Data Provider LAB BLOOD ORDERAB LES Final Result [facility] [address] [place] [phone] * BI Mammogram Screening Tomosynthesis Bilateral (04/22/2023 8:49 AM EDT) Anatomical Region Laterality Modality Breast Bilateral Mammography 04/22/2023 8:49 AM EDT Narrative 05/08/2023 10:49 AM EDT ? [facility] ? [address] ?[place] [address] ? Mammography Report ? Signed ? Patient: Bigas,Ibeliz ?MR#: [id number] ? : 1975 ?Acct:[id number] ? Age/Sex: 48 / F ?ADM Date: 04/22/23 ? Loc: HO.MAMMO ? Attending Dr: Faith Peters MD ? Ordering Physician: Faith Peters MD ?Results: 2Benign ?? Findings ? Date of Service: 04/22/23 ?Follow Up: 1 Year From Orig ?? inal Mammogram ? Procedure(s): MM tomosynthesis screening BI ?? Accession Number(s): [id number] ? cc: Faith Peters MD ? EXAMINATION: [...] 1045 ? DD/ 0849 ? TD/TT: ? Lawn Care Professional: ? Procedure Note Calli, Image - 05/11/2023 [facility] [address] [place] [address] Mammography Report Signed Patient: Hilda BanerjeeMR#: [id number] : 1975Acct:[id number] Age/Sex: 48 / FADM Date: 04/22/23 Loc: HO.MAMMO Attending Dr: Faith Peters MD Ordering Physician: Faith Peters MDResults: 2Benign Findings Date of Service: 04/22/23Follow Up: 1 Year From Orig inal Mammogram Procedure(s): MM tomosynthesis screening BI Accession Number(s): [id number] cc: Faith Peters MD EXAMINATION: MM SCREENING [...] in OV> 05/08/23 1045 DD/ 0849 TD/TT: Lawn Care Professional: us Faith Peters MD IMG BI PROCEDURES Edited Result - Final * HPV E6/E7 RFLX GREGORIA 16 18/45 (03/27/2022 12:12 PM EDT) HPV 16 RNA TNP [facility] HPV 18/45 RNA [facility]NP [facility] HPV E6 E7 ADD TNP [facility] HPV mRNA E6/E7 rflx Not Detected Not Detected [facility] Comment: Methodology: [employer] Cutter-Mediated Amplification This assay detects E6/E7 viral messenger RNA (mRNA) from 14 high-risk HPV types (16,18,31,33,35,39,45,51,52,56,58,59,66,68). Cervical sources are required for HPV testing. If a vaginal source from a patient who has had a total hysterectomy with removal of cervix was submitted, please contact the testing laboratory for alternative testing options. For additional information, please refer to http://education.GoGarden/faq/CTZ783t4 (This link if provided for information/ educational purposes only.) THIS TEST WAS PERFORMED AT: [facility] [address] [place] [address] [address] [place], [place] ??[phone] STEFFANIE MCDOWELL MD 03/27/2022 12:1 2 PM EDT Roberto Hinojosa MD HISTORICAL/NON ORDERABLE LABS Fi nal Result [facility] [address] [place] [address], * THINPREP TIS PAP AND HPV mRNA E6/E7, CT/NG, TRICH (10/15/2021 11:08 AM EST) Chlamydia trachomatis RNA, TMA, Urogenital NOT DETECTED NOT DETECTED [facility] Clinical Information: None given [facility] COMMENT SEE COMMENT [facility] Comment: The analytical performance characteristics of this assay, when used to test SurePath(TM) specimens have been determined by [facility]. The modifications have not been cleared or approved by the FDA. This assay has been validated pursuant to the CLIA regulations and is used for clinical purposes. ?? For additional information, please refer to https://education.GoGarden/faq/AAV117 (This link is being provided for information/ [...] has been evaluated with computer assisted technology. [facility] Multi Sensor Operator: SEE COMMENT [facility] Comment: MSM, CT(ASCP) CT screening location: [address] ??[address] HPV nRNA E6/E7 Not Detected Not Detected [facility] Comment: Methodology: [employer] Cutter-Mediated Amplification This assay detects E6/E7 viral messenger RNA (mRNA) from 14 high-risk HPV types (16,18,31,33,35,39,45,51,52,56,58,59,66,68). ? The analytical performance characteristics of this assay have been determined by [employer]. The modifications have not been cleared or approved by the FDA. This assay has been validated pursuant to the CLIA regulations and is used for clinical purposes. ?? For additional information, please refer to http://Next Step Living.GoGarden/faq/CER247r0 (This link if provided for information/ educational purposes only.) Interpretation/Re sult: Negative for intraepithelial lesion or malignancy. [facility] LMP: 10/07/21 [facility] Neisseria gonorrhoeae RNA, TMA, Urogenital NOT DETECTED NOT DETECTED [facility] Prev. BX: NONE GIVEN [facility] Prev. PAP: HX ASCUS HPV 2019 CIN1 COLPO [facility] Review Multi Sensor Operator: SEE COMMENT [facility] Comment: RMM, CT(ASCP) CT screening location: [address] ??[id number] SOURCE: None given [facility] Statement Of Adequacy: SEE COMMENT [facility] Comment: Satisfactory for evaluation. Endocervical/transformation zone component present. Partially obscuring blood Trichomonas vaginalis, QL, TMA, PAP Vial NOT DETECTED NOT DETECTED [facility] Comment: The analytical performance characteristics of this assay have been determined by [employer]. The modifications have not been cleared or approved by the FDA. This assay has been validated pursuant to the CLIA regulations and is used for clinical purposes. ?? For additional information, please refer to http://education.GoGarden/ faq/Trichomonastma (This link is being provided for information/ educational purposes only.) ?? 10/15/2021 11:0 8 AM EST us Meli William CNM LAB PATHOLOGY ORDERABLES Final Result [facility] [address] * HEPATITIS C AB W/REFL TO HCV RNA, QN, PCR (07/05/2020 4:07 PM EST) HEPATITIS C ANTIBODY NON-REACT DELMI NON-REACT DELMI [facility] INDEX 0.04 <1.00 [facility] Comment: ?? HCV antibody was non-reactive. There is no laboratory ?? evidence of HCV infection. ?? In most cases, no further action is required. However, if recent HCV exposure is suspected, a test for HCV RNA (test code 13874) is suggested. ?? For additional information please refer to http://Altavian/faq/LZX04i3 (This link is being provided for informational/ educational purposes only.) ?? HEPATITIS C ANTIBODY NON-REACT DELMI NON-REACT DELMI [facility] INDEX 0.04 <1.00 [facility] Comment: ?? HCV antibody was non-reactive. There is no laboratory ?? evidence of HCV infection. ?? In most cases, no further action is required. However, if recent HCV exposure is suspected, a test for HCV RNA (test code 93828) is suggested. ?? For additional information please refer to http://Altavian/faq/PZC91k1 (This link is being provided for informational/ educational purposes only.) ?? HEPATITIS C ANTIBODY NON-REACT DELMI NON-REACT DELMI [facility] INDEX 0.04 <1.00 [facility] Comment: ?? HCV antibody was non-reactive. There is no laboratory ?? evidence of HCV infection. ?? In most cases, no further action is required. However, if recent HCV exposure is suspected, a test for HCV RNA (test code 82912) is suggested. ?? For additional information please refer to http://Altavian/faq/QXB84i0 (This link is being provided for informational/ educational purposes only.) ?? 07/05/2020 4:07 PM EST us Quique Weinberg MD HISTORICAL/NON ORDERABLE LABS Fi nal Result [facility] [address] * HIV 1/2 ANTIGEN/ANTIBODY,FOURTH GENERATION W/RFL (07/05/2020 4:07 PM EST) HIV-1/2 ANTIGEN AND ANTIBODIES, 4TH GENERATION W/ REFLEX NON-REACT DELMI NON-REACT DELMI [facility] Comment: HIV-1 antigen and HIV-1/HIV-2 [...] ? For additional information please refer to http://Next Step Living.GoGarden/faq/YHE090 (This link is being provided for informational/ educational purposes only.) ? The performance of this assay has not been clinically validated in patients less than 2 years old. ?? HIV-1/2 ANTIGEN AND ANTIBODIES, 4TH GENERATION W/ REFLEX NON-REACT DELMI NON-REACT DELMI [facility] Comment: HIV-1 antigen and HIV-1/HIV-2 [...] ? For additional information please refer to http://Next Step Living.GoGarden/faq/CGF839 (This link is being provided for informational/ educational purposes only.) ? The performance of this assay has not been clinically validated in patients less than 2 years old. ?? HIV-1/2 ANTIGEN AND ANTIBODIES, 4TH GENERATION W/ REFLEX NON-REACT DELMI NON-REACT DELMI [facility] Comment: HIV-1 antigen and HIV-1/HIV-2 [...] ? For additional information please refer to http://Next Step Living.GoGarden/faq/MBM729 (This link is being provided for informational/ educational purposes only.) ? The performance of this assay has not been clinically validated in patients less than 2 years old. ?? 07/05/2020 4:07 PM EST us Quique Weinberg MD LAB BLOOD ORDERABLES Final Resul t [facility] [address] from Last 3 Months or Most Recently Relevant to Health Maintenance Insurance [facility] [address] [place] [address] [facility] Care Teams Government Sales Manager Relationship Specialty Start Date End Date Faith Peters MD [address] [place] [phone] PCP - General Family Medicine 09/06/13
[2025-01-18 15:26] LABS: Alanine Aminotransferase 15 U/L (0-31); Albumin Level 3.9 g/dL (3.5-5.0); Alkaline Phosphatase 71 U/L (39-117); Anion Gap 10 (12-20); Aspartate Amino Transferase 23 U/L (5-31); Bilirubin Direct 0.2 mg/dL (0.0-0.5); Bilirubin Total 0.5 mg/dL (0.0-1.0); Blood Urea Nitrogen 15 mg/dL (9-16); Calcium 9.1 mg/dL (8.4-10.2); Carbon Dioxide 29 mmol/L (22-29); Chloride 103 mmol/L (96-108); Cholesterol 186 mg/dL (<200); Estimated Glomerular Filt Rate > 60; Glucose Random 93 mg/dL (60-115); HDL Cholesterol 41 mg/dL (>40); LDL Cholesterol Calculated 122 mg/dL (<100); Potassium 4.1 mmol/L (3.3-5.1); Sodium 138 mmol/L (135-145); Triglycerides 115 mg/dL (<150)
[2025-01-18 15:30] LABS: TSH reflex Free T4 0.36 uIU/mL (0.32-4.0)
== END 2025-01-18 09:13 | disposition home or self-care (01) ==
LOC: HO.CHCLDS 09:12
PROVIDERS: Visit Provider Student in an Organized Health Care Education/Training Program
DX: I10 Essential (primary) hypertension (principal); E03.9 Hypothyroidism, unspecified
CPT/HCPCS: 36415; 80048; 80061; 80076; 84443

== ENCOUNTER 2025-03-15 14:29 | Outpatient (AMB) | payer OTHER, SELFPAY ==
--- NOTE | 2025-03-15 14:32 | MHC.OFFWIV ---
Intake Vital Signs 03/15/25 14:35 Height 5 ft 6 in Weight 212 lb BMI 34.2 BP 114/76 Blood Pressure Location Lt brachial Position Sitting Pulse 97 Pulse Source Pulse Oximeter Temp 98.1 F Temp Source Oral Pulse Oximetry (%) 96 Oxygen Delivery Method Room Air Intake Visit Reasons: EP Ear ache Intake Note: presents with left ear pain and sinus congestion with green mucus for 3 days Patient Tobacco Use Status: Never used Tobacco Allergies azithromycin Allergy (Unknown, Verified 03/15/25 14:37) Hives erythromycin base (ERYTHROMYCIN BASE) Allergy (Unknown, Verified 06/23/24 15:46) Hives, redness Do you need a note to return to daycare/school/sports/work: No HPI HPI Comments History of Present Illness Details Patient is a 49yo F with hx of HLD, HTN, SULTANA who presents with ear pain L ear pain x 3 days States associated congestion Blowing nose makes it worse No ear drainage No fever or chills Rates pain as an 8/10 Ibuprofen with some help She denies ST or cough Denies similar family sick but + co-worker sick too [facility] Medical History (Updated 03/15/25 @ 14:48 by Bushra Pathak PA-C) Uterine cancer Dysplasia of cervix, low grade (MATHEW 1) HTN (hypertension) Rheumatoid arthritis Hypothyroid Surgical History Hx of colonoscopy H/O: hysterectomy History of hysteroscopy History of placement of ear tubes Family History Father Colon cancer Mother Stroke Social History Household Members: Significant Other Housing: Apartment Are you a primary primary care provider to a significant other at home: No Do you presently have visiting nurse or other home services: No Alcohol intake: current Alcohol intake frequency: holidays/special occasions only Patient Tobacco Use Status: Never used Tobacco Current occupational status: employed Gender identity: Female Female Reproductive History Menstrual Age of Menarche: 11 Review of Systems Const Denies chills and Denies fever(s) Eyes Denies change in vision ENT Denies dizziness, Reports otalgia, Reports nasal discharge, Denies sinus pain and Denies sore throat Card Denies chest pain and Denies dyspnea Resp Denies dyspnea Musc Denies myalgias Neuro Denies dizziness Physical Exam Vital Signs: Last Vital Signs Temp 98.1 F 03/15/25 14:35 Pulse 97 03/15/25 14:35 BP 114/76 03/15/25 14:35 Pulse Ox 96 03/15/25 14:35 Oxygen Delivery Method Room Air 03/15/25 14:35 BMI result Body Mass Index 34.2 General: Non-toxic, NAD. Speaking full sentences. Skin: Warm dry throughout Eye: EOMI HENT: Airway patent. Uvula midline. No pharyngeal erythema or edema. No STEAM CONDITIONER FILLING. Bilateral canals clear. + fluid fluid behind L TM. TMs non-erythematous, non-bulging. No TM perforation or hemotympanum noted. No mastoid tenderness Respiratory: CTA bilaterally. No wheezes, rales or rhonchi Cardiac: RRR. No murmur Neurology: Alert. No aphasia or facial droop. Gait without abnormality Psych: Good mood and affect Assessment & Plan Assessment & Plan (1) Eustachian tube dysfunction: Code(s): H69.90 - Unspecified Eustachian tube disorder, unspecified ear Qualifiers: Laterality: left Qualified Code(s): H69.92 - Unspecified Eustachian tube disorder, left ear Plan: Patient seen and evaluated. No OM or OE on exam Nasal steroid and antihistamine use discussed F/U with PCP Worsening s/s she will call office Patient gave verbal understanding and had no additional questions or concerns at time of discharge All questions answered Medications: New ipratropium bromide administer into each nostril 2 sprays intranasal BID 30 mL 0RF Coding Level of Care Code Est Pt Level 3 (28873) Diagnoses Dysfunction of left eustachian tube H69.92 Laterality: left
[2025-03-15 14:35] VITALS: BP 114/76; PULSE 97; TEMP 36.7; O2SAT 96; BMI 34.2
--- OUTSIDE RECORDS SUMMARY | 2025-03-15 15:10 | XMS_ITS | Clinical Summary ---
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 90 tablet 3 4 Active Hyrimoz 40 MG/0.4ML solution auto-injector 0 Refills, Maintenance, 05/09/24 8:24:00 EDT, Partial fill upon patient request if the prescription is for a schedule II opioid drug. 4 Active atomoxetine (Strattera) 25 MG capsule 4 Active Cholecalciferol (Vitamin D3) 50 MCG (1999) chewable tablet 3 Active estradiol (Estrace) 0.1 MG/GM vaginal cream Insert 2 g into the vagina. 3 Active LORazepam (Ativan) 0.5 MG tablet 3 Active chlorhexidine (Peridex) 0.12 % solutionIndicati ons:History of tooth extraction, unspecified edentulism class Swish 15 mL morning and night for 1 minute. Spit, do not swallow. Do not eat or drink for 30 minutes following use. 473 mL Active Active Problems Problem Noted Date Diagnosed [...] Encounters Date Type Department Care Team Description 03/15/2025 Telephone [facility] [address] [place] [address] Faith Peters MD Nurse Triage 01/18/2025 8:30 AM EDT Office Visit [facility] [address] [place] [address] Faith Peters MD Primary hypertension (Primary Dx); Acute bacterial conjunctivitis of left eye; Hypothyroidism, unspecified type; Dietary counseling; Exercise counseling; Encounter for screening mammogram for breast cancer 01/18/2025 Travel 01/16/2025 Telephone [facility] [address] [place] [address] Faith Peters MD Chart Prep 01/11/2025 Travel 01/10/2025 Patient Outreach [facility] [address] [place] [phone] Faith Peters MD Care Coordination (CHW outreach SDOH pest control - LVM ) 01/09/2025 Patient Outreach [facility] [address] [place] [address] Faith Peters MD Pre-visit Planning (SDOH screening positive and Tobacco screening negative) 12/22/2024 Telephone [facility] [address] [place] [address] Faith Peters MD from Last 3 Months Immunizations Immunization Administration [...] 80 01/18/2025 8:49 AM EDT Temperature 36.4 C (97.6 F) 01/18/2025 8:49 AM EDT Respiratory Rate 18 01/18/2025 8:49 AM EDT Oxygen Saturation 97% 01/18/2025 8:49 AM EDT Inhaled Oxygen Concentration - - Weight 95.3 kg (210 lb) 01/18/2025 8:49 AM EDT Height 167.6 cm (5' 6 ) 01/18/2025 8:49 AM EDT Body Mass Index 33.89 01/18/2025 8:49 AM EDT Plan of Treatment Upcoming Encounters Date Type Department Care Team (Late st Contact Info) Description 04/12/2025 2:00 PM EDT Office Visit [facility] [address] [place], [place] [phone] Xavier Solis Health Maintenance Due Date Last Done Comments CT Colonography 1975 FIT DNA/Cologuard 1975 FIT 1975 FOBT 1975 Sigmoidoscopy 1975 Family Planning (PISQ) 1990 Hepatitis B Vaccines (1 of 3 - 19+ 3-dose series) 1994 Mammogram 04/22/2024 04/22/2023, 06/0 03/2021, 08/08/2019, Additional history exists Dental Oral Exam 01/09/2025 07/11/2024 Dental Prophylaxis 01/10/2025 10/12/2024, 1 09/10/2023, 08/28/2022 Zoster Vaccines (1 of 2) 2025 Influenza Vaccine (#1) 2025 , 09/19/2022, 07/03/2021, Additional history exists COVID-19 Vaccine ( season) 2025 10/10/2021, 10/10/2021, 02/14/2021, Additional history exists Postponed from 05/01/2024 (Patient Refused) Dental X-Ray: Bitewings 07/12/2025 07/11/2024 SDOH Screening 01/09/2026 01/09/2025 Alcohol/Substance Use Screening 01/18/2026 01/18/2025 Depression Screening 01/18/2026 01/18/2025, 01/19/20 25 Disability Screening 01/18/2026 01/18/2025 Tobacco Screening 01/18/2026 01/18/2025 Dental X-Ray: Full Mouth 08/18/2027 08/17/2024 Colonoscopy 03/12/2028 Colorectal Cancer Screening 03/12/2028 Lipid Panel 01/18/2030 01/18/2025, 10/02, 06/21/2024, Additional history exists DTaP/Tdap/Td Vaccines (3 - Td or Tdap) 06/21/2034 06/21/2024, 07/14/2012 RSV Patients and Patients Aged 60 years or older (1 - 1-dose 75+ series) 2050 HIV Screening Completed 07/05/2020, 10/31/2019 Hepatitis C Screening Completed 07/05/2020 Pap Smear Discontinued 10/15/2021, 09/20/2020 Cervical Cancer Screening Discontinued HPV/Cotest Discontinued 03/27/2022, 03/01, 10/15/2021, Additional history exists HIB Vaccines Aged Out [...] Years) and At-Risk Patients (6 to 49) Years Aged Out No longer eligible based on patient's age to complete this topic RSV under 20 months Aged Out No longe r eligible based on patient's age to complete this topic Rotavirus Vaccines Aged Out No longer eligible based on patient's age to complete this topic Procedures Procedure Name Priority Date/Time Associated Diagnosis Comments TSH W/REFLEX TO FT4 Routine 01/18/2025 9 :16 AM EDT Primary hypertension Hypothyroidism, unspecified type HEPATIC FUNCTION PANEL Routine 01/18/2025 9:16 AM EDT Primary hypertension LIPID PANEL, STANDARD Routine 01/18/2025 9:16 AM EDT Primary hypertension Hypothyroidism, unspecified type BASIC METABOLIC PANEL Routine 01/18/2025 9:16 AM EDT Primary hypertension PROPHYLAXIS - ADULT Routine 10/12/2024 2 :30 [...] Recently Relevant to Health Maintenance Results * TSH with Reflex to Free T4 (01/18/2025 9:16 AM EDT) TSH reflex Free T4 0.36 0.32 - 4.0 uIU/mL [facility] Blood Venous blood specimen / Unknown 01/18/2025 9:16 AM EDT 01/18/2025 2:08 PM EDT us Faith Peters MD LAB BLOOD ORDERABLES Final Resul t [facility] [address] [place] [address] [phone] * Hepatic Function Panel (01/18/2025 9:16 AM EDT) Bilirubin, Total 0.5 0.0 - 1.0 mg/dL [facility] Bilirubin, Direct 0.2 0.0 - 0.5 mg/dL [facility] Aspartate Amino Transferase 23 5 - 31 U/L [facility] Alanine Aminotransferase 15 0 - 31 U/L [facility] Total Protein 8.0 6.5 - 8.0 g/dL [facility] Albumin Level 3.9 3.5 - 5.0 g/dL [facility] Alkaline Phosphatase 71 39 - 117 U/L [facility] Blood Venous blood specimen / Unknown 01/18/2025 9:16 AM EDT 01/18/2025 2:08 PM EDT Faith Peters MD LAB BLOOD ORDERABLES Final Resul t Performing Organization Address [facility] de Phone Number [facility] [address] [place] [phone] * (ABNORMAL) Lipid Panel, Standard (01/18/2025 9:16 AM EDT) Triglycerides 115 <150 mg/dL [facility] Comment:Desirable Triglyceri de: less than 150 mg/dLBorderline High Triglyceride 150-199 mg/dLHigh Triglyceride: 200-499 mg/dLVery High Triglyceride: greater than or equal to 5OO mg/dL Cholesterol 186 <200 mg/dL [facility] Comment:Desirable Cholestero l: less than 200 mg/dLBorderline High Cholesterol: 200-239 mg/dLHigh Cholesterol: greater than 239 mg/dL LDL Cholesterol Calculated 122(H) <100 mg/dL [facility] Comment:Desirable LDL: less than 100 mg/dLNear Optimal/Above Optimal LDL: 110- 129 mg/dLBorderline High LDL: 130-159 mg/dLHigh LDL: 160-189 mg/dLVery High LDL: greater than or equal to 190 mg/dL HDL Cholesterol 41 >40 mg/dL [facility] Comment:Desirable HDL: great er than 40 mg/dL Note: This HDL assay may give artificially low results in patients with liver disease. Blood Venous blood specimen / Unknown 01/18/2025 9:16 AM EDT 01/18/2025 2:08 PM EDT Faith Peters MD LAB BLOOD ORDERABLES Final Resul t Performing Organization Address [facility] Co de Phone Number [facility] [address] [place] [phone] * (ABNORMAL) Basic Metabolic Panel (01/18/2025 9:16 AM EDT) Sodium 138 135 - 145 mmol/L [facility] Potassium 4.1 3.3 - 5.1 mmol/L [facility] Chloride 103 96 - 108 mmol/L [facility] Carbon Dioxide 29 22 - 29 mmol/L [facility] Anion Gap 10(L) 12 - 20 [facility] Urea Nitrogen (BUN) 15 9 - 16 mg/dL [facility] Creatinine, Serum 0.60 0.5 - 1.4 mg/dL [facility] Estimated Glomerular Filt Rate >60 [facility] Comment:Chronic Kidney Disea se: Estimated GFR < 60 mL/min/1.36m4Xflphw Kidney Disease: Estimated GFR < 15 mL/min/1.73m2 Glucose 93 60 - 115 mg/dL [facility] Calcium 9.1 8.4 - 10.2 mg/dL [facility] Blood Venous blood specimen / Unknown 01/18/2025 9:16 AM EDT 01/18/2025 2:08 PM EDT us Faith Peters MD LAB BLOOD ORDERABLES Final Resul t [facility] [address] [place] [phone] * BI Mammogram Screening Tomosynthesis Bilateral (04/22/2023 8:49 AM EDT) Anatomical Region Laterality Modality Breast Bilateral Mammography 04/22/2023 8:49 AM EDT Narrative 05/08/2023 10:49 AM EDT [facility] [address] 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 [place], [place] [address] Mammography Report Signed Patient: Hilda BanerjeeMR#: [id number] : 1975Acct:[id number] Age/Sex: 48 / FADM Date: 04/22/23 Loc: HO.MAMMO Attending Dr: Faith Peters MD Ordering Physician: Faith Peters MDResults: 2Benign Findings Date of Service: 04/22/23Follow Up: 1 Year From Orig inal Mammogram Procedure(s): MM tomosynthesis screening BI Accession Number(s): [id number] cc: Faith Peters MD EXAMINATION: MM SCREENING DIGITAL BREAST TOMOSYNTHESIS, BILATERAL CLINICAL INFORMATION: Screening. Asymptomatic. COMPARISON: Mammography: 04/15/2022, and studies dating back to 2012. TECHNIQUE: Digital breast tomosynthesis is performed in [...] in OV> 05/08/23 1045 DD/ 0849 TD/TT: Assembler Truck Trailer: Faith Peters MD IMG BI PROCEDURES Edited Result - Final * HPV E6/E7 RFLX GREGORIA 16 18/45 (03/27/2022 12:12 PM EDT) HPV 16 RNA [facility]NP [facility] HPV 18/45 RNA [facility]NP [facility] HPV E6 E7 ADD TNP [facility] HPV mRNA E6/E7 rflx Not Detected Not Detected [facility] Comment: Methodology: Retention Representative-Mediated Amplification This assay detects E6/E7 viral messenger RNA (mRNA) from 14 high-risk HPV types (16,18,31,33,35,39,45,51,52,56,58,59,66,68). Cervical sources are required for HPV testing. If a vaginal source from a patient who has had a total hysterectomy with removal of cervix was submitted, please contact the testing laboratory for alternative testing options. For additional information, please refer to http://[employer]/faq/FAC153r7 (This link if provided for information/ educational purposes only.) THIS TEST WAS PERFORMED AT: [facility] [address] [place] [address] [facility] [phone] STEFFANIE MCDOWELL MD 03/27/2022 12:1 2 PM EDT Roberto Hinojosa MD HISTORICAL/NON ORDERABLE LABS Fi nal Result [facility] [address] [place] [address], * THINPREP TIS PAP AND HPV mRNA E6/E7, CT/NG, TRICH (10/15/2021 11:08 AM EST) Chlamydia trachomatis RNA, TMA, Urogenital NOT DETECTED NOT DETECTED [facility] Clinical Information: None given [facility] COMMENT SEE COMMENT [facility] Comment: The analytical performance characteristics of this assay, when used to test SurePath(TM) specimens have been determined by [employer]. The modifications have not been cleared or approved by the FDA. This assay has been validated pursuant to the CLIA regulations and is used for clinical purposes. For additional information, please refer to https://[employer]/faq/GNJ839 (This link is being provided for information/ educational purposes only.) COMMENT SEE COMMENT [facility] Comment: EXPLANATORY NOTE: The Pap is a screening test for cervical cancer. It is not a diagnostic test and is subject to false negative and false positive results. It is most reliable when a satisfactory sample, regularly obtained, is submitted with relevant clinical findings and history, and when the Pap result is evaluated along with historic and current clinical information. COMMENT: This Pap test has been evaluated with computer assisted technology. [facility] Public Improvement Inspector: SEE COMMENT [facility] Comment: MSM, CT(ASCP) CT screening location: [facility] [address] [address] HPV nRNA E6/E7 Not Detected Not Detected [facility] Comment: Methodology: Retention Representative-Mediated Amplification This assay detects E6/E7 viral messenger RNA (mRNA) from 14 high-risk HPV types (16,18,31,33,35,39,45,51,52,56,58,59,66,68). The analytical performance characteristics of this assay have been determined by [employer]. The modifications have not been cleared or approved by the FDA. This assay has been validated pursuant to the CLIA regulations and is used for clinical purposes. For additional information, please refer to http://[employer]/faq/BWG623o4 (This link if provided for information/ educational purposes only.) Interpretation/Re sult: Negative for intraepithelial lesion or malignancy. [facility] LMP: 10/07/21 [facility] Neisseria gonorrhoeae RNA, TMA, Urogenital NOT DETECTED NOT DETECTED [facility] Prev. BX: NONE GIVEN [facility] Prev. PAP: HX ASCUS HPV 2019 CIN1 COLPO [facility] Review Public Improvement Inspector: SEE COMMENT [facility] Comment: RMM, CT(ASCP) CT screening location: [place] [address] SOURCE: None given [facility] Statement Of Adequacy: SEE COMMENT [facility] Comment: Satisfactory for evaluation. Endocervical/transformation zone component present. Partially obscuring blood Trichomonas vaginalis, QL, TMA, PAP Vial NOT DETECTED NOT DETECTED [facility] Comment: The analytical performance characteristics of this assay have been determined by [employer]. The modifications have not been cleared or approved by the FDA. This assay has been validated pursuant to the CLIA regulations and is used for clinical purposes. For additional information, please refer to http://[email or web address]/ faq/Trichomonastma (This link is being provided for information/ educational purposes only.) 10/15/2021 11:0 8 AM EST us Meli William CNM LAB PATHOLOGY ORDERABLES Final Result [facility] [address] [place] [address], * HEPATITIS C AB W/REFL TO HCV RNA, QN, PCR (07/05/2020 4:07 PM EST) HEPATITIS C ANTIBODY NON-REACT DELMI NON-REACT DELMI [facility] INDEX 0.04 <1.00 [facility] Comment: HCV antibody was non-reactive. There is no laboratory evidence of HCV infection. In most cases, no further action is required. However, if recent HCV exposure is suspected, a test for HCV RNA (test code 59211) is suggested. For additional information please refer to http://[employer]/faq/JSV32g6 (This link is being provided for informational/ educational purposes only.) HEPATITIS C ANTIBODY NON-REACT DELMI NON-REACT DELMI [facility] INDEX 0.04 <1.00 [facility] Comment: HCV antibody was non-reactive. There is no laboratory evidence of HCV infection. In most cases, no further action is required. However, if recent HCV exposure is suspected, a test for HCV RNA (test code 66218) is suggested. For additional information please refer to http://[employer]/faq/IVV07c2 (This link is being provided for informational/ educational purposes only.) HEPATITIS C ANTIBODY NON-REACT DELMI NON-REACT DELMI [facility] INDEX 0.04 <1.00 [facility] Comment: HCV antibody was non-reactive. There is no laboratory evidence of HCV infection. In most cases, no further action is required. However, if recent HCV exposure is suspected, a test for HCV RNA (test code 88949) is suggested. For additional information please refer to http://[employer]/faq/TQV64l2 (This link is being provided for informational/ educational purposes only.) 07/05/2020 4:07 PM EST us Quique Weinberg MD HISTORICAL/NON ORDERABLE LABS Fi nal Result [facility] [address] * HIV 1/2 ANTIGEN/ANTIBODY,FOURTH GENERATION W/RFL (07/05/2020 4:07 PM EST) HIV-1/2 ANTIGEN AND ANTIBODIES, 4TH GENERATION W/ REFLEX NON-REACT DELMI NON-REACT DELMI [facility] Comment: HIV-1 antigen and HIV-1/HIV-2 antibodies were not detected. There is no laboratory evidence of HIV infection. PLEASE NOTE: This information has been disclosed to you from records whose confidentiality may be protected by state law. If your state requires such protection, then the state law prohibits you from making any further disclosure of the information without the specific written consent of the person to whom it pertains, or as otherwise permitted by law. A general authorization for the release of medical or other information is NOT sufficient for this purpose. For additional information please refer to http://[employer]/faq/BZE732 (This link is being provided for informational/ educational purposes only.) The performance of this assay has not been clinically validated in patients less than 2 years old. HIV-1/2 ANTIGEN AND ANTIBODIES, 4TH GENERATION W/ REFLEX NON-REACT DELMI NON-REACT DELMI [facility] Comment: HIV-1 antigen and HIV-1/HIV-2 antibodies were not detected. There is no laboratory evidence of HIV infection. PLEASE NOTE: This information has been disclosed to you from records whose confidentiality may be protected by state law. If your state requires such protection, then the state law prohibits you from making any further disclosure of the information without the specific written consent of the person to whom it pertains, or as otherwise permitted by law. A general authorization for the release of medical or other information is NOT sufficient for this purpose. For additional information please refer to http://[employer]/faq/LPS859 (This link is being provided for informational/ educational purposes only.) The performance of this assay has not been clinically validated in patients less than 2 years old. HIV-1/2 ANTIGEN AND ANTIBODIES, 4TH GENERATION W/ REFLEX NON-REACT DELMI NON-REACT DELMI [facility] Comment: HIV-1 antigen and HIV-1/HIV-2 antibodies were not detected. There is no laboratory evidence of HIV infection. PLEASE NOTE: This information has been disclosed to you from records whose confidentiality may be protected by state law. If your state requires such protection, then the state law prohibits you from making any further disclosure of the information without the specific written consent of the person to whom it pertains, or as otherwise permitted by law. A general authorization for the release of medical or other information is NOT sufficient for this purpose. For additional information please refer to http://education.[employer]/faq/GAE481 (This link is being provided for informational/ educational purposes only.) The performance of this assay has not been clinically validated in patients less than 2 years old. 07/05/2020 4:07 PM EST us Quique Weinberg MD LAB BLOOD ORDERABLES Final Resul t [facility] [address] from Last 3 Months or Most Recently Relevant to Health Maintenance Insurance [facility] , [address] [place] [address] [facility] Care Teams Automatic Log Cut Off Sawyer Relationship Specialty Start Date End Date Faith Peters MD [address] [place] [phone] PCP - General Family Medicine 09/06/13
== END 2025-03-15 15:05 | disposition home or self-care (01) ==
PROVIDERS: PCP Student in an Organized Health Care Education/Training Program; Visit Provider Physician Assistant
DX: H69.92 Unspecified Eustachian tube disorder, left ear (principal)

== ENCOUNTER 2025-05-29 09:08 | Outpatient (AMB) | payer OTHER, SELFPAY ==
--- NOTE | 2025-05-29 09:10 | A.OFFVIS_ITS ---
Vital Signs 05/29/25 09:11 Height 5 ft 6 in Weight 204 lb 2.369 oz BMI 32.9 BP 120/70 Blood Pressure Location Lt brachial Position Sitting Pulse 72 Pulse Source Monitor Intake Visit Reasons: 4 mth f/up Accompanied by: Self / Same As Patient Allergies azithromycin Allergy (Unknown, Verified 05/29/25 09:14) Hives erythromycin base (ERYTHROMYCIN BASE) Allergy (Unknown, Verified 05/29/25 09:14) Hives, redness Medication List - Last Reconciled 05/29/25 by Bladimir Appiah MD adalimumab-adaz (Hyrimoz Pen) 40 mg subcut QWEEK evybxqem-bkexaj-aefklpdz acid 500 mg-800 mcg- 50 mg (Collagen 1500 Plus C) 1 cap PO DAILY fluoxetine 10 mg PO DAILY levothyroxine (Synthroid) 150 mcg PO DAILY lisinopril-hydrochlorothiazide 20-25 mg 1 tab PO DAILY methotrexate sodium 12.5 mg PO QWEEK HPI Comments Details: Pleasant 50-year-old female who is here for perioperative cardiovascular risk assessment. She has been experiencing menorrhagia and developed iron deficiency anemia. She has been experiencing palpitations, burning chest pains, fatigue and shortness of breath. She has been on iron supplements which has improved her symptoms. She had iron saturation of 7% in January 2022. She has been to the emergency department with burning chest discomfort and has been ruled out. Her EKG has not shown any dynamic changes. Her symptoms have improved with iron supplementation at this stage. She has no history of hypertension and has been on medications for that and with good blood pressure control. She is here because she needs potentially removal of fibroids. She has some palpitations off and on and the happening every other day. She does feels that her heart is skipping a beat. Her daughter has atrial fibrillation. 06/17/23: She returns for follow-up. She had echocardiography in May 2022 which showed normal biventricular function with mild ascending aorta dilatation at 3.3 cm. She also had Holter monitor which showed rare supraventricular ectopy. She is complaining of rare palpitations. They also last for few seconds. She is not bothered by them. She had rheumatoid arthritis flare and has been on prednisone. She is saying that sometimes she gets palpitations after taking fluoxetine. I have explained the echocardiography and Holter result to her. 09/05/24: She is here for f/u. She has lipid panel and her ldl is 136. she has been trying to eat healthier and is seeing a dietecian. We discussed about starting statins for elevated ldl. She wishes to exercise and change diet. 01/11/2025: She is here for follow-up. She underwent coronary calcium score which was 0. She continues to have atypical sharp chest pains which last for 1- 2 seconds. Blood pressure control is good. Overall she has been doing well. 05/29/2025: She is here for follow-up. She has been experiencing some chest discomfort off and on. She is going through a separation from her and he is saying that this is emotionally quite challenging for her. When she is stressed she gets chest pain. During activities she has no symptoms as before. [facility] Medical History (Updated 03/15/25 @ 14:48 by Bushra Pathak PA-C) Uterine cancer Dysplasia of cervix, low grade (MATHEW 1) HTN (hypertension) Rheumatoid arthritis Hypothyroid Surgical History Hx of colonoscopy H/O: hysterectomy History of hysteroscopy History of placement of ear tubes Family History Father Colon cancer Mother Stroke Social History Household Members: Significant Other Housing: Apartment Are you a primary medicare interviewer to a significant other at home: No Do you presently have visiting nurse or other home services: No Alcohol intake: current Alcohol intake frequency: holidays/special occasions only Patient Tobacco Use Status: Never used Tobacco Current occupational status: employed Gender identity: Female Female Reproductive History Menstrual Age of Menarche: 11 Review of Systems Const Denies daytime sleepiness, Denies difficulty sleeping, Denies snoring, Denies stops breathing during sleep and Denies weakness Card Reports chest pain, Denies rapid heart rate, Denies irregular heart rhythm, De nies claudication, Denies leg edema, Denies lightheadedness, Denies palpitations, Denies dyspnea, Denies dyspnea on exertion, Denies orthopnea, Denies paroxysmal nocturnal dyspnea and Denies slow heart rate Resp Denies cough, Denies dyspnea, Denies dyspnea on exertion and Denies snoring GI Reports no additional complaints, Denies hematochezia, Denies change in stool character and Denies dyspepsia Musc Denies abnormal gait, Denies muscle weakness and Denies numbness Neuro Denies abnormal gait, Denies numbness and Denies weakness Endo Denies palpitations Physical Exam Vital Signs: Last Vital Signs Pulse 76 05/29/25 09:11 BP 120/70 05/29/25 09:11 BMI result Body Mass Index 32.9 GENERAL APPEARANCE: in no acute distress, pleasant. NECK: no carotid bruit, no jugular venous distention. SKIN: no suspicious lesions, warm and dry. HEART: no murmurs, regular rate and rhythm. LUNGS: clear to auscultation bilaterally. ABDOMEN: soft, nontender. EXTREMITIES: no edema. PERIPHERAL PULSES: equal. NEUROLOGIC: No gross deficits, AAO X 3 Office Procedures EKG Details: Sinus rhythm 72 beats per minute, normal axis, nonspecific T-wave changes, QTC 448 milliseconds. [id number], Complete Assessment & Plan Assessment & Plan (1) HTN (hypertension): Code(s): I10 - Essential (primary) hypertension Category: Medical (2) Hyperlipidemia: Code(s): E78.5 - Hyperlipidemia, unspecified Category: Medical Plan Pleasant 50-year-old female who is here for follow-up. She has background history of rheumatoid arthritis, hypertension and hyperlipidemia. Blood pressure control is good. Her coronary calcium score is 0. Previously LDL was 103. We will repeat it in December and was 122. She is under lot of stress due to separation from her currently. We will repeat it in 3 months and decide about statins. Noncardiac chest pains currently which I have reassured her about. She will follow up with us in few months. Thank you for allowing me to participate in the care of your patient. Please feel free to contact me if you have any questions. Orders: Orders Lipid Panel Today E78.5 - Hyperlipidemia, unspecified Coding Level of Care Code Est Pt Level 4 (39517) Diagnoses HTN (hypertension) I10 Hyperlipidemia E78.5 CPT Codes EKG - CPT: 75590-Yrbpmzrwuohwiybwa, Complete ([id number])
[2025-05-29 09:11] VITALS: BP 120/70; PULSE 72; BMI 32.9
--- OUTSIDE RECORDS SUMMARY | 2025-05-29 09:49 | XMS_ITS | Clinical Summary ---
Author Organization [employer] Address [address] [facility] [address] [place] [address] Care Team Providers Care Online Education Manager Name Role Phone Faith Peters MD Primary Care Provider [phone] Allergies Active Allergy Reactions Criticality Noted Date [...] 30 minutes following use. 473 mL Active methotrexate 2.5 MG tablet Active folic acid (Folvite) 1 MG tablet Take 1 tablet by mouth Once per day. 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 Rheumatoid arthritis (CMS/HCC) 08/31/1999 Hypothyroidism 08/31/1986 Resolved Problems Problem Noted Date Diagnosed Date Resolved Date Acute chest wall pain 06/21/20242023 Chest pain 06/21/2024 06/21/2024 Musculoskeletal pain 06/21/2024 024 Preop cardiovascular exam 06/21/2024 Encounters Date Type Department Care Team Description 05/18/2025 8:00 AM EDT Office Visit [facility] [address] [place] [address] Nati Penn DDS 05/11/2025 Travel 05/05/2025 8:00 AM EDT Office Visit [facility] [address] [place] [address] Xavier Solis 04/28/2025 Travel 03/15/2025 Telephone [facility] [address] [place] [address] Faith Peters MD Nurse Triage from Last 3 Months Immunizations Immunization Administration [...] Sign Reading Time Taken Comments Blood Pressure 100/80 05/18/2025 8:14 AM EDT Pulse 70 05/05/2025 8:06 AM EDT Temperature 36.4 C (97.6 F) [...] Care Team (Late st Contact Info) Description 11/03/2025 8:00 AM EST Office Visit [facility] [address] [place] [address] Xavier Solis Health Maintenance Due Date Last Done Comments CT Colonography 1975 FIT DNA/Cologuard 1975 FIT 1975 FOBT 1975 Sigmoidoscopy 1975 Family Planning (PISQ) 1990 Hepatitis B Vaccines (1 of 3 - 19+ 3-dose series) 1994 Mammogram 04/22/2024 04/22/2023, 06/0 03/2021, 08/08/2019, Additional history exists Dental Oral Exam 01/09/2025 07/11/2024 Pneumococcal Vaccine: 50+ Years (1 of 1 - PCV) 2025 Zoster Vaccines (1 of 2) 2025 COVID-19 Vaccine (5 - 2024- season) 2025 10/10/2021, 10/10/2021, 02/14/2021, Additional history exists Influenza Vaccine (#1) 2025 , 09/19/2022, 07/03/2021, Additional history exists Dental X-Ray: Bitewings 07/12/2025 07/11/2024 Dental Prophylaxis 08/05/2025 05/05/2025, 0 10/12/2024, 07/11/2024, Additional history exists SDOH Screening 01/09/2026 01/09/2025 Alcohol/Substance Use Screening 01/18/2026 01/18/2025 Depression Screening 01/18/2026 01/18/2025, 01/19/20 25 Disability Screening 01/18/2026 01/18/2025 Tobacco Screening 05/18/2026 05/18/2025 Dental X-Ray: Full Mouth 08/18/2027 08/17/2024 Colonoscopy 03/12/2028 03/12/2023 Colorectal Cancer Screening 03/12/2028 Lipid Panel 01/18/2030 [...] Procedure Name Priority Date/Time Associated Diagnosis Comments 30 O RESIN-BASED COMPOSITE - 1 SURF, POSTERIOR Routine 05/18/2025 8:00 AM EDT COMPREHENSIVE PERIODONTAL EVALUATION - NEW OR ESTABLISHED PATIENT Routine 05/05/2025 8:00 AM EDT ORAL HYGIENE INSTRUCTIONS Routine 05/05/2025 8:00 AM EDT PROPHYLAXIS - ADULT Routine 05/05/2025 8 :00 AM EDT CASE PRESENTATION, DETAILED AND EXTENSIVE TREATMENT PLANNING Routine 05/05/2025 8:00 AM EDT 17 O AMALGAM FILLING Routine 05/05/2025 12:00 AM EDT LIPID PANEL, STANDARD Routine 01/18/2025 9:16 AM EDT Primary hypertension Hypothyroidism, unspecified type PANORAMIC RADIOGRAPHIC IMAGE Routine 08/17/2024 9:30 AM EST Malocclusion Dental caries BITEWINGS - 4 RADIOGRAPHIC IMAGES Routine 07/11/2024 8:00 AM EST Dental caries Gingivitis PERIODIC ORAL EVALUATION - ESTABLISHED PATIENT Routine 07/11/2024 8:00 AM EST Dental caries Gingivitis BI MAMMOGRAM SCREENING TOMOSYNTHESIS BILATERAL Routine 04/22/2023 8:49 AM EDT HM COLONOSCOPY Routine 03/12/2023 ZZZ HISTORICAL HPV E6/E7 RFLX GREGORIA 16 [...] Maintenance Results * (ABNORMAL) Lipid Panel, Standard (01/18/2025 9:16 AM EDT) Triglycerides 115 <150 mg/dL [facility] Comment:Desirable Triglyceri de: less than 150 mg/dLBorderline High Triglyceride 150-199 mg/dLHigh Triglyceride: 200-499 mg/dLVery High Triglyceride: greater than or equal to 5OO mg/dL Cholesterol 186 <200 mg/dL [facility] Comment:Desirable Cholestero l: less than 200 mg/dLBorderline High Cholesterol: 200-239 mg/dLHigh Cholesterol: greater than 239 mg/dL LDL Cholesterol Calculated 122(H) <100 mg/dL [facility] Comment:Desirable LDL: less than 100 mg/dLNear Optimal/Above Optimal LDL: 110- 129 mg/dLBorderline High LDL: 130-159 mg/dLHigh LDL: 160-189 mg/dLVery High LDL: greater than or equal to 190 mg/dL HDL Cholesterol 41 >40 mg/dL [facility] Comment:Desirable HDL: great er than 40 mg/dL Note: This HDL assay may give artificially low results in patients with liver disease. Blood Venous blood specimen / Unknown 01/18/2025 9:16 AM EDT 01/18/2025 2:08 PM EDT us Faith Peters MD LAB BLOOD ORDERABLES Final Resul t [facility] [address] [place] [address] [phone] * BI Mammogram Screening Tomosynthesis Bilateral (04/22/2023 8:49 AM EDT) Anatomical Region Laterality Modality Breast Bilateral Mammography 04/22/2023 8:49 AM EDT Narrative 05/08/2023 10:49 AM EDT [address] [place] [address] Mammography Report Signed Patient: Hilda Banerjee MR#: [id number] : 1975 Acct:[id number] Age/Sex: 48 / F ADM Date: 04/22/23 Loc: HO.MAMMO Attending Dr: Faith Peters MD Ordering Physician: Faith Peters MD Results: 2Benign Findings Date of Service: 04/22/23 Follow Up: 1 Year From Orig ina Mammogram Procedure(s): MM tomosynthesis screening BI Accession Number(s): [id number] cc: Faith Peters MD EXAMINATION: MM SCREENING [...] in OV> 05/08/23 1045 DD/ 0849 TD/TT: Vacation Sales Advisor: Procedure Note Donotuseinterpreter, Image - 05/11/[address] [place] [address] Mammography Report Signed Patient: Hilda BanerjeeMR#: [id number] : 1975Acct:[id number] Age/Sex: 48 / FADM Date: 04/22/23 Loc: HO.MAMMO Attending Dr: Faith Peters MD Ordering Physician: Faith Peters MDResults: 2Benign Findings Date of Service: 04/22/23Follow Up: 1 Year From Orig inal Mammogram Procedure(s): MM tomosynthesis screening BI Accession Number(s): [id number] cc: Faith Peters MD EXAMINATION: MM SCREENING [...] in OV> 05/08/23 1045 DD/ 0849 TD/TT: Vacation Sales Advisor: Faith Peters MD IMG BI PROCEDURES Edited Result - Final * Colonoscopy (03/12/2023) Colonoscopy Normal Normal Narrative Janay Guillen - 03/12/2023 Colonoscopy order added Historical Provider MD HEALTH MAINTENANCE Final Result * HPV E6/E7 RFLX GREGORIA 16 18/45 (03/27/2022 12:12 PM EDT) HPV 16 RNA TNP [facility] HPV 18/45 RNA [facility] HPV E6 E7 ADD [facility] HPV mRNA E6/E7 rflx Not Detected Not Detected [facility] Comment: Methodology: Industrial Safety Engineer-Mediated Amplification This assay detects E6/E7 viral messenger RNA (mRNA) from 14 high-risk HPV types (16,18,31,33,35,39,45,51,52,56,58,59,66,68). Cervical sources are required for HPV testing. If a vaginal source from a patient who has had a total hysterectomy with removal of cervix was submitted, please contact the testing laboratory for alternative testing options. For additional information, please refer to http://ecobee/faq/QVA752l2 (This link if provided for information/ educational purposes only.) THIS TEST WAS PERFORMED AT: [facility] [address] [place] [address] [address] [address] STEFFANIE MCDOWELL MD 03/27/2022 12:1 2 PM EDT Roberto Hinojosa MD HISTORICAL/NON ORDERABLE LABS Fi nal Result [facility] [address] * THINPREP TIS PAP AND HPV mRNA E6/E7, CT/NG, TRICH (10/15/2021 11:08 AM EST) Chlamydia trachomatis RNA, TMA, Urogenital NOT DETECTED NOT DETECTED [facility] Clinical Information: None given [facility] COMMENT SEE COMMENT [facility] Comment: The analytical performance characteristics of this assay, when used to test SurePath(TM) specimens have been determined by [employer]. The modifications have not been cleared or approved by the FDA. This assay has been validated pursuant to the CLIA regulations and is used for clinical purposes. For additional information, please refer to https://Tilt.[employer]/faq/TAA289 (This link is being provided for information/ [...] has been evaluated with computer assisted technology. [facility] Housing Assistant Property Manager: SEE COMMENT [facility] Comment: [facility], [place](ASCP) CT screening location: [place] [address] HPV nRNA E6/E7 Not Detected Not Detected [facility] Comment: Methodology: Industrial Safety Engineer-Mediated Amplification This assay detects E6/E7 viral messenger RNA (mRNA) from 14 high-risk HPV types (16,18,31,33,35,39,45,51,52,56,58,59,66,68). The analytical performance characteristics of this assay have been determined by [employer]. The modifications have not been cleared or approved by the FDA. This assay has been validated pursuant to the CLIA regulations and is used for clinical purposes. For additional information, please refer to http://education.[employer]/faq/XFH661u7 (This link if provided for information/ educational purposes only.) Interpretation/Re sult: Negative for intraepithelial lesion or malignancy. [facility] LMP: 10/07/21 [facility] Neisseria gonorrhoeae RNA, TMA, Urogenital NOT DETECTED NOT DETECTED [facility] Prev. BX: NONE GIVEN [facility] Prev. PAP: HX ASCUS HPV 2019 CIN1 COLPO [facility] Review Housing Assistant Property Manager: SEE COMMENT [facility] Comment: RMM, CT(ASCP) CT screening location: [place] [address] SOURCE: None given [facility] Statement Of Adequacy: SEE COMMENT [facility] Comment: Satisfactory for evaluation. Endocervical/transformation zone component present. Partially obscuring blood Trichomonas vaginalis, QL, TMA, PAP Vial NOT DETECTED NOT DETECTED [facility] Comment: The analytical performance characteristics of this assay have been determined by [facility]. The modifications have not been cleared or approved by the FDA. This assay has been validated pursuant to the CLIA regulations and is used for clinical purposes. For additional information, please refer to http://Tilt.[employer]/ faq/Trichomonastma (This link is being provided for information/ educational purposes only.) 10/15/2021 11:0 8 AM EST Meli GANDHI LAB PATHOLOGY ORDERABLES Final Result [facility] [address] * HEPATITIS C AB W/REFL TO HCV RNA, QN, PCR (07/05/2020 4:07 PM EST) HEPATITIS C ANTIBODY NON-REACT DELMI NON-REACT DELMI [facility] INDEX 0.04 <1.00 [facility] Comment: HCV antibody was non-reactive. There is no laboratory evidence of HCV infection. In most cases, no further action is required. However, if recent HCV exposure is suspected, a test for HCV RNA (test code 23379) is suggested. For additional information please refer to http://Tilt.[employer]/faq/JGD38h8 (This link is being provided for informational/ educational purposes only.) HEPATITIS C ANTIBODY NON-REACT DELMI NON-REACT DELMI [facility] INDEX 0.04 <1.00 [facility] Comment: HCV antibody was non-reactive. There is no laboratory evidence of HCV infection. In most cases, no further action is required. However, if recent HCV exposure is suspected, a test for HCV RNA (test code 12129) is suggested. For additional information please refer to http://Tilt.[employer]/faq/COQ87e0 (This link is being provided for informational/ educational purposes only.) HEPATITIS C ANTIBODY NON-REACT DELMI NON-REACT DELMI [facility] INDEX 0.04 <1.00 [facility] Comment: HCV antibody was non-reactive. There is no laboratory evidence of HCV infection. In most cases, no further action is required. However, if recent HCV exposure is suspected, a test for HCV RNA (test code 42040) is suggested. For additional information please refer to http://Tilt.[employer]/faq/APY56y3 (This link is being provided for informational/ educational purposes only.) 07/05/2020 4:07 PM EST us Quique Weinberg MD HISTORICAL/NON ORDERABLE LABS Fi nal Result [facility] [address] * HIV 1/2 ANTIGEN/ANTIBODY,FOURTH GENERATION W/RFL (07/05/2020 4:07 PM EST) HIV-1/2 ANTIGEN AND ANTIBODIES, 4TH GENERATION W/ REFLEX NON-REACT DELMI NON-REACT DELMI [facility] Comment: HIV-1 antigen and HIV-1/HIV-2 [...] purpose. For additional information please refer to http://ecobee/faq/PVK022 (This link is being provided for informational/ educational purposes only.) The performance of this assay has not been clinically validated in patients less than 2 years old. HIV-1/2 ANTIGEN AND ANTIBODIES, 4TH GENERATION W/ REFLEX NON-REACT DELMI NON-REACT DELMI [facility] Comment: HIV-1 antigen and HIV-1/HIV-2 [...] purpose. For additional information please refer to http://Tilt.[employer]/faq/DYG217 (This link is being provided for informational/ educational purposes only.) The performance of this assay has not been clinically validated in patients less than 2 years old. HIV-1/2 ANTIGEN AND ANTIBODIES, 4TH GENERATION W/ REFLEX NON-REACT DELMI NON-REACT DELMI [facility] Comment: HIV-1 antigen and HIV-1/HIV-2 [...] purpose. For additional information please refer to http://Tilt.[employer]/faq/PUR234 (This link is being provided for informational/ educational purposes only.) The performance of this assay has not been clinically validated in patients less than 2 years old. 07/05/2020 4:07 PM EST us Quique Weinberg MD LAB BLOOD ORDERABLES Final Resul t Performing Organization Address City/State/[facility] Co de Phone Number [facility] [address] from Last 3 Months or Most Recently Relevant to Health Maintenance Insurance [facility] [address] [place] [address] [facility] Care Teams Online Education Manager Relationship Specialty Start Date End Date Faith Peters MD [address] [place] [id number] PCP - General Family Medicine 09/06/13
--- OUTSIDE RECORDS SUMMARY | 2025-05-29 09:49 | XMS_ITS | Encounter Summary ---
Author Organization [employer] Address [address] [facility] [address] [place] [address] Care Team Providers Care Vest Backer Name Role Phone Faith Peters MD Primary Care Provider [phone] Reason for Visit * Reason Onset Date Comments Results 06/23/2024 Encounter Details Date Type Department Care Team ([facility] st Contact Info) Description 06/23/2024 Telephone [facility] [address] [place] [address] Faith Peters MD [address] [place], [place] [phone] Results Social History Tobacco Use Types Packs/Day [...] Description 11/03/2025 8:00 AM EST Office Visit [facility] [address] [place] [address] Xavier Solis documented as of this encounter Visit Diagnoses Not on filedocumented in this encounter Care Teams Vest Backer Relationship Specialty Start Date End Date Faith Peters MD [address] [place] [phone] PCP - General Family Medicine 09/06/13 documented as of this encounter
--- OUTSIDE RECORDS SUMMARY | 2025-05-29 09:49 | XMS_ITS | Encounter Summary ---
Author Organization [employer] Address [address] [facility] [address] [place] [address] Care Team Providers Care Education Professional Name Role Phone Faith Peters MD Primary Care Provider [phone] Encounter Details Date Type Department Care Team (Latest Contact Info) Description 01/07/[address] [facility] Dental, Provider, DDS Social History [...] Description 11/03/2025 8:00 AM EST Office Visit [facility] [address] [place] [address] Xavier Solis documented as of this encounter Visit Diagnoses Not on filedocumented in this encounter Care Teams Education Professional Relationship Specialty Start Date End Date Faith Peters MD [address] [place] [id number] PCP - General Family Medicine 09/06/13 documented as of this encounter
== END 2025-05-29 09:33 | disposition home or self-care (01) ==
LOC: HO.HCS 09:09
PROVIDERS: PCP Student in an Organized Health Care Education/Training Program; Visit Provider Internal Medicine Cardiovascular Disease
DX: I10 Essential (primary) hypertension (principal); E78.5 Hyperlipidemia, unspecified
CPT/HCPCS: 93010; 99214

== ENCOUNTER → 2025-05-29 09:08 | Outpatient (BNVA) | payer OTHER, SELFPAY | PROVIDERS: PCP Student in an Organized Health Care Education/Training Program; Visit Provider Internal Medicine Cardiovascular Disease | DX: I10 Essential (primary) hypertension (principal) | CPT/HCPCS: 93005 ==

== ENCOUNTER 2025-05-31 07:34 | Outpatient (REF) | payer OTHER, SELFPAY ==
--- OUTSIDE RECORDS SUMMARY | 2025-05-31 07:38 | XMS_ITS | Encounter Summary ---
Author Organization [email or web address] Address 75 [facility] 7t [place] [address] Care Team Providers Care Upset Welding Machine Operator Name Role Phone Faith Peters MD Primary Care Provider [phone] Encounter Details Date Type Department Care Team (Latest Contact Info) Description 01/07/2022 Abstract [facility] CONVERSIONS Dental, Provider, DDS Social History [...] Description 11/03/2025 8:00 AM EST Office Visit [facility] ADULT D[facility] [address] [place] [address] Xavier Solis documented as of this encounter Visit Diagnoses Not on filedocumented in this encounter Care Teams Upset Welding Machine Operator Relationship Specialty Start Date End Date Faith Peters MD [address] [place] [phone] PCP - General Family Medicine 09/06/13 documented as of this encounter
--- OUTSIDE RECORDS SUMMARY | 2025-05-31 07:38 | XMS_ITS | Encounter Summary ---
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 * Telephone Encounter - iLto Coffey - 06/23/2024 2:08 PM EDT Tc from pt returning a call back due to her being at work and couldn't answer. She's worry about her results and will like a callback once again. documented in this encounter Plan of Treatment Upcoming Encounters Date Type Department Care Team (Late st Contact Info) Description 11/03/2025 8:00 AM EST Office Visit [facility] ADULT DENTAL [address] [place] [address] Xavier Solis documented as of this encounter Visit Diagnoses Not on filedocumented in this encounter Care Teams Funeral Car Chauffeur Relationship Specialty Start Date End Date Faith Peters MD [address] [place] [phone] PCP - General Family Medicine 09/06/13 documented as of this encounter
--- OUTSIDE RECORDS SUMMARY | 2025-05-31 07:38 | XMS_ITS | Clinical Summary ---
Author Organization [employer] Address 75 [facility] 7t [place] [address] Care Team Providers Care Microbiology Lab Analyst Name Role Phone Faith Peters MD Primary Care Provider [phone] Allergies Active Allergy Reactions Criticality Noted Date [...] Description 05/18/2025 8:00 AM EDT Office Visit [facility] ADULT DENTAL [address] [place] [address] Nati Penn DDS 05/11/2025 Travel 05/05/2025 8:00 AM EDT Office Visit [facility] ADULT DENTAL [address] [place] [address] Xavier Solis 04/28/2025 Travel 03/15/2025 Telephone [facility] MED & PEDS [address] [place] [address] Faith Peters MD Nurse Triage from Last [...] Description 11/03/2025 8:00 AM EST Office Visit [facility] ADULT DENTAL [address] [place] [address] Xavier Solis Health Maintenance Due Date Last [...] 9:16 AM EDT) Triglycerides 115 <150 mg/dL [facility] Comment:Desirable Triglyceri de: less than 150 mg/dLBorderline High Triglyceride 150-199 mg/dLHigh Triglyceride: 200-499 mg/dLVery High Triglyceride: greater than or equal to 5OO mg/dL Cholesterol 186 <200 mg/dL [facility] Comment:Desirable Cholestero l: less than 200 mg/dLBorderline High Cholesterol: 200-239 mg/dLHigh Cholesterol: greater than 239 mg/dL LDL Cholesterol Calculated 122(H) <100 mg/dL [facility] Comment:Desirable LDL: less than 100 mg/dLNear Optimal/Above Optimal LDL: 110- 129 mg/dLBorderline High LDL: 130-159 mg/dLHigh LDL: 160-189 mg/dLVery High LDL: greater than or equal to 190 mg/dL HDL Cholesterol 41 >40 mg/dL [facility] Comment:Desirable HDL: great er than 40 mg/dL Note: This HDL assay may give artificially low results in patients with liver disease. Blood Venous blood specimen / Unknown 01/18/2025 9:16 AM EDT 01/18/2025 2:08 PM EDT us Faith Peters MD LAB BLOOD ORDERABLES Final Resul t [facility] [address] [place] [address] [phone] * BI Mammogram Screening Tomosynthesis Bilateral (04/22/2023 8:49 AM EDT) Anatomical Region Laterality Modality Breast Bilateral Mammography 04/22/2023 8:49 AM EDT Narrative 05/08/2023 10:49 AM EDT [address] [place] [address] Mammography Report Signed Patient: Hilda Banerjee MR#: [id number] : 1975 Acct:[id number] Age/Sex: 48 / F ADM Date: 04/22/23 Loc: HO.MAMMO Attending Dr: Faith Peters MD Ordering Physician: Faith Peters MD Results: 2Benign Findings Date of Service: 04/22/23 Follow Up: 1 Year From Orig ina Mammogram Procedure(s): MM tomosynthesis screening BI Accession Number(s): [id number] cc: Faith Peters MD EXAMINATION: MM SCREENING [...] in OV> 05/08/23 1045 DD/ 0849 TD/TT: Extractor Puller: Procedure Note Donotuseinterpreter, Image - 05/11/[address] [place] [address] Mammography Report Signed Patient: Hilda BanerjeeMR#: [id number] : 1975Acct:[id number] Age/Sex: 48 / FADM Date: 04/22/23 Loc: HO.MAMMO Attending Dr: Faith Peters MD Ordering Physician: Faith Peters MDResults: 2Benign Findings Date of Service: 04/22/23Follow Up: 1 Year From Orig inal Mammogram Procedure(s): MM tomosynthesis screening BI Accession Number(s): [id number] cc: Faith Peters MD EXAMINATION: MM SCREENING [...] in OV> 05/08/23 1045 DD/ 0849 TD/TT: Extractor Puller: Faith Peters MD IMG BI PROCEDURES Edited [...] mRNA E6/E7 rflx Not Detected Not Detected [facility] Comment: Methodology: Operator Command Support Systems-Mediated Amplification This assay detects E6/E7 viral messenger RNA (mRNA) from 14 high-risk HPV types (16,18,31,33,35,39,45,51,52,56,58,59,66,68). Cervical sources are required for HPV testing. If a vaginal source from a patient who has had a total hysterectomy with removal of cervix was submitted, please contact the testing laboratory for alternative testing options. For additional information, please refer to http://Pockethernet/faq/GYW507o6 (This link if provided for information/ educational purposes only.) THIS TEST WAS PERFORMED AT: [facility] [address] [place] [address] [address]LOOR,[place] [address] STEFFANIE MCDOWELL MD 03/27/2022 12:1 2 PM EDT Roberto Hinojosa MD HISTORICAL/NON ORDERABLE LABS Fi nal Result [facility] [address] * THINPREP TIS PAP AND HPV mRNA E6/E7, CT/NG, TRICH (10/15/2021 11:08 AM EST) Chlamydia trachomatis RNA, TMA, Urogenital NOT DETECTED NOT DETECTED [facility] Clinical Information: None given [facility] COMMENT SEE COMMENT [facility] Comment: The analytical performance characteristics of this assay, when used to test SurePath(TM) specimens have been determined by [facility]. The modifications have not been cleared or approved by the FDA. This assay has been validated pursuant to the CLIA regulations and is used for clinical purposes. For additional information, please refer to https://GreenPal.[employer]/faq/ATQ186 (This link is being provided for information/ [...] has been evaluated with computer assisted technology. [facility] Chef De Cuisine: SEE COMMENT [facility] Comment: [facility] CT screening location: [place] [address] HPV nRNA E6/E7 Not Detected Not Detected [facility] Comment: Methodology: Operator Command Support Systems-Mediated Amplification This assay detects E6/E7 viral messenger RNA (mRNA) from 14 high-risk HPV types (16,18,31,33,35,39,45,51,52,56,58,59,66,68). The analytical performance characteristics of this assay have been determined by [facility]. The modifications have not been cleared or approved by the FDA. This assay has been validated pursuant to the CLIA regulations and is used for clinical purposes. For additional information, please refer to http://education.[employer] an [employer]/faq/DAQ108z8 (This link if provided for information/ educational purposes only.) Interpretation/Re sult: Negative for intraepithelial lesion or malignancy. [facility] LMP: 10/07/21 [facility] Neisseria gonorrhoeae RNA, TMA, Urogenital NOT DETECTED NOT DETECTED [facility] Prev. BX: NONE GIVEN [facility] Prev. PAP: HX ASCUS HPV 2019 CIN1 COLPO [facility] Review Chef De Cuisine: SEE COMMENT [facility] Comment: RMM, CT(ASCP) CT screening location: [place] [address] SOURCE: None given [facility] Statement Of Adequacy: SEE COMMENT [facility] Comment: Satisfactory for evaluation. Endocervical/transformation zone component present. Partially obscuring blood Trichomonas vaginalis, QL, TMA, PAP Vial NOT DETECTED NOT DETECTED [facility] Comment: The analytical performance characteristics of this assay have been determined by [facility]. The modifications have not been cleared or approved by the FDA. This assay has been validated pursuant to the CLIA regulations and is used for clinical purposes. For additional information, please refer to http://GreenPal.[employer] an [employer]/ faq/Trichomonastma (This link is being provided for information/ educational purposes only.) 10/15/2021 11:0 8 AM EST Meli GANDHI LAB PATHOLOGY ORDERABLES Final Result [facility] [address] * HEPATITIS C AB W/REFL TO HCV RNA, QN, PCR (07/05/2020 4:07 PM EST) HEPATITIS C ANTIBODY NON-REACT DELMI NON-REACT DELMI [facility] INDEX 0.04 <1.00 [facility] Comment: HCV antibody was non-reactive. There is no laboratory evidence of HCV infection. In most cases, no further action is required. However, if recent HCV exposure is suspected, a test for HCV RNA (test code 75266) is suggested. For additional information please refer to http://GreenPal.[employer]/faq/QJW46t0 (This link is being provided for informational/ educational purposes only.) HEPATITIS C ANTIBODY NON-REACT DELMI NON-REACT DELMI [facility] INDEX 0.04 <1.00 [facility] Comment: HCV antibody was non-reactive. There is no laboratory evidence of HCV infection. In most cases, no further action is required. However, if recent HCV exposure is suspected, a test for HCV RNA (test code 33560) is suggested. For additional information please refer to http://GreenPal.[employer]/faq/JDO47i2 (This link is being provided for informational/ educational purposes only.) HEPATITIS C ANTIBODY NON-REACT DELMI NON-REACT DELMI [facility] INDEX 0.04 <1.00 [facility] Comment: HCV antibody was non-reactive. There is no laboratory evidence of HCV infection. In most cases, no further action is required. However, if recent HCV exposure is suspected, a test for HCV RNA (test code 72164) is suggested. For additional information please refer to http://GreenPal.[employer]/faq/LUI48i2 (This link is being provided for informational/ educational purposes only.) 07/05/2020 4:07 PM EST us Quique Weinberg MD HISTORICAL/NON ORDERABLE LABS Fi nal Result [facility] [address] * HIV 1/2 ANTIGEN/ANTIBODY,FOURTH GENERATION W/RFL (07/05/2020 4:07 PM EST) HIV-1/2 ANTIGEN AND ANTIBODIES, 4TH GENERATION W/ REFLEX NON-REACT DELMI NON-REACT DELMI [facility] Comment: HIV-1 antigen and HIV-1/HIV-2 [...] purpose. For additional information please refer to http://Pockethernet/faq/ALK443 (This link is being provided for informational/ educational purposes only.) The performance of this assay has not been clinically validated in patients less than 2 years old. HIV-1/2 ANTIGEN AND ANTIBODIES, 4TH GENERATION W/ REFLEX NON-REACT DELMI NON-REACT DELMI [facility] Comment: HIV-1 antigen and HIV-1/HIV-2 [...] purpose. For additional information please refer to http://GreenPal.[employer]/faq/RDX346 (This link is being provided for informational/ educational purposes only.) The performance of this assay has not been clinically validated in patients less than 2 years old. HIV-1/2 ANTIGEN AND ANTIBODIES, 4TH GENERATION W/ REFLEX NON-REACT DELMI NON-REACT DELMI [facility] Comment: HIV-1 antigen and HIV-1/HIV-2 [...] purpose. For additional information please refer to http://GreenPal.[employer]/faq/EGE064 (This link is being provided for informational/ educational purposes only.) The performance of this assay has not been clinically validated in patients less than 2 years old. 07/05/2020 4:07 PM EST us Quique Weinberg MD LAB BLOOD ORDERABLES Final Resul t Performing Organization Address City/State/[facility] Co de Phone Number [facility] Formerly [facility] [address] from Last 3 Months or Most Recently Relevant to Health Maintenance Insurance [facility] , [address] [place] [address] [facility] Care Teams Microbiology Lab Analyst Relationship Specialty Start Date End Date Faith Peters MD [address] [place] [phone] PCP - General Family Medicine 09/06/13
[2025-05-31 08:57] LABS: Cholesterol 205 mg/dL (<200); HDL Cholesterol 49 mg/dL (>40); Triglycerides 109 mg/dL (<150)
== END 2025-05-31 07:35 | disposition home or self-care (01) ==
LOC: HO.LAB 07:34
PROVIDERS: PCP Student in an Organized Health Care Education/Training Program; Visit Provider Internal Medicine Cardiovascular Disease
DX: E78.5 Hyperlipidemia, unspecified (principal)
CPT/HCPCS: 36415; 80061

== ENCOUNTER 2025-07-22 10:26 | Outpatient (REF) | payer OTHER, SELFPAY ==
--- NOTE | ~2025-07-22 | MM_ITS ---
EXAMINATION: MM SCREENING DIGITAL BREAST TOMOSYNTHESIS, BILATERAL CLINICAL INFORMATION: Screening. Asymptomatic. COMPARISON: Comparison made to multiple prior, most recent April 22, 2023, and most remote December 23, 2016. TECHNIQUE: Digital breast tomosynthesis is performed in mediolateral oblique and craniocaudal views along with computer-aided detection (CAD). Synthesized 2D images are generated from the tomosynthesis. FINDINGS: BREAST COMPOSITION: The breasts are heterogeneously dense, which may obscure small masses. BILATERAL BREASTS: No significant masses, suspicious calcifications or other abnormalities are seen in either breast. MM/MM tomosynthesis screening BI IMPRESSION: BILATERAL BREASTS: Negative, no mammographic evidence of malignancy. Normal interval follow-up is recommended in 12 months. ASSESSMENT: BI-RADS: Category 1: Negative RECOMMENDATION: Routine annual mammography screening. FOLLOW-UP: 1 year F/U This examination should not preclude the clinical evaluation of a suspicious palpable abnormality. This patient's information was entered into a reminder system with a target due date for their next mammogram. Electronically signed by: Steven Andrade MD 07/25/2025 07:56 AM EST
--- OUTSIDE RECORDS SUMMARY | 2025-07-22 10:29 | XMS_ITS | Encounter Summary ---
Author Organization [employer] Address 75 [facility] 7t [place] [address] Care Team Providers Care Clinical Services Professional Name Role Phone Faith Peters MD Primary Care Provider [phone] Dereje Glover MD Primary Care Prov ider Reason for Visit * Reason Onset Date Comments Results 06/23/2024 Encounter Details Date Type Department Care Team ([facility] st Contact Info) Description 06/23/2024 Telephone [facility] MED[facility] [address] [place] [address] Faith Peters MD [address] [place] [address] Results Social History Tobacco Use Types Packs/Day [...] Care Team (Late st Contact Info) Description 10/09/2025 8:45 AM EST Office Visit [facility] PED[facility] [address] [place] [address] Dereje Glover MD [address] [place] [address] 11/03/2025 8:00 AM EST Office Visit [facility] [address] [place] [address] Xavier Solis documented as of this encounter Visit Diagnoses Not on filedocumented in this encounter Care Teams Clinical Services Professional Relationship Specialty Start Date End Date Faith Peters MD [address] [place] [phone] PCP - General Family Medicine 09/06/13 06/05/25 Dereje Glover MD [address] [place] [address] Torrie SARAH [address] PCP - General Internal Medicine 06/06/25 documented as of this encounter
--- OUTSIDE RECORDS SUMMARY | 2025-07-22 10:29 | XMS_ITS | Clinical Summary ---
Author Organization [employer] Address [address] [facility] [address] [place] [address] Care Team Providers Care Elevator Runner Name Role Phone Dereje Glover MD Primary Care Prov ider Allergies Active Allergy Reactions Criticality Noted Date Comments Amoxicillin Hives 02/18/2012 Azithromycin Hives 12/22/2022 Erythromycin Base 12/22/2022 Other Reaction(s): Hives, redness Medications FLUoxetine (PROzac) 10 MG tablet TAKE 1 AND 1/2 TABLETS BY MOUTH EVERY MORNING WITH A MEAL 05/15/20 22 Active Hyrimoz 40 MG/0.4ML solution auto-injector 0 Refills, Maintenance, 05/09/24 8:24:00 EDT, Partial fill upon patient request if the prescription is for a schedule II opioid drug. 01/30/20 24 Active atomoxetine (Strattera) 25 MG capsule 06/20/20 24 Active Cholecalciferol (Vitamin D3) 50 MCG (1999 UT) chewable tablet 05/01/20 23 Active estradiol (Estrace) 0.1 MG/GM vaginal cream Insert 2 g into the vagina. 12/09/19 23 Active LORazepam (Ativan) 0.5 MG tablet 05/01/20 23 Active methotrexate 2.5 MG tablet Take 12.5 mg by mouth 1 (one) time per week. 02/14/20 25 Active folic acid (Folvite) 1 MG tablet Take 1 tablet by mouth Once per day. 03/21/20 25 Active levothyroxine (Synthroid, Levoxyl) 150 MCG tabletIndicatio ns:Hypothyroidi sm, unspecified type TAKE 1 TABLET (150 MCG) BY MOUTH ONCE PER DAY. 90 tablet 3 06/23/20 25 Active lisinopril-hydr oCHLOROthiazide 20-25 MG tabletIndicatio ns:Primary hypertension TAKE 1 TABLET BY MOUTH EVERY DAY 90 tablet 3 07/06/20 Active levothyroxine (Synthroid, Levoxyl) 150 MCG tabletIndicatio ns:Hypothyroidi sm, unspecified type Take 1 tablet (150 mcg) by mouth Once per day. 270 tablet 3 06/21/20 24 2024 Discontinued lisinopril-hydr oCHLOROthiazide 20-25 MG tabletIndicatio ns:Primary hypertension Take 1 tablet by mouth Once per day. 90 tablet 3 06/21/20 24 2024 Discontinued Active Problems Problem Noted Date Diagnosed Date Abnormal uterine bleeding (AUB) 06/21/2024 Complex ovarian cyst 06/21/2024 Diverticulosis of colon 06/21/2024 Dysplasia of cervix, low grade (MATHEW 1) Endometrial adenocarcinoma (CMS/HCC) 06/21/2024 Assessment & Plan (06/06/2025 11:21 AM EDT): Had surgery on 2021, no bleeding, follow up oncology/gynecology Endometrial polyp 06/21/2024 Family history of colon cancer 06/21/2024 Hemorrhoids 06/21/2024 History of menorrhagia 06/21/2024 Iron deficiency anemia 06/21/2024 Class 1 obesity 06/21/2024 Palpitations 06/21/2024 Encounter for screening colonoscopy 06/21/2024 Sessile serrated polyp of colon 06/21/2024 Surgical menopause on hormone replacement therap y 06/21/2024 Umbilical hernia 06/21/2024 Fibroids 06/21/2024 Uterine myoma 06/21/2024 Hypertension 06/21/2024 Hypothyroid 06/21/2024 Assessment & Plan (06/06/2025 11:17 AM EDT): Clinically and chemically euthyroid, continue current medication H/O total hysterectomy with removal of both tubes and ovaries 08/07/2022 Endometrial cancer 07/15/2022 Optic disc edema 01/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 High blood pressure 10/20/2012 Obstructive sleep apnea syndrome 10/20/2012 Obesity 10/20/2012 Attention deficit hyperactiv ity disorder, 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 Rheumatoid arthritis (CMS/HCC) 08/31/1999 Assessment & Plan (06/06/2025 11:22 AM EDT): On strattera/methotrexate, followed by pheumatology, no changes will be made Hypothyroidism 08/31/1986 Resolved Problems Problem Noted Date Diagnosed Date Resolved Date Acute chest wall pain 06/21/20242023 Chest pain 06/21/2024 06/21/2024 Musculoskeletal pain 06/21/2024 024 Preop cardiovascular exam 06/21/2024 Encounters Date Type Department Care Team Description 07/12/2025 5:40 PM EST Office Visit [facility] [address] [place], [place] [id number] Larry Mcmahon MD Lip lesion (Primary Dx) 07/12/2025 Travel 07/12/2025 Telephone [facility] [address] [place] [address] Dereje Glover MD Nurse Triage 07/06/2025 Refill [facility] [address] [place] [address] Faith Peters MD Primary hypertension 06/22/2025 Refill [facility] [address] [place] [address] Faith Peters MD Hypothyroidism, unspecified type 06/19/2025 3:15 PM EDT Office Visit [facility] [address] [place] [address] Dereje Glover MD Congestion of nasal sinus; Sore throat 06/19/2025 Travel 06/19/2025 Telephone [facility] [address] [place] [address] Dereje Glover MD Nurse Triage 06/06/2025 9:00 AM EDT Telemedicine [facility] [address] [place] [address] Dereje Glover MD Acquired hypothyroidism (Primary Dx); Endometrial cancer (HCC); Rheumatoid arthritis of other site with positive rheumatoid factor (HCC); Endometrial adenocarcinoma (CMS/HCC) (HCC) 06/06/2025 Travel 06/05/2025 Travel 06/05/2025 Telephone [facility] [address] [place] [address] Faith Peters MD Chart Prep 05/31/2025 Orders Only GENERIC EXTERNAL DATA DEPARTMENT Provider, Generic External Data 05/18/2025 8:00 AM EDT Office Visit [facility] [address] [place] [address] Nati Penn DDS 05/11/2025 Travel 05/05/2025 8:00 AM EDT Office Visit [facility] [address] [place] [address] Xavier Solis 04/28/2025 Travel from Last 3 Months Immunizations Immunization Administration Dates Next Due INFLUENZA INJECTABLE QUADRIV ALANT CCIIV4 MDCK Multi-dose vial 07/03/2021 Influenza injectable quadriv alent IIV4 with preservative 06/23/2017,05/17/2015 Influenza injectable quadriv alent preservative free 09/19/2022 Influenza, trivalent, adjuvanted 07/26/2024 Pfizer Covid-19 Vaccine 12+ 10/10/2021,,01/24/2021 Pfizer Covid-19 Vaccine 12+ kelsey-sucrose (James Cap) 10/10/2021 Tdap 06/21/2024,07/14/2012 Family History Medical History Relation Name Comments Colon cancer Father Hypertension Father Diabetes type II Maternal Grandmother Cervical cancer Mother Hypertension Mother Osteoarthritis Mother Relation Name Status Comments Father Maternal Grandmother Mother Social History Tobacco Use Types Packs/Day Years Used Date Smoking Tobacco: Never Passive Smoke Exposure: Never Smokeless Tobacco: Never Tobacco Cessation:Counseling Given: Not Answered Alcohol Use Standard Drinks/Week Comments Yes 1 (1 standard drink = 0.6 oz pur e alcohol) 1-2 times a month mostly beer Depression Answer Date Recorded Patient Health Questionnaire-9 Score 4 01/18/2025 Patient Health Questionnaire-9 Score 4 01/18/2025 Last PHQ-9: Questionnaire Data Not on file 0 01/18/2025 Housing Stability Answer Date Recorded What is your housing situation today? I have adama sing 01/09/[address] you li [...] Sign Reading Time Taken Comments Blood Pressure 122/87 07/12/2025 5:53 PM EST Pulse 84 07/12/2025 5:53 PM EST Temperature 36.5 C (97.7 F) 07/12/2025 5:53 PM EST Respiratory Rate 16 07/12/2025 5:53 PM EST Oxygen Saturation 98% 07/12/2025 5:53 PM EST Inhaled Oxygen Concentration - - Weight 95.1 kg (209 lb 9.6 oz) 07/12/2025 5:53 P M EST Height 167.6 cm (5' 6 ) 07/12/2025 5:53 PM EST Body Mass Index 33.83 07/12/2025 5:53 PM EST Plan of Treatment Upcoming Encounters Date Type Department Care Team (Late st Contact Info) Description 10/09/2025 8:45 AM EST Office Visit [facility] [address] [place] [address] Dereje Glover MD [address] [place] [address] 11/03/2025 8:00 AM EST Office Visit [facility] [address] [place] [address] Xavier Solis Health Maintenance Due Date Last [...] (1 of 2) 2025 COVID-19 Vaccine ( - 2024- season) 2025 10/10/2021, 10/10/2021, 02/14/2021, Additional history exists Influenza Vaccine (#1) 2025 , 09/19/2022, 07/03/2021, Additional history exists Dental X-Ray: Bitewings 07/12/2025 07/11/2024 Dental Prophylaxis 08/05/2025 05/05/2025, 0 10/12/2024, 07/11/2024, Additional history exists SDOH Screening 01/09/2026 01/09/2025 Alcohol/Substance Use Screening 01/18/2026 01/18/2025 Depression Screening 01/18/2026 01/18/2025, 01/19/20 25 Disability Screening 01/18/2026 01/18/2025 Tobacco Screening 06/06/2026 06/06/2025 Dental X-Ray: Full Mouth 08/18/2027 08/17/2024 Colonoscopy 03/12/2028 03/12/2023 Colorectal Cancer Screening 03/12/2028 Lipid Panel 05/31/2030 05/31/2025, 12/30, 10/22/2024, Additional history exists DTaP/Tdap/Td Vaccines (3 - [...] Procedure Name Priority Date/Time Associated Diagnosis Comments POCT INFLUENZA A Routine 06/19/2025 4:02 PM EDT Congestion of nasal sinus POCT INFLUENZA B Routine 06/19/2025 4:01 PM EDT Congestion of nasal sinus POCT RAPID STREP A Routine 06/19/2025 4: 01 PM EDT Sore throat POCT RAPID COVID ANTIGEN Routine 06/19/2025 4:00 PM EDT Congestion of nasal sinus LIPID PANEL, STANDARD Routine 05/31/2025 7:48 AM EDT 30 O RESIN-BASED COMPOSITE - 1 SURF, [...] AMALGAM FILLING Routine 05/05/2025 12:00 AM EDT PANORAMIC RADIOGRAPHIC IMAGE Routine 08/17/2024 9:30 AM [...] Recently Relevant to Health Maintenance Results * POCT Rapid Influenza A OSOM (06/19/2025 4:02 PM EDT) Pathologist [facility] Rapid Influenza A Ag Negative Negative, Indeterminate QC Media Lot # [id number] Lot# Expiration Date ,379,363 Swab Nasopharyngeal structure / Unknown 06/19/2025 4:02 PM EDT Dereje Zavala MD POINT OF C ARE TEST ENTER/EDIT ORDERABLES Edited Result - Final * POCT Rapid Influenza B OSOM (06/19/2025 4:01 PM EDT) [facility] Rapid Influenza B Ag Negative Negative, Indeterminate QC Media Lot # [id number] Lot# Expiration Date Swab 06/19/2025 4:01 PM EDT Dereje Zavala MD POINT OF CARE TEST ENTER/EDIT ORDERABLES Final Result * POCT Rapid Strep A OSOM (06/19/2025 4:01 PM EDT) [facility] Rapid Strep A Screen Negative Negative, None Detected QC Media Lot # [id number] Lot# Expiration Date , Swab 06/19/2025 4:01 PM EDT Dereje Zavala MD POINT OF CARE TEST ENTER/EDIT ORDERABLES Final Result * POCT Rapid Covid-19 BinaxNOW (06/19/2025 4:00 PM EDT) [facility] Rapid COVID Ag Negative QC Media Lot # [id number] Lot# Expiration Date ,026 Swab 06/19/2025 4:00 PM EDT Dereje Zavala MD POINT OF CARE TEST ENTER/EDIT ORDERABLES Final Result * (ABNORMAL) Lipid Panel, Standard (05/31/2025 7:48 AM EDT) [facility] Triglycerides 109 <150 mg/dL [facility] Comment:Desirable Triglyceri de: less than 150 mg/dLBorderline High Triglyceride 150-199 mg/dLHigh Triglyceride: 200-499 mg/dLVery High Triglyceride: greater than or equal to 5OO mg/dL Cholesterol 205(H) <200 mg/dL [facility] Comment:Desirable Cholestero l: less than 200 mg/dLBorderline High Cholesterol: 200-239 mg/dLHigh Cholesterol: greater than 239 mg/dL LDL Cholesterol Calculated 135(H) <100 mg/dL [facility] Comment:Desirable LDL: less than 100 mg/dLNear Optimal/Above Optimal LDL: 110- 129 mg/dLBorderline High LDL: 130-159 mg/dLHigh LDL: 160-189 mg/dLVery High LDL: greater than or equal to 190 mg/dL HDL Cholesterol 49 >40 mg/dL [facility] Comment:Desirable HDL: great er than 40 mg/dL Note: This HDL assay may give artificially low results in patients with liver disease. 05/31/2025 7:48 AM EDT 05/31/2025 7:48 AM EDT us Generic External Data Provider LAB BLOOD ORDERAB LES Final Result Performing Organization Address City/State/[facility] Co de Phone Number [facility] [address] [place] [phone] * BI Mammogram Screening Tomosynthesis Bilateral (04/22/2023 8:49 AM EDT) Anatomical Region Laterality Modality Breast Bilateral Mammography 04/22/2023 8:49 AM EDT Narrative 05/08/2023 10:49 AM EDT [facility] [address] [place] [address] Mammography Report Signed Patient: Hilda Banerjee MR#: [id number] : 1975 Acct:[id number] Age/Sex: 48 / F ADM Date: 04/22/23 Loc: HO.MAMMO Attending Dr: Faith Peters MD Ordering Physician: Faith Peters MD Results: 2Benign Findings Date of Service: 04/22/23 Follow Up: 1 Year From Orig ina Mammogram Procedure(s): MM tomosynthesis screening BI Accession Number(s): [id number] cc: Faith Peters MD EXAMINATION: MM SCREENING [...] in OV> 05/08/23 1045 DD/ 0849 TD/TT: Leather Sorter: Procedure Note Donotuseinterpreter, Image - 05/11/2023 [facility] [address] [place] [address] Mammography Report Signed Patient: Hilda BanerjeeMR#: [id number] : 1975Acct:[id number] Age/Sex: 48 / FADM Date: 04/22/23 Loc: HO.MAMMO Attending Dr: Faith Peters MD Ordering Physician: Faith Peters MDResults: 2Benign Findings Date of Service: 04/22/23Follow Up: 1 Year From Orig inal Mammogram Procedure(s): MM tomosynthesis screening BI Accession Number(s): [id number] cc: Faith Peters MD EXAMINATION: MM SCREENING [...] in OV> 05/08/23 1045 DD/ 0849 TD/TT: Leather Sorter: Faith Peters MD IMG BI PROCEDURES Edited Result - Final * Colonoscopy (03/12/2023) [facility] Colonoscopy Normal Normal Narrative Janay Guillen - 03/12/2023 Colonoscopy order added Historical Provider HEALTH MAINTENANCE Final Result * HPV E6/E7 RFLX GREGORIA 16 18/45 (03/27/2022 12:12 PM EDT) Pathologist [facility] HPV 16 RNA TNP [facility] HPV 18/45 RNA [facility]NP [facility] HPV E6 E7 ADD TNP [facility] HPV mRNA E6/E7 rflx Not Detected Not Detected [facility] Comment: Methodology: Animal Herder-Mediated Amplification This assay detects E6/E7 viral messenger RNA (mRNA) from 14 high-risk HPV types (16,18,31,33,35,39,45,51,52,56,58,59,66,68). Cervical sources are required for HPV testing. If a vaginal source from a patient who has had a total hysterectomy with removal of cervix was submitted, please contact the testing laboratory for alternative testing options. For additional information, please refer to http://CloudEngine.Aiotra/faq/NLK114z8 (This link if provided for information/ educational purposes only.) THIS TEST WAS PERFORMED AT: [facility] [address] [place] [address] [address]LO[address],[place] [address] STEFFANIE MCDOWELL MD 03/27/2022 12:1 2 PM EDT Roberto Hinojosa MD HISTORICAL/NON ORDERABLE LABS Fi nal Result [facility] [address] [place] [address], * THINPREP TIS PAP AND HPV mRNA E6/E7, CT/NG, TRICH (10/15/2021 11:08 AM EST) Chlamydia trachomatis RNA, TMA, Urogenital NOT DETECTED NOT DETECTED [facility] Clinical Information: None given [facility] COMMENT SEE COMMENT [facility] Comment: The analytical performance characteristics of this assay, when used to test SurePath(TM) specimens have been determined by [employer]. The modifications have not been cleared or approved by the FDA. This assay has been validated pursuant to the CLIA regulations and is used for clinical purposes. For additional information, please refer to https://CloudEngine.Aiotra/faq/UJF577 (This link is being provided for information/ [...] assisted technology. [facility] Grounds Manager: SEE COMMENT [facility] Comment: MSM, CT(ASCP) CT screening location: [employer] [address] [address] HPV nRNA E6/E7 Not Detected Not Detected [facility] Comment: Methodology: Animal Herder-Mediated Amplification This assay detects E6/E7 viral messenger RNA (mRNA) from 14 high-risk HPV types (16,18,31,33,35,39,45,51,52,56,58,59,66,68). The analytical performance characteristics of this assay have been determined by [employer]. The modifications have not been cleared or approved by the FDA. This assay has been validated pursuant to the CLIA regulations and is used for clinical purposes. For additional information, please refer to http://CloudEngine.Aiotra/faq/PJA448d7 (This link if provided for information/ educational [...] COLPO [facility] Review Grounds Manager: SEE COMMENT [facility] Comment: RMM, CT(ASCP) CT screening location: [place] [address] SOURCE: None given [facility] Statement Of Adequacy: SEE COMMENT [facility] Comment: Satisfactory for evaluation. Endocervical/transformation zone component present. Partially obscuring blood Trichomonas vaginalis, QL, TMA, PAP Vial NOT DETECTED NOT DETECTED [facility] Comment: The analytical performance characteristics of this assay have been determined by [employer]. The modifications have not been cleared or approved by the FDA. This assay has been validated pursuant to the CLIA regulations and is used for clinical purposes. For additional information, please refer to http://education.Aiotra/ faq/Trichomonastma (This link is being provided for information/ educational purposes only.) 10/15/2021 11:0 8 AM EST us Meli William CNM LAB PATHOLOGY ORDERABLES Final Result [facility] [address] * HEPATITIS C AB W/REFL TO HCV RNA, QN, PCR (07/05/2020 4:07 PM EST) HEPATITIS C ANTIBODY NON-REACT DELMI NON-REACT DELMI [facility] INDEX 0.04 <1.00 [facility] Comment: HCV antibody was non-reactive. There is no laboratory evidence of HCV infection. In most cases, no further action is required. However, if recent HCV exposure is suspected, a test for HCV RNA (test code 20117) is suggested. For additional information please refer to http://[employer] Liveshopping/faq/WZE91a6 (This link is being provided for informational/ educational purposes only.) HEPATITIS C ANTIBODY NON-REACT DELMI NON-REACT DELMI [facility] INDEX 0.04 <1.00 [facility] Comment: HCV antibody was non-reactive. There is no laboratory evidence of HCV infection. In most cases, no further action is required. However, if recent HCV exposure is suspected, a test for HCV RNA (test code 62047) is suggested. For additional information please refer to http://[employer]/faq/EQX20z7 (This link is being provided for informational/ educational purposes only.) HEPATITIS C ANTIBODY NON-REACT DELMI NON-REACT DELMI [facility] INDEX 0.04 <1.00 [facility] Comment: HCV antibody was non-reactive. There is no laboratory evidence of HCV infection. In most cases, no further action is required. However, if recent HCV exposure is suspected, a test for HCV RNA (test code 02685) is suggested. For additional information please refer to http://[employer]/faq/KRH14n9 (This link is being provided for informational/ educational purposes only.) 07/05/2020 4:07 PM EST us Quique Weinberg MD HISTORICAL/NON ORDERABLE LABS Fi nal Result [facility] [address] * HIV 1/2 ANTIGEN/ANTIBODY,FOURTH GENERATION W/RFL [...] purpose. For additional information please refer to http://CloudEngine.Aiotra/faq/OZZ907 (This link is being provided for informational/ educational purposes only.) The performance of this assay has not been clinically validated in patients less than 2 years old. HIV-1/2 ANTIGEN AND ANTIBODIES, 4TH GENERATION W/ REFLEX NON-REACT DELMI NON-REACT DELMI [facility] Comment: HIV-1 antigen and HIV-1/HIV-2 [...] purpose. For additional information please refer to http://CloudEngine.Aiotra/faq/DUS958 (This link is being provided for informational/ educational purposes only.) The performance of this assay has not been clinically validated in patients less than 2 years old. HIV-1/2 ANTIGEN AND ANTIBODIES, 4TH GENERATION W/ REFLEX NON-REACT DELMI NON-REACT DELMI [facility] Comment: HIV-1 antigen and HIV-1/HIV-2 [...] purpose. For additional information please refer to http://education.Boastify.CBLPath/faq/GBW636 (This link is being provided for informational/ educational purposes only.) The performance of this assay has not been clinically validated in patients less than 2 years old. 07/05/2020 4:07 PM EST us Quique Weinberg MD LAB BLOOD ORDERABLES Final Resul t [facility] [address] from Last 3 Months or Most Recently Relevant to Health Maintenance Insurance [facility] , [address] [place] [address] [facility] Care Teams Elevator Runner Relationship Specialty Start Date End Date Dereje Glover MD [address] [place] [phone] PCP - General Internal Medicine 06/06/25
--- OUTSIDE RECORDS SUMMARY | 2025-07-22 10:29 | XMS_ITS | Encounter Summary ---
Author Organization [employer] Address [address] [facility] [address] [place] [address] Care Team Providers Care Road Worker Name Role Phone Dereje Glover MD Primary Care Prov ider Reason for Visit * Reason Onset Date Comments Nurse Triage 06/19/2025 Encounter Details Date Type Department Care Team ([facility] st Contact Info) Description 06/19/2025 Telephone [facility] [address] [place], [place] [phone] Dereje Glover MD [address] [place] [address] Nurse Triage Social History Tobacco Use Types Packs/Day Years [...] encounter Miscellaneous Notes * Telephone Encounter - Enedina Mujica RN - 06/19/2025 2:17 PM EDT TC returned to pt regarding URI symptoms she was seen in urgent care 06/17/25 at that time all rapid testing came back negative. Pt continues with symptoms and out of work todya Tc from pt stating she is experiencing sore throat , body aches , earache , congestion and runny nose . Pt states she went to urgent care on 06/17 Contact pt at [phone] * Telephone Encounter - Lamin Colon - 06/19/2025 2:11 PM EDT Tc from pt stating she is experiencing sore throat , body aches , earache , congestion and runny nose . Pt states she went to urgent care on 06/17 Contact pt at [phone] documented in this encounter Plan of Treatment Upcoming Encounters Date Type Department Care Team (Late st Contact Info) Description 10/09/2025 8:45 AM EST Office Visit [facility] [address] [place] [address] Dereje Glover MD [address] [place] [address] 11/03/2025 8:00 AM EST Office Visit [facility] [address] [place] [address] Xavier Solis documented as of this encounter Visit Diagnoses Not on filedocumented in this encounter Additional Health Concerns Assessment Noted Time PHQ-9 Depression Total Score: 4 01/19/20 9:08 AM EDT documented as of this encounter Care Teams Road Worker Relationship Specialty Start Date End Date Dereje Glover MD [address] [place] [address] PCP - General Internal Medicine 06/06/25 documented as of this encounter
--- OUTSIDE RECORDS SUMMARY | 2025-07-22 10:29 | XMS_ITS | Encounter Summary ---
Author Organization [employer] Address 75 [facility] [address] [place] [address] Care Team Providers Care Lockstitch Front Maker Name Role Phone Faith Peters MD Primary Care Provider [phone] Dereje Glover MD Primary Care Prov ider Encounter Details Date Type Department Care Team (Latest Contact Info) Description 01/07/2022 Abstract [facility] CON[facility] Dental, Provider, DDS Social History [...] Description 10/09/2025 8:45 AM EST Office Visit [facility] [address] [place] [address] Dereje Glover MD [address] [place] [address] 11/03/2025 8:00 AM EST Office Visit [facility] [address] [place] [address] Xavier Solis documented as of this encounter Visit Diagnoses Not on filedocumented in this encounter Care Teams Lockstitch Front Maker Relationship Specialty Start Date End Date Faith Peters MD [address] [place] [address] PCP - General Family Medicine 09/06/13 06/05/25 Dereje Glover MD [address] [place] [id number] PCP - General Internal Medicine 06/06/25 documented as of this encounter
== END 2025-07-22 10:27 | disposition home or self-care (01) ==
LOC: HO.MAMMO 10:26
PROVIDERS: PCP Internal Medicine; Visit Provider Student in an Organized Health Care Education/Training Program
DX: Z12.31 Encounter for screening mammogram for malignant neoplasm of breast (principal)
CPT/HCPCS: 77063; 77067

== ENCOUNTER → 2025-07-22 10:30 | Outpatient (BNV) | payer OTHER, SELFPAY | PROVIDERS: PCP Internal Medicine; Visit Provider Radiology Body Imaging | DX: Z12.31 Encounter for screening mammogram for malignant neoplasm of breast (principal) | CPT/HCPCS: 77063; 77067 ==